=== PATIENT | female | born 1955 | race Asian ===

== ENCOUNTER 2016-11-07 19:34 | Emergency (ER) | payer OTHER ==
[2016-11-07 19:45] VITALS: TEMP 97.2; BMI 35.6
[2016-11-07] MEDS ORDERED: morphine CARPU-JECT 4 MG/1 ML DISP.SYRIN IVPUSH ONE ×2 (19:54→20:00)
[2016-11-07] MEDS ORDERED: morphine CARPU-JECT 4 MG/1 ML DISP.SYRIN ONE (19:56)
[2016-11-07 21:14] LABS: MCH 30.5 pg (25.7-33.7); MCHC 33.1 g/dl (32.0-36.0); MEAN CELL VOLUME 92.3 fl (80-96); MEAN PLT VOLUME 7.2 fl (7.5-11.1); PLATELET COUNT 187 K/MM3 (134-434); RDW 19.3 % (11.6-15.6); WHITE BLOOD COUNT 10.7 K/mm3 (4.0-10.0)
[2016-11-07 21:55] LABS: PLATELET ESTIMATE ADEQUATE (NORMAL)
[2016-11-07 22:20] LABS: ALBUMIN 2.7 g/dl (3.4-5.0); ANION GAP 7 (8-16); BILIRUBIN,TOTAL 0.5 mg/dL (0.2-1.0); CALCIUM 8.7 mg/dL (8.5-10.1); CO2 32 mmol/L (21-32); CREATININE 0.7 mg/dL (0.55-1.02); GLUCOSE,RANDOM 191 mg/dL (74-106); SGOT/AST 18 U/L (15-37); SGPT/ALT 32 U/L (12-78); TOT PROT 6.7 g/dl (6.4-8.2)
[2016-11-07 22:21] LABS: ALK PHOS 85 U/L (45-117)
[2016-11-07 22:48] LABS: URINE APPEARANCE SLCLOUDY; URINE BILIRUBIN NEGATIVE (NEGATIVE); URINE BLOOD 2+ (NEGATIVE); URINE COLOR LTYELLOW; URINE GLUCOSE (UA) NEGATIVE (NEGATIVE); URINE KETONE NEGATIVE (NEGATIVE); URINE NITRITE POSITIVE (NEGATIVE); URINE UROBILINOGEN NEGATIVE mg/dL (0.2-1.0)
[2016-11-07 22:58] LABS: URINE LEUK ESTERASE 3+ (NEGATIVE); URINE PROTEIN 1+ (NEGATIVE)
[2016-11-07 22:59] LABS: URINE RBC 9 /hpf (0-3); URINE WBC 93 /hpf (3-5)
[2016-11-07 23:00] LABS: URINE BACTERIA MANY /hpf (NONE SEEN)
[2016-11-07] MEDS ORDERED: CEFTRIAXONE 1 GM in DEXTROSE 5%-WATER - 50 ML IVPB ONE (23:13)
[2016-11-07] MEDS ORDERED: CEFTRIAXONE 50 ML ONE (23:22)
--- NOTE | 2016-11-08 00:23 | PDOC ---
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 On presentation the patient notes that the pain is severe and she is visibly uncomfortable. The son reports that the patient has never had urinary retention in the past. The patient denies chest pain, shortness of breath, headache and dizziness. Denies fever, chills, nausea, vomit, diarrhea and constipation. Denies dysuria, frequency, urgency and hematuria. Allergies: Aspirin, Ciprofloxacin Past surgical history: Colostomy bag, rectovaginal, bilateral nephro stenting Social history: No alcohol, tobacco or drug use reported <David Hutton - Last Filed: 11/08/16 00:24> <Patrick Cheng - Last Filed: 11/08/16 00:37> - General Chief Complaint: Pain, Acute Stated Complaint: PAIN Time Seen by Provider: 11/07/16 19:51 Past History <David Hutton - Last Filed: 11/08/16 00:24> - Past Medical History Anemia: Yes Cancer: Yes (vaginal 2014) Disorders: Yes (HEMATURIA,NEPHOSTOMY TUBES JACOBO.) HTN: Yes Thyroid Disease: No - Psycho/Social/Smoking Cessation Hx Anxiety: No Suicidal Ideation: No Smoking Status: No Smoking History: Never smoked Have you smoked in the past 12 months: No Number of Cigarettes Smoked Daily: 0 Information on smoking cessation initiated: No Hx Alcohol Use: No Drug/Substance Use Hx: No Substance Use Type: None Hx Substance Use Treatment: No <Patrick Cheng - Last Filed: 11/08/16 00:37> - Past Medical History Allergies/Adverse Reactions: Allergies Allergy/AdvReac Type Severity Reaction Status Date / Time aspirin Allergy Mild Rash Verified 11/07/16 19:48 ciprofloxacin Allergy Mild Rash Verified 11/07/16 19:48 Home Medications: Ambulatory Orders Metoprolol Succinate [Toprol XL -] 50 mg PO HS 02/08/12 Dexamethasone 4 mg PO DAILY 11/07/16 FENTANYL 12mcg PATCH [DURAGESIC 12mcg PATCH -] 1 patch TD PRN PRN 11/07/16 Glipizide 5 mg PO HS 11/07/16 Hydromorphone [Dilaudid -] 2 mg PO Q4H 11/07/16 Sulfamethoxazole/Trimethoprim [Bactrim Ds -] 1 tab PO BID #20 tablet 11/08/16 Review of Systems - Review of Systems Able to Perform ROS?: Yes Comments:: 11/08/16 00:24 CONSTITUTIONAL: No fever, no chills, no fatigue EYES: No visual changes ENT: No ear pain, no sore throat CARDIOVASCULAR: No chest pain, no palpitations RESPIRATORY: No cough, no SOB GI: (+) Diffuse abdominal pain. No nausea, no vomiting, no constipation, no diarrhea GENITOURINARY: (+) Urinary retention. No dysuria, no frequency, no hematuria MUSKULOSKELETAL: No backpain, no joint pain, no myalgias SKIN: No rash NEURO: No headache <David Hutton - Last Filed: 11/08/16 00:24> *Physical Exam - Vital Signs Last Vital Signs Temp Pulse Resp BP Pulse Ox 97.2 F L 99 H 16 147/104 99 11/07/16 19:42 11/07/16 19:42 11/07/16 19:42 11/07/16 19:42 11/07/16 21:00 <David Hutton - Last Filed: 11/08/16 00:24> - Vital Signs Last Vital Signs Temp Pulse Resp BP Pulse Ox 97.2 F L 99 H 16 147/104 99 11/07/16 19:42 11/07/16 19:42 11/07/16 19:42 11/07/16 19:42 11/07/16 21:00 - Physical Exam Comments: 11/08/16 00:29 Patient was seen and evaluated by me immediately upon arrival. This physical exam is being recorded prior to discharge. EXAMINATION CONSTITUTIONAL: On initial evaluation, patient is awake and alert, obese, writhing in pain; HEAD: Normocephalic; atraumatic EYES: PERRL; EOM intact ENMT: External appears normal; normal oropharynx NECK: Supple; non-tender; no cervical lymphadenopathy CARD: Normal S1, S2; no murmurs, rubs, or gallops RESP: Normal chest excursion with respiration; breath sounds clear and equal bilaterally; no wheezes, rhonchi, or rales ABD: Soft, distended; + soft tissue mass is palpable below the umbilicus consistent with a distended urinary bladder; + infraumbilical tender to palpation; no palpable organomegaly, no palpable hernias EXT: Normal ROM in all four extremities; non-tender to palpation; distal pulses intact SKIN: Warm, dry, no rash NEURO: No focal neurological deficiencies. <Patrick Cheng - Last Filed: 11/08/16 00:37> ED Treatment Course - LABORATORY CBC & Chemistry Diagram: 11/07/16 Unknown 11/07/16 20:40 - ADDITIONAL ORDERS Additional order review: Laboratory Results 11/07/16 11/07/16 20:40 20:40 Sodium 137 Potassium 4.0 Chloride 98 Carbon Dioxide 32 Anion Gap 7 L BUN 11 Creatinine 0.7 D Creat Clearance w eGFR > 60 Random Glucose 191 H D Calcium 8.7 Total Bilirubin 0.5 D AST 18 D ALT 32 D Alkaline Phosphatase 85 D Total Protein 6.7 Albumin 2.7 L Urine Color Ltyellow Urine Appearance Slcloudy Urine pH 6.0 Urine Protein 1+ H Urine Glucose (UA) Negative Urine Ketones Negative Urine Blood 2+ H Urine Nitrite Positive Urine Bilirubin Negative Urine Urobilinogen Negative Ur Leukocyte Esterase 3+ H Urine RBC 9 Urine WBC 93 Urine Bacteria Many 11/07/16 Unknown RBC 4.13 MCV 92.3 MCHC 33.1 RDW 19.3 H D MPV 7.2 L Neutrophils % 84.0 H D Lymphocytes % 12.0 D Monocytes % 4.0 - Medications Given in the ED: ED Medications Discontinued Medications Generic Name Dose Route Start Last Admin Trade Name Freq PRN Reason Stop Dose Admin Ceftriaxone Sodium 1 gm/ 50 mls @ 100 mls/hr 11/07/16 23:13 11/07/16 23:18 Dextrose IVPB 11/07/16 23:42 100 mls/hr ONCE ONE Administration Morphine Sulfate 4 mg 11/07/16 19:54 11/07/16 19:57 Morphine Injection - IVPUSH 11/07/16 19:55 4 mg ONCE ONE Administration Morphine Sulfate 4 mg 11/07/16 20:00 11/07/16 21:13 Morphine Injection - IVPUSH 11/07/16 20:01 4 mg ONCE ONE Administration <David Hutton - Last Filed: 11/08/16 00:24> - LABORATORY CBC & Chemistry Diagram: 11/07/16 Unknown 11/07/16 20:40 - ADDITIONAL ORDERS Additional order review: Laboratory Results 11/07/16 11/07/16 20:40 20:40 Sodium 137 Potassium 4.0 Chloride 98 Carbon Dioxide 32 Anion Gap 7 L BUN 11 Creatinine 0.7 D Creat Clearance w eGFR > 60 Random Glucose 191 H D Calcium 8.7 Total Bilirubin 0.5 D AST 18 D ALT 32 D Alkaline Phosphatase 85 D Total Protein 6.7 Albumin 2.7 L Urine Color Ltyellow Urine Appearance Slcloudy Urine pH 6.0 Urine Protein 1+ H Urine Glucose (UA) Negative Urine Ketones Negative Urine Blood 2+ H Urine Nitrite Positive Urine Bilirubin Negative Urine Urobilinogen Negative Ur Leukocyte Esterase 3+ H Urine RBC 9 Urine WBC 93 Urine Bacteria Many 11/07/16 Unknown RBC 4.13 MCV 92.3 MCHC 33.1 RDW 19.3 H D MPV 7.2 L Neutrophils % 84.0 H D Lymphocytes % 12.0 D Monocytes % 4.0 - RADIOLOGY Radiology Studies Ordered: Category Date Time Status ABDOMEN-KUB FLAT PLATE [RAD] Stat Radiology 11/07/16 20:14 Completed - Medications Given in the ED: ED Medications Discontinued Medications Generic Name Dose Route Start Last Admin Trade Name Gilq PRN Reason Stop Dose Admin Ceftriaxone Sodium 1 gm/ 50 mls @ 100 mls/hr 11/07/16 23:13 11/07/16 23:18 Dextrose IVPB 11/07/16 23:42 100 mls/hr ONCE ONE Administration Morphine Sulfate 4 mg 11/07/16 19:54 11/07/16 19:57 Morphine Injection - IVPUSH 11/07/16 19:55 4 mg ONCE ONE Administration Morphine Sulfate 4 mg 11/07/16 20:00 11/07/16 21:13 Morphine Injection - IVPUSH 11/07/16 20:01 4 mg ONCE ONE Administration <Patrick Cheng - Last Filed: 11/08/16 00:37> Medical Decision Making - Medical Decision Making 11/08/16 00:30 Patient is 61-year-old female with history of vaginal/cervical CVA who presented to the ER with symptoms of acute urinary retention. Devi catheter had been placed and approximately 900 mL of cloudy urine was obtained. Patient' s symptoms resolved immediately upon placement of Devi catheter. Soft tissue mass that was appreciated earlier was no longer palpable. CBC reveals no evidence of significant leukocytosis, predominance of neutrophils is noted. CMP reveals mild hyperglycemia. Urinalysis reveals pyuria which is nitrite positive. I suspect acute urinary retention related to acute UTI. Urine cultures been obtained. We'll administer a dose of ceftriaxone IV. Patient is able tolerate by mouth is safe for discharge with outpatient therapy with Bactrim with urology follow-up. <Patrick Cheng - Last Filed: 11/08/16 00:37> *DC/Admit/Observation/Transfer - Attestations Scribe Attestion: 11/08/16 00:24 Documentation prepared by David Hutton, acting as medical director occupational health for Patrick Cheng MD <David Hutton - Last Filed: 11/08/16 00:24> - Attestations Physician Attestion: 11/08/16 00:28 The documentation was prepared by the scribe under my direct supervision. I have reviewed the documentation which correctly represents the findings, medical decision-making and critical action taken by me. <Patrick Chneg - Last Filed: 11/08/16 00:37> Diagnosis at time of Disposition: Acute retention of urine Urinary tract infection Qualifiers: Urinary tract infection type: acute cystitis Hematuria presence: without hematuria Qualified Code(s): N30.00 - Acute cystitis without hematuria - Discharge Dispostion Disposition: HOME Condition at time of disposition: Stable - Referrals Referrals: Som Murphy MD [Primary Care Provider] - - Patient Instructions Printed Discharge Instructions: DI for Urinary Retention in Women, DI for Urinary Tract Infection (UTI)
[2016-11-08 00:40] VITALS: BP 100/50; PULSE 82
--- NOTE | 2016-11-10 14:22 | PDOC ---
Patient Follow-up (Call Back) - Post ED Follow - Up Condition at time of discharge: Stable Disposition at time of original discharge: HOME Reason for Call Back: Abnwl. Microbiology (Patient with positive urine culture, resistant to Bactrim which she was placed on changed to Macrobid called patient made aware she states she has no symptoms however we will change medication called into [facility].)
== END 2016-11-08 01:27 | disposition home or self-care (01) ==
LOC: JER 19:34
PROC: 3E03329 Introduction of Other Anti-infective into Peripheral Vein, Percutaneous Approach (ICD-10-PCS; principal; 2016-11-07)
PROC: 3E033NZ Introduction of Analgesics, Hypnotics, Sedatives into Peripheral Vein, Percutaneous Approach (ICD-10-PCS; 2016-11-07)
DX: N30.00 Acute cystitis without hematuria (principal); R33.9 Retention of urine, unspecified; Z85.41 Personal history of malignant neoplasm of cervix uteri; Z85.89 Personal history of malignant neoplasm of other organs and systems; I10 Essential (primary) hypertension
CPT/HCPCS: 36415; 74000-TC; 80053; 81003; 81015; 85025; 87086; 87186; 99283-25

== ENCOUNTER 2017-06-24 09:07 | Inpatient (IN) | payer OTHER ==
--- NOTE | 2017-06-24 10:46 | PDOC ---
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 Patient states her last chemo was in April, and patient has stopped treatment at the [facility] except for pain management. Patient complains of right upper quadrant pain and shortness of breath that is accompanied by a heavy feeling in her chest. She reports associated nausea, non-bloody vomiting, and non-bloody diarrhea. She also notes increased tiredness and dry mucous membranes. The patient denies headache and dizziness. The patient denies fever, chills, cough, and constipation. The patient denies dysuria, frequency, urgency and hematuria. Allergies: ciprofloxacin, aspirin Past Surgical History: rectovaginal, bilateral nephro stenting, colostomy bag Social History: No toxic habits reported PCP: Dr. Murphy <Porsha Gonsalez - Last Filed: 06/24/17 13:43> <Polly Cardenas - Last Filed: 06/24/17 14:15> - General Chief Complaint: Weakness Stated Complaint: SOB, WEAKNESS Time Seen by Provider: 06/24/17 10:40 Past History <Porsha Gonsalez - Last Filed: 06/24/17 13:43> - Past Medical History Anemia: Yes Cancer: Yes (vaginal 2014 with mets to lungs and liver) COPD: No Disorders: Yes (HEMATURIA,NEPHOSTOMY TUBES JACOBO.) HTN: Yes Thyroid Disease: No - Surgical History Abdominal Surgery: Yes (colostomy) - Suicide/Smoking/Psychosocial Hx Smoking Status: No Smoking History: Never smoked Have you smoked in the past 12 months: No Number of Cigarettes Smoked Daily: 0 Information on smoking cessation initiated: No Hx Alcohol Use: No Drug/Substance Use Hx: No Substance Use Type: None Hx Substance Use Treatment: No <Polly Cardenas - Last Filed: 06/24/17 14:15> - Past Medical History Allergies/Adverse Reactions: Allergies Allergy/AdvReac Type Severity Reaction Status Date / Time aspirin Allergy Mild Rash Verified 06/24/17 09:12 ciprofloxacin Allergy Mild Rash Verified 06/24/17 09:12 Home Medications: Ambulatory Orders Metoprolol Succinate [Toprol XL -] 50 mg PO HS 02/08/12 Dexamethasone 4 mg PO DAILY 11/07/16 FENTANYL 12mcg PATCH [DURAGESIC 12mcg PATCH -] 1 patch TD PRN PRN 11/07/16 Glipizide 5 mg PO HS 11/07/16 HYDROmorphone [Dilaudid -] 2 mg PO Q4H 11/07/16 Nitrofurantoin Monohyd/M-Cryst [Macrobid -] 100 mg PO BID #14 capsule 11/10/16 Review of Systems - Review of Systems Able to Perform ROS?: Yes Comments:: 06/24/17 11:49 GENERAL/CONSTITUTIONAL: No fever or chills. HEAD, EYES, EARS, NOSE AND THROAT: No change in vision. No ear pain or discharge. No sore throat. CARDIOVASCULAR: (+) Shortness of breath. No chest pain. RESPIRATORY: No cough, wheezing, or hemoptysis. GASTROINTESTINAL: (+ ) Abdominal pain, (+) nausea, (+) vomiting, (+) diarrhea. No constipation. GENITOURINARY: No dysuria, frequency, or change in urination. MUSCULOSKELETAL: No joint or muscle swelling or pain. No neck or back pain. SKIN: No rash NEUROLOGIC: No headache, vertigo, loss of consciousness, or change in strength/ sensation. ENDOCRINE: No increased thirst. No abnormal weight change. HEMATOLOGIC/LYMPHATIC: No anemia, easy bleeding, or history of blood clots. ALLERGIC/IMMUNOLOGIC: No hives or skin allergy. <Gonsalez,Porsha - Last Filed: 06/24/17 13:43> *Physical Exam - Vital Signs Last Vital Signs Temp Pulse Resp BP Pulse Ox 98.2 F 81 18 112/52 100 06/24/17 09:13 06/24/17 09:13 06/24/17 09:13 06/24/17 09:13 06/24/17 09:13 - Physical Exam Comments: 06/24/17 11:49 GENERAL: Awake, alert, and fully oriented, in no acute distress HEAD: No signs of trauma EYES: PERRLA, EOMI, sclera anicteric, conjunctiva clear ENT: Auricles normal inspection, hearing grossly normal, nares patent, oropharynx clear without exudates. (+) Dry mucosa NECK: Normal ROM, supple, no lymphadenopathy, JVD, or masses LUNGS: Breath sounds equal, clear to auscultation bilaterally. No wheezes, and no crackles HEART: Regular rate and rhythm, normal S1 and S2, no murmurs, rubs or gallops ABDOMEN: Soft, (+) RUQ and epigastric ttp, normoactive bowel sounds. No guarding, no rebound. No masses. (+) Colostomy bag at RLQ. EXTREMITIES: Normal range of motion, no edema. No clubbing or cyanosis. No cords, erythema, or tenderness NEUROLOGICAL: Cranial nerves II through XII grossly intact. SKIN: Warm, Dry, normal turgor, no rashes or lesions noted. BEDSIDE FAST EXAM: (+) Mass in liver, (+) B/L pleural effusion. No free fluid in the belly. <Porsha Gonsalez - Last Filed: 06/24/17 13:43> - Vital Signs Last Vital Signs Temp Pulse Resp BP Pulse Ox 98.2 F 81 18 112/52 100 06/24/17 09:13 06/24/17 09:13 06/24/17 09:13 06/24/17 09:13 06/24/17 09:13 <Polly Cardenas - Last Filed: 06/24/17 14:15> Heart Score/ECG Review - ECG Intrepretation Comment:: 06/24/17 14:14 sinus at 76, RBBB, t wave inversions inferior leads, u waves, abnl ekg <Polly Cardenas - Last Filed: 06/24/17 14:15> ED Treatment Course - LABORATORY CBC & Chemistry Diagram: 06/24/17 12:03 06/24/17 12:03 - Medications Given in the ED: ED Medications Discontinued Medications Generic Name Dose Route Start Last Admin Trade Name Freq PRN Reason Stop Dose Admin Morphine Sulfate 4 mg 06/24/17 10:48 06/24/17 11:33 Morphine Injection - IVPUSH 06/24/17 10:49 4 mg ONCE ONE Administration Ondansetron HCl 4 mg 06/24/17 10:48 06/24/17 11:33 Zofran Injection IVPUSH 06/24/17 10:49 4 mg ONCE ONE Administration Sodium Chloride 1,000 ml 06/24/17 10:47 06/24/17 11:33 Normal Saline - IV 06/24/17 10:48 1,000 ml ONCE ONE Administration Sodium Chloride 1,000 ml 06/24/17 10:48 06/24/17 11:33 Normal Saline - IV 06/24/17 10:49 1,000 ml ONCE ONE Administration <Porsha Gonsalez - Last Filed: 06/24/17 13:43> - LABORATORY CBC & Chemistry Diagram: 06/24/17 12:03 06/24/17 12:03 <Polly Cardenas - Last Filed: 06/24/17 14:15> Medical Decision Making - Medical Decision Making 06/24/17 13:27 a/p: 61yo female with hx of vaginal stage IV ca with mets to liver and lungs -has been treated at [facility] in [place] -has been on hospice - currently off hospic -cp and abd pain -n/v, decreased output from ostomy -pt appears dehydrated -will check labs, bedside ultrasound shows large R pleural effusion, small L -will obtain ct chest/abd/pelvis -morphine for pain control -will monitor and reassess 06/24/17 13:40 -hyponatremia -dehydration -pleural effusion -case discussed with PMD who accepts pt to service -requests consult to dr. parker and dr. khan for further eval ct pending <Polly Cardenas - Last Filed: 06/24/17 14:15> *DC/Admit/Observation/Transfer - Attestations Scribe Attestion: 06/24/17 11:49 Documentation prepared by Porsha Gonsalez, acting as vp medical for Polly Cardenas DO, MD/. <Porsha Gonsalez - Last Filed: 06/24/17 13:43> - Discharge Dispostion Admit: Yes - Attestations Physician Attestion: 06/24/17 13:43 I, Dr. Polly Cardenas DO, attest that this document has been prepared under my direction and personally reviewed by me in its entirety. I further attest, that it accurately reflects all work, treatment, procedures and medical decision -making performed by hi. <Polly Cardenas - Last Filed: 06/24/17 14:15> Diagnosis at time of Disposition: Pleural effusion, Vomiting, Hypokalemia, Pain - Discharge Dispostion Condition at time of disposition: Fair - Referrals Referrals: Som Murphy MD [Primary Care Provider] - - Patient Instructions - Post Discharge Activity
[2017-06-24] MEDS ORDERED: SODIUM CHLORIDE 0.9% 1000 ML INFUS.BAG IV ONE ×2 (10:47→10:48)
[2017-06-24] MEDS ORDERED: morphine CARPU-JECT 4 MG/1 ML DISP.SYRIN IVPUSH ONE ×2 (10:48→17:23)
[2017-06-24] MEDS ORDERED: FAMOTIDINE 20 MG/50 ML IVPB 20 MG/50 ML MG IVPB ONE ×2 (10:48→15:40)
[2017-06-24] MEDS ORDERED: ONDANSETRON 4 MG/2 ML VIAL IVPUSH ONE (10:48)
[2017-06-24] MEDS ORDERED: morphine SULFATE 4 MG/ML VIAL ONE ×2 (11:27→17:39)
[2017-06-24] MEDS ORDERED: ONDANSETRON 4 MG/2 ML VIAL ONE (11:27)
[2017-06-24 12:18] LABS: BASO % 0.4 % (0-2.0); EOS % 1.7 % (0-4.5); HEMATOCRIT 31.8 % (32.4-45.2); HEMOGLOBIN 10.4 GM/dL (10.7-15.3); LYMPH % 9.3 % (8-40); MCH 26.3 pg (25.7-33.7); MCHC 32.6 g/dl (32.0-36.0); MEAN CELL VOLUME 80.8 fl (80-96); MEAN PLT VOLUME 7.2 fl (7.5-11.1); MONO % 9.9 % (3.8-10.2); NEUT % 78.7 % (42.8-82.8); PLATELET COUNT 243 K/MM3 (134-434); RBC 3.94 M/mm3 (3.60-5.2); RDW 20.4 % (11.6-15.6); WHITE BLOOD COUNT 9.5 K/mm3 (4.0-10.0)
[2017-06-24 12:21] LABS: URINE APPEARANCE SLCLOUDY; URINE BILIRUBIN NEGATIVE (<2.0 mg/dL); URINE COLOR YELLOW; URINE GLUCOSE (UA) NEGATIVE (NEGATIVE); URINE KETONE NEGATIVE (NEGATIVE); URINE NITRITE NEGATIVE (NEGATIVE); URINE PROTEIN NEGATIVE (NEGATIVE); URINE UROBILINOGEN NEGATIVE mg/dL (0.2-1.0)
[2017-06-24 12:23] LABS: URINE LEUK ESTERASE 2+ (NEGATIVE)
[2017-06-24 12:32] LABS: INR 1.47 (0.82-1.09); PROTHROMBIN TIME (PATIENT) 16.6 SEC (9.98-11.88)
[2017-06-24 12:35] LABS: ACTIVATED PTT 36.1 SECONDS (26.9-34.4)
[2017-06-24 12:48] LABS: ALBUMIN 1.8 g/dl (3.4-5.0); ANION GAP 11 (8-16); BLOOD UREA NITROGEN 3 mg/dL (7-18); CALCIUM 8.3 mg/dL (8.5-10.1); CHLORIDE 100 mmol/L (98-107); CO2 28 mmol/L (21-32); CREATININE 0.5 mg/dL (0.55-1.02); GLUCOSE,RANDOM 105 mg/dL (74-106); LIPASE 51 U/L (73-393); MAGNESIUM 1.9 mg/dL (1.8-2.4); SGOT/AST 46 U/L (15-37); SGPT/ALT 17 U/L (12-78); SODIUM 139 mmol/L (136-145)
[2017-06-24 12:53] LABS: ALK PHOS 136 U/L (45-117); BILIRUBIN,TOTAL 0.8 mg/dL (0.2-1.0); TOT PROT 7.1 g/dl (6.4-8.2)
[2017-06-24 12:57] LABS: POTASSIUM 2.9 mmol/L (3.5-5.1)
[2017-06-24] MEDS ORDERED: POTASSIUM CHLORIDE TABS 20 MEQ TABLET.ER (FP) PO ONE ×2 (13:04→13:59)
[2017-06-24] MEDS ORDERED: KCL 10 MEQ IVPB 10 MEQ/100 ML INFUS.BAG IVPB SCH (13:15)
--- NOTE | 2017-06-24 14:36 | EKG ---
Test Reason : Blood Pressure : / mmHG Vent. Rate : 076 BPM Atrial Rate : 076 BPM P-R Int : 174 ms QRS Dur : 140 ms QT Int : 412 ms P-R-T Axes : 042 066 012 degrees QTc Int : 463 ms POOR DATA QUALITY IN CURRENT ECG PRECLUDES SERIAL COMPARISON NORMAL SINUS RHYTHM RIGHT BUNDLE BRANCH BLOCK T WAVE ABNORMALITY, CONSIDER INFERIOR ISCHEMIA ABNORMAL ECG WHEN COMPARED WITH ECG OF 09-SEP-2014 13:06, RIGHT BUNDLE BRANCH BLOCK IS NOW PRESENT Confirmed by LUIS ALBERTO HENRY MD ([id number]) on 06/24/2017 2:36:37 PM Referred By: Confirmed By:LUIS ALBERTO HENRY MD
[2017-06-24 16:01] LABS: EPI CELLS MODERATE /HPF (FEW); TRIPLE PHOSPHATE CRYSTAL MODERATE /hpf (NONE SEEN); URINE BACTERIA MODERATE /hpf (NONE SEEN)
[2017-06-24] MEDS: POTASSIUM CHLORIDE 10 MEQ in SODIUM CHLORIDE 100 ML IVPB SCH ×4 (18:29→22:26)
[2017-06-24] MEDS ORDERED: ZOLPIDEM TARTRATE 5 MG TABLET PO PRN (22:42)
[2017-06-24] MEDS: MONTELUKAST NA 10 MG TABLET PO SCH (23:10)
--- NOTE | 2017-06-24 23:47 | CONSULT ---
Consult - text type - Consultation Consultation Note: Patient seen and examined The patient is a 61-year-old female with a significant past medical history of stage IV ? vaginal cancer with metastases to the lungs and liver s/p chemotherapy and radiation, s/p rectovaginal, s/p bilateral nephro stenting, s/ p colostomy, diabetes, and HTN, who presents to the emergency department with abdominal pain, shortness of breath, and diffuse chest discomfort. Patient states her last chemo was in April, and patient has stopped treatment at the [facility] except for pain management. Patient complains of right upper quadrant pain and shortness of breath that is accompanied by a heavy feeling in her chest. She reports associated nausea, non-bloody vomiting, and non-bloody diarrhea. She also notes increased tiredness and dry mucous membranes. The patient denies headache and dizziness. The patient denies fever, chills, cough, and constipation. The patient denies dysuria, frequency, urgency and hematuria. Allergies: ciprofloxacin, aspirin Past Surgical History: rectovaginal, bilateral nephro stenting, colostomy bag - Past Medical History Anemia: Yes Cancer: Yes (vaginal 2014 with mets to lungs and liver) COPD: No Disorders: Yes (HEMATURIA,NEPHOSTOMY TUBES JACOBO.) HTN: Yes - Surgical History Abdominal Surgery: Yes (colostomy) - Suicide/Smoking/Psychosocial Hx Smoking History: Never smoked Allergies/Adverse Reactions: Allergies Allergy/AdvReac Type Severity Reaction Status Date / Time aspirin Allergy Mild Rash Verified 06/24/17 09:12 ciprofloxacin Allergy Mild Rash Verified 06/24/17 09:12 Home Medications: Ambulatory Orders Metoprolol Succinate [Toprol XL -] 50 mg PO HS 02/08/12 Dexamethasone 4 mg PO DAILY 11/07/16 FENTANYL 12mcg PATCH [DURAGESIC 12mcg PATCH -] 1 patch TD PRN PRN 11/07/16 Glipizide 5 mg PO HS 11/07/16 HYDROmorphone [Dilaudid -] 2 mg PO Q4H 11/07/16 Nitrofurantoin Monohyd/M-Cryst [Macrobid -] 100 mg PO BID #14 capsule 11/10/16 - Vital Signs Last Vital Signs Temp Pulse Resp BP Pulse Ox 98.2 F 81 18 112/52 100 06/24/17 09:13 06/24/17 09:13 06/24/17 09:13 06/24/17 09:13 06/24/17 09:13 GENERAL: Awake, alert, and fully oriented, in no acute distress HEAD: No signs of trauma LUNGS: Breath sounds equal, decreased at bases HEART: Regular rate and rhythm, normal S1 and S2, no murmurs, rubs or gallops ABDOMEN: Soft, (+) RUQ and epigastric ttp, normoactive bowel sounds. (+) Colostomy bag at RLQ. EXTREMITIES: Normal range of motion, no edema. No clubbing or cyanosis. No cords, erythema, or tenderness NEUROLOGICAL: Cranial nerves II through XII grossly intact. a/p 61yo female with hx of ? vaginal stage IV ca with mets to liver and lungs -has been treated at [facility] in [place] -has been on hospice -came off hospice -comes in with large pleural effusion/lung and liver mets for pain control--fentanyl 75mcg and morphine 4mg Q6h prn pulmonary consult--drainage of effusion discussed with daughter at bed side
[2017-06-25 01:23] VITALS: BMI 31.6
--- NOTE | 2017-06-25 02:37 | HP ---
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 Patient was getting the treatment from [facility] [place]. Her last chemotherapy was in April, and the patient decided to stop the treatment as per the worsening of the symptoms and no relief with the treatment. Patient was palliative in hospice, but decided to discontinue the hospice care. The patient was getting the pain management. Patient also complains of right upper quadrant pain, shortness of breath, and that gives her a heavy feeling in her chest. Denies any headache, dizziness. Denies fever, chills, cough, and constipation. No urinary symptoms. ALLERGIES: Patient is allergic to CIPRO and ASPIRIN. PAST MEDICAL HISTORY: As mentioned before. Hypertension; diabetes; vaginal cancer, stage IV, metastasis to the liver, lung, and bone; status post stent placement , status post colostomy. SURGICAL HISTORY: History of colostomy, nephrostomy stenting. SOCIAL HISTORY: Nonsmoker. No history of any drug administration. Patient lives with the family. PERSONAL HISTORY: Nothing significant. MEDICATION: Patient is on metoprolol succinate 250 mg daily, dexamethasone 4 mg daily, fentanyl patch 12 mcg patch, Duragesic patch 1 patch p.r.n., glipizide 5 mg p.o. nightly, Dilaudid tablet 2 mg p.o. q.4 hourly, nitrofurantoin (Macrobid) 100 mg p.o. b.i.d. REVIEW OF SYSTEMS: General and Constitutional: Patient feels tired and dehydrated. No fever. No chills. Head and Neck: No change in vision. No headache. No ear pain. Cardiovascular: Shortness of breath. No chest pain. Respiratory: No wheezing. No cough. Shortness of breath present. Gastrointestinal: Abdominal pain, nausea, vomiting, diarrhea. No constipation. Genitourinary: No urinary symptoms. Musculoskeletal: No joint pain. No swelling. Neurological: No headache. No vertigo. No loss of consciousness. No change in vision. No sensory or motor symptoms. Hematologic: No anemia. No easy bruising or bleeding. No history of blood clot. PHYSICAL EXAMINATION: Vital Signs: On examination of the patient in the emergency room, temperature 98.2, pulse rate 81, respirations 18, blood pressure 112/52, saturation 100%. General: Awake, alert, and fully oriented. No acute distress. Head and Neck: No signs of trauma. Pupils equally reactive to light and accommodation. Ears normal. Dehydration. Dry mucosa. Neck full range of movement. No JVD. Lungs: Clear to auscultation. Decreased breath sounds on the right side. No wheezing. No crackles. Heart: Regular rate and rhythm. Normal S1 and S2. Abdomen: Soft. Mild right upper quadrant and epigastric tenderness. Normal bowel sounds. No guarding. No rigidity. Colostomy bag in the right lower quadrant. Extremities: Normal range of motion. No edema. No clubbing or cyanosis. No erythema. Neurological: Cranial nerves II through XII grossly intact. Skin: Warm, dry. Dehydration present. EKG done, shows sinus rhythm, 76 per minute, right bundle branch block, T-wave inversion in inferior leads. LABORATORY DATA: CBC: WBC 9.5, hemoglobin 10.4, hematocrit 31.8, platelets 243. Sodium 139, potassium 2.9, chloride 100, bicarbonate 28, creatinine 0.5, BUN 3, glucose 105, lactic acid 1.1, calcium 8.3. AST 46, ALT 17, alkaline phosphatase 136. Creatinine kinase 37. Troponin negative. Lipase 51. Albumin 1.8. PT is 16.6, INR 1.47, PTT 36.1. Urine negative except leukocyte esterase 2+, bacteria moderate. Chest x-ray shows right pleural effusion with some bibasilar atelectasis or infiltrate. Right nodular density in the right upper lobe. Left lung is clear. There is a large heart. Bones and tissues are intact. CT of the abdomen and pelvis and chest done, shows no evidence of pulmonary embolism, large right pleural effusion with extensive atelectasis of the right middle lobe and lower lobe, multiple bilateral pulmonary masses consistent with metastatic disease, multiple hypodense liver lesions consistent with metastatic disease, large lesion occupies most of the right lobe, status post bilateral ureteral stent with mild residual hydronephrosis, status post left lower quadrant colostomy, status post hysterectomy with no additional evidence of metastatic disease in the pelvis. Patient was given morphine sulfate injection, Zofran injection, IV fluid, and potassium in the emergency room. A 61-year-old female with a history of vaginal cancer metastasis to the liver and lung status post chemotherapy and radiation at the [facility] [place], has been on hospice, currently not on hospice, admitted with chest pain and abdominal pain. So, patient admitted on the floor with abdominal pain, shortness of breath, tiredness, nausea, vomiting, diarrhea, right pleural effusion, hypokalemia. PLAN: IV fluid, potassium replacement, hematology consult, pulmonary consult, pain management. Will monitor the labs, resume the home medications. Patient is stable. CHANO HUTCHINS M.D. [id number]
[2017-06-25] MEDS: METOCLOPRAMIDE HCL 10 MG TABLET (FP) PO SCH ×3 (03:43→22:12)
[2017-06-25 07:18] LABS: BASO % 0.4 % (0-2.0); EOS % 2.7 % (0-4.5); HEMOGLOBIN 10.7 GM/dL (10.7-15.3); LYMPH % 12.9 % (8-40); MCH 26.5 pg (25.7-33.7); MCHC 32.6 g/dl (32.0-36.0); MEAN CELL VOLUME 81.4 fl (80-96); MEAN PLT VOLUME 7.4 fl (7.5-11.1); MONO % 12.5 % (3.8-10.2); NEUT % 71.5 % (42.8-82.8); PLATELET COUNT 243 K/MM3 (134-434); RBC 4.05 M/mm3 (3.60-5.2); RDW 20.2 % (11.6-15.6); WHITE BLOOD COUNT 8.3 K/mm3 (4.0-10.0)
[2017-06-25 07:51] LABS: ANION GAP 3 (8-16); BILIRUBIN,TOTAL 0.8 mg/dL (0.2-1.0); BLOOD UREA NITROGEN 3 mg/dL (7-18); CHLORIDE 101 mmol/L (98-107); CO2 34 mmol/L (21-32); CREATININE 0.5 mg/dL (0.55-1.02); GLUCOSE,RANDOM 101 mg/dL (74-106); POTASSIUM 3.8 mmol/L (3.5-5.1); SGOT/AST 44 U/L (15-37); SGPT/ALT 17 U/L (12-78); SODIUM 138 mmol/L (136-145)
[2017-06-25 07:52] LABS: ALK PHOS 138 U/L (45-117); TOT PROT 7.2 g/dl (6.4-8.2)
[2017-06-25] MEDS: ALBUTEROL SO4 0.083% IH SOL 2.5 MG/3 ML VIAL.NEB. NEB PRN (08:30)
--- NOTE | 2017-06-25 10:04 | PN ---
Progress Note, Physician Chief Complaint: Pt lying in bed,vitals stable sob present,pleural effusion present pul consult pending K corrected pt is on pain meds - Current Medication List Current Medications: Active Medications Albuterol Sulfate (Ventolin 0.083% Nebulizer Soln -) 1 amp NEB Q6H PRN PRN Reason: SHORT OF BREATH/WHEEZING Fentanyl (Duragesic 75mcg Patch -) 1 patch TD Q72H [facility] Metoclopramide HCl (Reglan -) 10 mg PO TID [facility] Last Admin: 06/25/17 03:43 Dose: 10 mg Metoprolol Succinate (Toprol Xl -) 50 mg PO HS [facility] Last Admin: 06/24/17 23:10 Dose: 50 mg Montelukast Sodium (Singulair -) 10 mg PO HS [facility] Last Admin: 06/24/17 23:10 Dose: 10 mg Morphine Sulfate (Morphine Sulfate) 4 mg IVPUSH Q6H PRN PRN Reason: PAIN LEVEL 6-10 Zolpidem Tartrate (Ambien -) 5 mg PO HS PRN PRN Reason: INSOMNIA Last Admin: 06/25/17 00:05 Dose: 5 mg - Objective Vital Signs: Vital Signs Temperature 98.4 F 06/25/17 08:17 Pulse Rate 83 06/25/17 08:17 Respiratory Rate 18 06/25/17 08:26 Blood Pressure 117/74 06/25/17 08:17 O2 Sat by Pulse Oximetry (%) 100 06/25/17 08:26 Constitutional: Yes: No Distress Eyes: Yes: WNL HENT: Yes: WNL Neck: Yes: WNL Cardiovascular: Yes: Regular Rate and Rhythm Respiratory: Yes: CTA Bilaterally, Diminished, On Nasal O2, SOB on Exertion, Other (breath sound diminished on rt lkung base) Gastrointestinal: Yes: Normal Bowel Sounds, Other (colostomy bag in place) Musculoskeletal: Yes: WNL Extremities: Yes: WNL Edema: No Peripheral Pulses WNL: Yes Neurological: Yes: WNL, Alert, Oriented ...Motor Strength: WNL Psychiatric: Yes: WNL, Alert Labs: CBC, BMP 06/25/17 06:57 06/25/17 06:57 INR, PTT INR 1.47 (0.82-1.09) H D 06/24/17 12:03 - ....Imaging Chest X-ray: Report Reviewed Cat Scan: Report Reviewed EKG: Report Reviewed Assessment/Plan SOB,pleural effusuion Stage 1v vaginal cancer with lung and hepatic METS HTN Dm PLAN Continue Pain meds Nutrition consult pending Pulmonary consult d/c telemetry
--- NOTE | 2017-06-25 11:38 | PN ---
Physical Exam: SERVICE: Heme/Onc SUBJECTIVE: Pt reported through son at bedside that she's still experiencing shortness of breath, pain in the R flank, and n/v but these symptoms have drastically improved since admission. No other acute event per her nurse. OBJECTIVE: Vital Signs Period Temp Pulse Resp BP Sys/Stanley Pulse Ox Last 24 Hr 97.8 F-99 F 83-87 18-18 110-124/64-84 100-100 GENERAL: AAO x 3, appears tired and sleepy, no in cardiopulmonary distress HEAD: AT, NC EYES: PERRLA, sclera anicteric, conjunctiva pale ENT: oropharynx clear without exudates, moist mucous membranes. NECK: No bruits or lymphedopathy LUNGS: CTAB HEART: RRR, S1, S2 without murmur, rub or gallop. ABDOMEN: Soft, RUQ tenderness, nondistended, normoactive bowel sounds, no guarding, no rebound, colostomy bag and vertical surgical scar. EXTREMITIES: no peripheral edema. CBCD WBC 8.3 K/mm3 (4.0-10.0) 06/25/17 06:57 RBC 4.05 M/mm3 (3.60-5.2) 06/25/17 06:57 Hgb 10.7 GM/dL (10.7-15.3) 06/25/17 06:57 Hct 33.0 % (32.4-45.2) 06/25/17 06:57 MCV 81.4 fl (80-96) 06/25/17 06:57 MCHC 32.6 g/dl (32.0-36.0) 06/25/17 06:57 RDW 20.2 % (11.6-15.6) H 06/25/17 06:57 Plt Count 243 K/MM3 (134-434) 06/25/17 06:57 MPV 7.4 fl (7.5-11.1) L 06/25/17 06:57 CMP Sodium 138 mmol/L (136-145) 06/25/17 06:57 Potassium 3.8 mmol/L (3.5-5.1) 06/25/17 06:57 Chloride 101 mmol/L (98-107) 06/25/17 06:57 Carbon Dioxide 34 mmol/L (21-32) H 06/25/17 06:57 Anion Gap 3 (8-16) L 06/25/17 06:57 BUN 3 mg/dL (7-18) L 06/25/17 06:57 Creatinine 0.5 mg/dL (0.55-1.02) L 06/25/17 06:57 Creat Clearance w eGFR > 60 (>60) 06/25/17 06:57 Calcium 9.0 mg/dL (8.5-10.1) 06/25/17 06:57 Total Bilirubin 0.8 mg/dL (0.2-1.0) 06/25/17 06:57 AST 44 U/L (15-37) H 06/25/17 06:57 ALT 17 U/L (12-78) 06/25/17 06:57 Alkaline Phosphatase 138 U/L (45-117) H 06/25/17 06:57 Total Protein 7.2 g/dl (6.4-8.2) 06/25/17 06:57 Albumin 2.0 g/dl (3.4-5.0) L 06/25/17 06:57 Active Medications Generic Name Dose Route Start Last Admin Trade Name Freq PRN Reason Stop Dose Admin Albuterol Sulfate 1 amp 06/24/17 22:43 Ventolin 0.083% Nebulizer Soln - NEB Q6H PRN SHORT OF BREATH/WHEEZING Amino Acids 30 ml 06/25/17 17:30 Prosource No Carb Liquid Pkt PO BID@0800,1730 [facility] Fentanyl 1 patch 06/27/17 10:00 Duragesic 75mcg Patch - TD Q72H [facility] Dextrose/Sodium Chloride 1,000 mls @ 75 mls/hr 06/25/17 10:15 D5-1/2ns - IV ASDIR [facility] Metoclopramide HCl 10 mg 06/25/17 03:45 06/25/17 03:43 Reglan - PO 10 mg TID OZZIE Administration Metoprolol Succinate 50 mg 06/24/17 22:45 06/24/17 23:10 Toprol Xl - PO 50 mg HS OZZIE Administration Montelukast Sodium 10 mg 06/24/17 22:45 06/24/17 23:10 Singulair - PO 10 mg HS OZZIE Administration Morphine Sulfate 4 mg 06/24/17 22:44 Morphine Sulfate IVPUSH Q6H PRN PAIN LEVEL 6-10 Zolpidem Tartrate 5 mg 06/24/17 22:42 06/25/17 00:05 Ambien - PO 5 mg HS PRN Administration INSOMNIA ASSESSMENT 61 yo F h/o stage IV vaginal cancer w/ mets to lungs and liver s/p chemo and RT admitted to the hospital for intractable abd pain and shortness of breath. PLAN Stage IV vaginal cancer w/ mets to liver and lungs: supportive care with symptom control, reglan for n/v and morphine, fentanyl patch for pain control. Jefferson Cassidy PGY2 [id number] Visit type - Emergency Visit Emergency Visit: No - New Patient This patient is new to me today: Yes Date on this admission: 06/25/17 - Critical Care Critical Care patient: No - Discharge Referral Referred to [facility] No
[2017-06-25] MEDS: DEXTROSE 5%-0.45% SALINE 1,000 ML IV SCH (12:07)
--- NOTE | 2017-06-25 13:35 | CON.PULM ---
Consult Consult Specialty:: PULM/CCM Referred by:: GARY Reason for Consultation:: SOB / CP - History of Present Illness Chief Complaint: SOB / RIGHT CP History of Present Illness: 61 F, stage IV vaginal cancer with known metastases to the lungs and liver ( since 2016) s/p chemotherapy and radiation, s/p bilateral renal stenting, s/p colostomy, diabetes, and HTN. Patient with known small amount of pleural effusion, but has never been tapped. Worsening right sided pleuritic type CP as well as flank pain that seems to radiate down to her groin. Reports chest heaviness, especially when she lays flat. No night sweats, fever, hemoptysis, etc. - History Source History Provided By: Patient, Family Member Limitations to Obtaining History: No Limitations - Past Medical History Cardio/Vascular: Yes: HTN - Alcohol/Substance Use Hx Alcohol Use: No - Smoking History Smoking history: Never smoked Have you smoked in the past 12 months: No Aproximately how many cigarettes per day: 0 - Social History Usual Living Arrangement: Other (With family) Home Medications - Allergies Allergies/Adverse Reactions: Allergies Allergy/AdvReac Type Severity Reaction Status Date / Time aspirin Allergy Mild Rash Verified 06/24/17 09:12 ciprofloxacin Allergy Mild Rash Verified 06/24/17 09:12 - Home Medications Home Medications: Ambulatory Orders Albuterol Sulfate 0.3 PRN 06/24/17 Ambien 5 mg PO HS 06/24/17 Fentanyl 75 mcg TD ASDIR 06/24/17 Glipizide 5 mg PO HS 06/24/17 Metoprolol Suazo/Hydrochlorothiaz 50 mg PO HS 06/24/17 Singulair 10 mg PO DAILY 06/24/17 Tramadol HCl 50 mg As directed PRN 06/24/17 Review of Systems - Review of Systems Constitutional: reports: Malaise, Weakness. denies: Chills, Fever, Night Sweats Eyes: reports: No Symptoms HENT: reports: No Symptoms Neck: reports: No Symptoms Cardiovascular: reports: Chest Pain, Shortness of Breath. denies: Edema, Palpitations Respiratory: reports: Cough, SOB, SOB on Exertion. denies: Hemoptysis, Snoring , Wheezing Gastrointestinal: reports: No Symptoms Genitourinary: reports: Flank Pain Breasts: reports: No Symptoms Reported Musculoskeletal: reports: Back Pain, Muscle Pain, Muscle Cramps Integumentary: reports: No Symptoms Neurological: reports: No Symptoms Endocrine: reports: No Symptoms Hematology/Lymphatic: reports: No Symptoms Psychiatric: reports: No Symptoms Physical Exam Vital Sings: Vital Signs Temperature 98.4 F 06/25/17 08:17 Pulse Rate 83 06/25/17 08:17 Respiratory Rate 18 06/25/17 08:26 Blood Pressure 117/74 06/25/17 08:17 O2 Sat by Pulse Oximetry (%) 100 06/25/17 08:26 Constitutional: Yes: No Distress Eyes: Yes: Conjunctiva Clear, EOM Intact HENT: Yes: Atraumatic, Normocephalic Neck: Yes: Supple, Trachea Midline Cardiovascular: Yes: Regular Rate and Rhythm Respiratory: Yes: Cough, Diminished, Dullness, On Nasal O2, Rhonchi, SOB. No: Accessory Muscle Use, Rales, Stridor, Wheezes ...Inspection: Yes: WNL ...Clubbing: No Gastrointestinal: Yes: Normal Bowel Sounds, Soft, Abdomen, Obese. No: Pulsatile Mass Renal/: Yes: WNL Musculoskeletal: Yes: Back Pain, Muscle Pain Extremities: Yes: WNL Edema: No Peripheral Pulses WNL: Yes Integumentary: Yes: WNL Neurological: Yes: Alert, Oriented ...Motor Strength: WNL Psychiatric: Yes: WNL, Alert, Oriented Labs: CBC, BMP 06/25/17 06:57 06/25/17 06:57 Imaging - Results Chest X-ray: Report Reviewed, Image Reviewed Cat Scan: Report Reviewed, Image Reviewed Problem List - Problems (1) Pain Code(s): R52 - PAIN, UNSPECIFIED (2) Pleural effusion Code(s): J90 - PLEURAL EFFUSION, NOT ELSEWHERE CLASSIFIED (3) Hypertension Code(s): I10 - ESSENTIAL (PRIMARY) HYPERTENSION (4) Obstructive uropathy Code(s): N13.9 - OBSTRUCTIVE AND REFLUX UROPATHY, UNSPECIFIED Assessment/Plan IR evaluation CTS evaluation Would monitor off ABX O2 as needed Pain control VTE prophylaxis Will follow Thank you. Dr Orona
--- NOTE | 2017-06-25 13:37 | PN ---
Progress Note (short form) - Note Progress Note: Seen and examined. Chart reviewed. continues to have difficulty breathing. O/E: General: Mild distress HEENT: NCAT Cor: rrr Lungs: Decreased breath sounds Abd: Obese LE: No edema Neuro: AAOX3 Last Vital Signs Temp Pulse Resp BP Pulse Ox 98.4 F 83 18 117/74 100 06/25/17 08:17 06/25/17 08:17 06/25/17 08:26 06/25/17 08:17 06/25/17 08:26 CBC, BMP 06/25/17 06:57 06/25/17 06:57 Current Medications Generic Name Dose Route Start Last Admin Trade Name Freq PRN Reason Stop Dose Admin Albuterol Sulfate 1 amp 06/24/17 22:43 06/25/17 08:30 Ventolin 0.083% Nebulizer Soln - NEB 1 amp Q6H PRN Administration SHORT OF BREATH/WHEEZING Amino Acids 30 ml 06/25/17 17:30 Prosource No Carb Liquid Pkt PO BID@0800,1730 [facility] Fentanyl 1 patch 06/27/17 10:00 Duragesic 75mcg Patch - TD Q72H [facility] Dextrose/Sodium Chloride 1,000 mls @ 75 mls/hr 06/25/17 10:15 06/25/17 12:07 D5-1/2ns - IV 75 mls/hr ASDIR OZZIE Administration Metoclopramide HCl 10 mg 06/25/17 03:45 06/25/17 03:43 Reglan - PO 10 mg TID OZZIE Administration Metoprolol Succinate 50 mg 06/24/17 22:45 06/24/17 23:10 Toprol Xl - PO 50 mg HS OZZIE Administration Montelukast Sodium 10 mg 06/24/17 22:45 06/24/17 23:10 Singulair - PO 10 mg HS [facility]IE Administration Morphine Sulfate 4 mg 06/24/17 22:44 Morphine Sulfate IVPUSH Q6H PRN PAIN LEVEL 6-10 Zolpidem Tartrate 5 mg 06/24/17 22:42 06/25/17 00:05 Ambien - PO 5 mg HS PRN Administration INSOMNIA 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 Pulm c/s appreciated Supportive care Pain control
[2017-06-25] MEDS ORDERED: FAMOTIDINE IV 20 MG/12 ML VIAL IVPB ONE (15:23)
[2017-06-25] MEDS: AMINO ACIDS/PROTEIN HYDROLYS 30 ML LIQUID.PKT PO SCH (16:42)
[2017-06-25] MEDS ORDERED: FAMOTIDINE 20 MG/50 ML IVPB 20 MG/50 ML MG IVPB ONE (16:45)
[2017-06-25] MEDS ORDERED: PORTA CATH FLUSH 10 ML IVPUSH PRN (18:10)
[2017-06-25] MEDS: MONTELUKAST NA 10 MG TABLET PO SCH (22:12)
[2017-06-26] MEDS: morphine SULFATE 4 MG/ML VIAL IVPUSH PRN (00:13)
[2017-06-26] MEDS: METOCLOPRAMIDE HCL 10 MG TABLET (FP) PO SCH ×3 (06:23→21:30)
[2017-06-26 06:56] LABS: BASO % 0.2 % (0-2.0); EOS % 2.6 % (0-4.5); HEMATOCRIT 33.4 % (32.4-45.2); HEMOGLOBIN 10.8 GM/dL (10.7-15.3); LYMPH % 11.9 % (8-40); MCH 26.5 pg (25.7-33.7); MCHC 32.4 g/dl (32.0-36.0); MEAN CELL VOLUME 81.8 fl (80-96); MEAN PLT VOLUME 7.3 fl (7.5-11.1); MONO % 10.3 % (3.8-10.2); PLATELET COUNT 246 K/MM3 (134-434); RBC 4.08 M/mm3 (3.60-5.2); RDW 20.5 % (11.6-15.6); WHITE BLOOD COUNT 7.6 K/mm3 (4.0-10.0)
[2017-06-26 07:26] LABS: ALBUMIN 1.9 g/dl (3.4-5.0); ANION GAP 5 (8-16); BLOOD UREA NITROGEN 4 mg/dL (7-18); CALCIUM 8.9 mg/dL (8.5-10.1); CHLORIDE 99 mmol/L (98-107); CO2 33 mmol/L (21-32); GLUCOSE,RANDOM 106 mg/dL (74-106); POTASSIUM 3.3 mmol/L (3.5-5.1); SODIUM 137 mmol/L (136-145)
[2017-06-26 07:30] LABS: ALK PHOS 147 U/L (45-117); BILIRUBIN,TOTAL 0.6 mg/dL (0.2-1.0); CREATININE 0.5 mg/dL (0.55-1.02); SGOT/AST 51 U/L (15-37); SGPT/ALT 14 U/L (12-78); TOT PROT 7.6 g/dl (6.4-8.2)
[2017-06-26] MEDS: AMINO ACIDS/PROTEIN HYDROLYS 30 ML LIQUID.PKT PO SCH ×2 (08:07→16:53)
[2017-06-26] MEDS: ALBUTEROL SO4 0.083% IH SOL 2.5 MG/3 ML VIAL.NEB. NEB PRN (09:05)
--- NOTE | 2017-06-26 10:05 | PN ---
Progress Note, Physician Chief Complaint: Pt lying in bed,vitals stable sob present,pleural effusion present K suppliment Pul note appreciated For drainage of pleural effusion - Current Medication List Current Medications: Active Medications Albuterol Sulfate (Ventolin 0.083% Nebulizer Soln -) 1 amp NEB Q6H PRN PRN Reason: SHORT OF BREATH/WHEEZING Last Admin: 06/26/17 09:05 Dose: 1 amp Amino Acids (Prosource No Carb Liquid Pkt) 30 ml PO BID@0800,1730 [facility] Last Admin: 06/26/17 08:07 Dose: 30 ml Fentanyl (Duragesic 75mcg Patch -) 1 patch TD Q72H [facility] IV Flush (Santo-Cath Flush) 10 ml IVPUSH PRN PRN PRN Reason: WOUND CARE Dextrose/Sodium Chloride (D5-1/2ns -) 1,000 mls @ 75 mls/hr IV ASDIR [facility] Last Admin: 06/25/17 12:07 Dose: 75 mls/hr Metoclopramide HCl (Reglan -) 10 mg PO TID [facility] Last Admin: 06/26/17 06:23 Dose: 10 mg Metoprolol Succinate (Toprol Xl -) 50 mg PO HS [facility] Last Admin: 06/25/17 22:12 Dose: 50 mg Montelukast Sodium (Singulair -) 10 mg PO HS [facility] Last Admin: 06/25/17 22:12 Dose: 10 mg Morphine Sulfate (Morphine Sulfate) 4 mg IVPUSH Q6H PRN PRN Reason: PAIN LEVEL 6-10 Last Admin: 06/26/17 00:13 Dose: 4 mg Potassium Chloride (K-Dur -) 40 meq PO ONCE ONE Stop: 06/26/17 10:01 Zolpidem Tartrate (Ambien -) 5 mg PO HS PRN PRN Reason: INSOMNIA Last Admin: 06/25/17 00:05 Dose: 5 mg - Objective Vital Signs: Vital Signs Temperature 98.5 F 06/26/17 07:52 Pulse Rate 70 06/26/17 07:52 Respiratory Rate 20 06/26/17 07:55 Blood Pressure 114/59 06/26/17 07:52 O2 Sat by Pulse Oximetry (%) 98 06/26/17 07:55 Constitutional: Yes: No Distress Eyes: Yes: Conjunctiva Clear HENT: Yes: Atraumatic Neck: Yes: Supple, Rigid Cardiovascular: Yes: Regular Rate and Rhythm Respiratory: Yes: Regular, Diminished, Other (breath sounds lung base) Gastrointestinal: Yes: Normal Bowel Sounds, Soft Musculoskeletal: Yes: WNL Edema: No Peripheral Pulses WNL: Yes Neurological: Yes: WNL, Alert ...Motor Strength: WNL Psychiatric: Yes: WNL, Alert Labs: CBC, BMP 06/26/17 06:40 06/26/17 06:40 INR, PTT INR 1.47 (0.82-1.09) H D 06/24/17 12:03 Assessment/Plan SOB,pleural effusuion,abdominal pain Stage 1v vaginal cancer with lung and hepatic METS HTN Dm PLAN Continue Pain meds Nutrition consult Pulmonary f/u K suppliment For Drainage of pleural fluid By IR
[2017-06-26] MEDS ORDERED: POTASSIUM CHLORIDE TABS 20 MEQ TABLET.ER (FP) PO ONE (10:45)
--- NOTE | 2017-06-26 16:50 | PN ---
Progress Note, Physician History of Present Illness: PULMONARY ALERT,S/P PLEUR-X INSERTION,C/O R SIDED CP - Current Medication List Current Medications: Active Medications Albuterol Sulfate (Ventolin 0.083% Nebulizer Soln -) 1 amp NEB Q6H PRN PRN Reason: SHORT OF BREATH/WHEEZING Last Admin: 06/26/17 09:05 Dose: 1 amp Amino Acids (Prosource No Carb Liquid Pkt) 30 ml PO BID@0800,1730 [facility] Last Admin: 06/26/17 08:07 Dose: 30 ml Fentanyl (Duragesic 75mcg Patch -) 1 patch TD Q72H [facility] IV Flush (Santo-Cath Flush) 10 ml IVPUSH PRN PRN PRN Reason: WOUND CARE Dextrose/Sodium Chloride (D5-1/2ns -) 1,000 mls @ 75 mls/hr IV ASDIR [facility] Last Admin: 06/25/17 12:07 Dose: 75 mls/hr Ketorolac Tromethamine (Toradol Injection -) 30 mg IVPUSH Q6H PRN PRN Reason: PAIN 6-10 Stop: 07/01/17 16:30 Metoclopramide HCl (Reglan -) 10 mg PO TID [facility] Last Admin: 06/26/17 06:23 Dose: 10 mg Metoprolol Succinate (Toprol Xl -) 50 mg PO HS [facility] Last Admin: 06/25/17 22:12 Dose: 50 mg Montelukast Sodium (Singulair -) 10 mg PO HS [facility] Last Admin: 06/25/17 22:12 Dose: 10 mg Morphine Sulfate (Morphine Sulfate) 4 mg IVPUSH Q6H PRN PRN Reason: PAIN LEVEL 6-10 Last Admin: 06/26/17 00:13 Dose: 4 mg Zolpidem Tartrate (Ambien -) 5 mg PO HS PRN PRN Reason: INSOMNIA Last Admin: 06/25/17 00:05 Dose: 5 mg - Objective Vital Signs: Vital Signs Temperature 98.5 F 06/26/17 07:52 Pulse Rate 70 06/26/17 07:52 Respiratory Rate 20 06/26/17 07:55 Blood Pressure 114/59 06/26/17 07:52 O2 Sat by Pulse Oximetry (%) 98 06/26/17 07:55 Constitutional: Yes: Well Nourished, Mild Distress (SECONDARY TO PAIN) Eyes: Yes: WNL HENT: Yes: WNL Neck: Yes: WNL Cardiovascular: Yes: Regular Rate and Rhythm, S1, S2 Respiratory: Yes: Diminished Gastrointestinal: Yes: Normal Bowel Sounds, Soft Extremities: Yes: WNL Edema: No Labs: CBC, BMP 06/26/17 06:40 06/26/17 06:40 INR, PTT INR 1.47 (0.82-1.09) H D 06/24/17 12:03 Problem List - Problems (1) Metastatic adenocarcinoma Code(s): C79.9 - SECONDARY MALIGNANT NEOPLASM OF UNSPECIFIED SITE (2) Lung metastases Code(s): C78.00 - SECONDARY MALIGNANT NEOPLASM OF UNSPECIFIED LUNG Assessment/Plan Problem List - Problems (1) Pain Code(s): R52 - PAIN, UNSPECIFIED (2) Pleural effusion Code(s): J90 - PLEURAL EFFUSION, NOT ELSEWHERE CLASSIFIED (3) Hypertension Code(s): I10 - ESSENTIAL (PRIMARY) HYPERTENSION (4) Obstructive uropathy Code(s): N13.9 - OBSTRUCTIVE AND REFLUX UROPATHY, UNSPECIFIED Assessment/Plan Would monitor off ABX O2 as needed Pain control VTE prophylaxis DR GODDARD
[2017-06-26] MEDS: DEXTROSE 5%-0.45% SALINE 1,000 ML IV SCH (16:51)
[2017-06-26] MEDS: KETOROLAC TROMETHAMINE 30 MG/1 ML VIAL IVPUSH PRN ×2 (16:53→23:16)
[2017-06-26] MEDS ORDERED: FENTANYL PATCH WASTE TD PRN (17:46)
[2017-06-26] MEDS: fentaNYL 75mcg/hr PATCH.TD72 TD SCH (18:51)
[2017-06-26] MEDS: MONTELUKAST NA 10 MG TABLET PO SCH (21:30)
[2017-06-27] MEDS: DEXTROSE 5%-0.45% SALINE 1,000 ML IV SCH (06:11)
[2017-06-27] MEDS: KETOROLAC TROMETHAMINE 30 MG/1 ML VIAL IVPUSH PRN ×2 (06:14→14:29)
[2017-06-27] MEDS: METOCLOPRAMIDE HCL 10 MG TABLET (FP) PO SCH ×4 (06:23→22:03)
[2017-06-27 07:20] LABS: BASO % 0.6 % (0-2.0); EOS % 3.7 % (0-4.5); HEMATOCRIT 31.7 % (32.4-45.2); HEMOGLOBIN 10.4 GM/dL (10.7-15.3); LYMPH % 10.5 % (8-40); MCH 26.8 pg (25.7-33.7); MCHC 32.7 g/dl (32.0-36.0); MEAN PLT VOLUME 7.5 fl (7.5-11.1); MONO % 11.2 % (3.8-10.2); PLATELET COUNT 246 K/MM3 (134-434); RBC 3.86 M/mm3 (3.60-5.2); RDW 20.3 % (11.6-15.6); WHITE BLOOD COUNT 8.1 K/mm3 (4.0-10.0)
[2017-06-27 07:45] LABS: ALBUMIN 1.9 g/dl (3.4-5.0); ALK PHOS 143 U/L (45-117); ANION GAP 7 (8-16); BILIRUBIN,TOTAL 0.7 mg/dL (0.2-1.0); BLOOD UREA NITROGEN 8 mg/dL (7-18); CALCIUM 8.9 mg/dL (8.5-10.1); CHLORIDE 101 mmol/L (98-107); CO2 32 mmol/L (21-32); CREATININE 0.6 mg/dL (0.55-1.02); GLUCOSE,RANDOM 143 mg/dL (74-106); POTASSIUM 3.3 mmol/L (3.5-5.1); SGOT/AST 52 U/L (15-37); SGPT/ALT 16 U/L (12-78); SODIUM 140 mmol/L (136-145); TOT PROT 7.5 g/dl (6.4-8.2)
[2017-06-27] MEDS: AMINO ACIDS/PROTEIN HYDROLYS 30 ML LIQUID.PKT PO SCH ×2 (08:14→18:36)
--- NOTE | 2017-06-27 09:52 | PN ---
Progress Note, Physician Chief Complaint: Pt lying in bed,vitals stable S/p pleural catheter placement Chest xray shows pleural catheter in place,no pneumothorax K suppliment Pul note appreciated For drainage of pleural effusion - Current Medication List Current Medications: Active Medications Albuterol Sulfate (Ventolin 0.083% Nebulizer Soln -) 1 amp NEB Q6H PRN PRN Reason: SHORT OF BREATH/WHEEZING Last Admin: 06/26/17 09:05 Dose: 1 amp Amino Acids (Prosource No Carb Liquid Pkt) 30 ml PO BID@0800,1730 [facility] Last Admin: 06/27/17 08:14 Dose: 30 ml Fentanyl (Duragesic 75mcg Patch -) 1 patch TD Q48H [facility] Last Admin: 06/26/17 18:51 Dose: 1 patch IV Flush (Asnto-Cath Flush) 10 ml IVPUSH PRN PRN PRN Reason: WOUND CARE Dextrose/Sodium Chloride (D5-1/2ns -) 1,000 mls @ 75 mls/hr IV ASDIR [facility] Last Admin: 06/27/17 06:11 Dose: 75 mls/hr Ketorolac Tromethamine (Toradol Injection -) 30 mg IVPUSH Q6H PRN PRN Reason: PAIN 6-10 Stop: 07/01/17 16:30 Last Admin: 06/27/17 06:14 Dose: 30 mg Metoclopramide HCl (Reglan -) 10 mg PO TID [facility] Last Admin: 06/27/17 06:23 Dose: Not Given Metoprolol Succinate (Toprol Xl -) 50 mg PO [facility] Last Admin: 06/26/17 21:54 Dose: 50 mg Miscellaneous (Duragesic Patch Waste) 1 each TD PRN PRN PRN Reason: WASTE Last Admin: 06/26/17 18:53 Dose: 1 each Montelukast Sodium (Singulair -) 10 mg PO [facility] Last Admin: 06/26/17 21:30 Dose: 10 mg Morphine Sulfate (Morphine Sulfate) 4 mg IVPUSH Q6H PRN PRN Reason: PAIN LEVEL 6-10 Last Admin: 06/26/17 00:13 Dose: 4 mg Potassium Chloride (K-Dur -) 40 meq PO ONCE ONE Stop: 06/27/17 09:48 Zolpidem Tartrate (Ambien -) 5 mg PO HS PRN PRN Reason: INSOMNIA Last Admin: 06/25/17 00:05 Dose: 5 mg - Objective Vital Signs: Vital Signs Temperature 97.7 F 06/27/17 06:37 Pulse Rate 80 06/27/17 06:37 Respiratory Rate 19 06/27/17 06:37 Blood Pressure 130/100 06/27/17 06:37 O2 Sat by Pulse Oximetry (%) 98 06/26/17 22:00 Constitutional: Yes: No Distress Eyes: Yes: Conjunctiva Clear HENT: Yes: Atraumatic, Normocephalic Neck: Yes: Supple Cardiovascular: Yes: Regular Rate and Rhythm Respiratory: Yes: Regular, Diminished (breath sounds at rt lung base), On Nasal O2 Gastrointestinal: Yes: Normal Bowel Sounds, Soft Musculoskeletal: Yes: WNL Edema: No Peripheral Pulses WNL: Yes Neurological: Yes: WNL, Alert ...Motor Strength: WNL Psychiatric: Yes: WNL, Alert Labs: CBC, BMP 06/27/17 06:30 06/27/17 06:30 INR, PTT INR 1.47 (0.82-1.09) H D 06/24/17 12:03 - ....Imaging Chest X-ray: Report Reviewed Assessment/Plan SOB,pleural effusuion,abdominal pain S/p pleural catheter placement 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
[2017-06-27] MEDS ORDERED: fentaNYL 75mcg/hr PATCH.TD72 TD SCH (10:00)
[2017-06-27] MEDS ORDERED: POTASSIUM CHLORIDE TABS 20 MEQ TABLET.ER (FP) PO ONE (10:00)
--- NOTE | 2017-06-27 12:13 | PN ---
Progress Note (short form) - Note Progress Note: Significant pain during thoracetesis yesterday. Reported 500cc of bloody drainage obtained. Reports breathing feels OK today. Constitutional: Yes: No Distress Eyes: Yes: Conjunctiva Clear, EOM Intact HENT: Yes: Atraumatic, Normocephalic Neck: Yes: Supple, Trachea Midline Cardiovascular: Yes: Regular Rate and Rhythm Respiratory: Yes: Cough, Diminished, Dullness, On Nasal O2, Rhonchi, SOB. No: Accessory Muscle Use, Rales, Stridor, Wheezes ...Inspection: Yes: WNL ...Clubbing: No Gastrointestinal: Yes: Normal Bowel Sounds, Soft, Abdomen, Obese. No: Pulsatile Mass Renal/: Yes: WNL Musculoskeletal: Yes: Back Pain, Muscle Pain Extremities: Yes: WNL Edema: No Peripheral Pulses WNL: Yes Integumentary: Yes: WNL Neurological: Yes: Alert, Oriented ...Motor Strength: WNL Psychiatric: Yes: WNL, Alert, Oriented Labs: Laboratory Results - last 24 hr 06/27/17 06/27/17 06:30 06:30 WBC 8.1 RBC 3.86 Hgb 10.4 L Hct 31.7 L MCV 82.0 MCH 26.8 MCHC 32.7 RDW 20.3 H Plt Count 246 MPV 7.5 Neutrophils % 74.0 Lymphocytes % 10.5 Monocytes % 11.2 H Eosinophils % 3.7 Basophils % 0.6 Sodium 140 Potassium 3.3 L Chloride 101 Carbon Dioxide 32 Anion Gap 7 L BUN 8 Creatinine 0.6 Creat Clearance w eGFR > 60 Random Glucose 143 H Calcium 8.9 Total Bilirubin 0.7 AST 52 H ALT 16 Alkaline Phosphatase 143 H Total Protein 7.5 Albumin 1.9 L Problem List - Problems (1) Pain Code(s): R52 - PAIN, UNSPECIFIED (2) Pleural effusion Code(s): J90 - PLEURAL EFFUSION, NOT ELSEWHERE CLASSIFIED (3) Hypertension Code(s): I10 - ESSENTIAL (PRIMARY) HYPERTENSION (4) Obstructive uropathy Code(s): N13.9 - OBSTRUCTIVE AND REFLUX UROPATHY, UNSPECIFIED Assessment/Plan For possible repeat thoracentesis tomorrow Monitor off ABX O2 as needed Pain control VTE prophylaxis Should pre-medicate tomorrow before repeat thoracentesis Dr Yeyo Problem List - Problems (1) Pain Code(s): R52 - PAIN, UNSPECIFIED (2) Pleural effusion Code(s): J90 - PLEURAL EFFUSION, NOT ELSEWHERE CLASSIFIED (3) Hypertension Code(s): I10 - ESSENTIAL (PRIMARY) HYPERTENSION (4) Obstructive uropathy Code(s): N13.9 - OBSTRUCTIVE AND REFLUX UROPATHY, UNSPECIFIED
[2017-06-27] MEDS ORDERED: PT OWN MED DRAWER 7, Y5N ONE (21:36)
[2017-06-27] MEDS: MONTELUKAST NA 10 MG TABLET PO SCH (21:48)
[2017-06-27] MEDS: BACITRACIN 15 GM TUBE TOPICAL OINTMENT TP SCH (21:49)
[2017-06-27] MEDS: morphine SULFATE 4 MG/ML VIAL IVPUSH PRN ×2 (21:50→23:15)
[2017-06-28] MEDS: KETOROLAC TROMETHAMINE 30 MG/1 ML VIAL IVPUSH PRN ×3 (00:14→22:23)
[2017-06-28] MEDS: METOCLOPRAMIDE HCL 10 MG TABLET (FP) PO SCH ×3 (05:58→22:20)
[2017-06-28] MEDS: DEXTROSE 5%-0.45% SALINE 1,000 ML IV SCH ×3 (06:28→22:45)
[2017-06-28] MEDS: AMINO ACIDS/PROTEIN HYDROLYS 30 ML LIQUID.PKT PO SCH ×2 (07:54→17:12)
[2017-06-28 08:23] LABS: BASO % 0.5 % (0-2.0); HEMATOCRIT 34.6 % (32.4-45.2); LYMPH % 12.1 % (8-40); MCH 26.3 pg (25.7-33.7); MCHC 31.8 g/dl (32.0-36.0); MEAN CELL VOLUME 82.9 fl (80-96); MEAN PLT VOLUME 7.6 fl (7.5-11.1); MONO % 10.1 % (3.8-10.2); NEUT % 73.3 % (42.8-82.8); PLATELET COUNT 281 K/MM3 (134-434); RBC 4.18 M/mm3 (3.60-5.2); RDW 20.4 % (11.6-15.6); WHITE BLOOD COUNT 7.9 K/mm3 (4.0-10.0)
[2017-06-28 08:26] LABS: ANION GAP 4 (8-16); BLOOD UREA NITROGEN 7 mg/dL (7-18); CALCIUM 9.2 mg/dL (8.5-10.1); CHLORIDE 101 mmol/L (98-107); CO2 33 mmol/L (21-32); CREATININE 0.5 mg/dL (0.55-1.02); GLUCOSE,RANDOM 122 mg/dL (74-106); POTASSIUM 3.8 mmol/L (3.5-5.1); SGOT/AST 54 U/L (15-37); SGPT/ALT 17 U/L (12-78); SODIUM 138 mmol/L (136-145)
[2017-06-28 08:28] LABS: ALK PHOS 158 U/L (45-117); BILIRUBIN,TOTAL 0.6 mg/dL (0.2-1.0); TOT PROT 7.8 g/dl (6.4-8.2)
[2017-06-28] MEDS: BACITRACIN 15 GM TUBE TOPICAL OINTMENT TP SCH ×2 (09:26→22:22)
[2017-06-28] MEDS: SENNOSIDES 8.6MG TABLET (FP) PO SCH (09:26)
--- NOTE | 2017-06-28 10:09 | PN ---
Progress Note, Physician Chief Complaint: Pt lying in bed,vitals stable sob improved,possible thoracocentesis today Pul note appreciated - Current Medication List Current Medications: Active Medications Albuterol Sulfate (Ventolin 0.083% Nebulizer Soln -) 1 amp NEB Q6H PRN PRN Reason: SHORT OF BREATH/WHEEZING Last Admin: 06/26/17 09:05 Dose: 1 amp Amino Acids (Prosource No Carb Liquid Pkt) 30 ml PO BID@0800,1730 [facility] Last Admin: 06/28/17 07:54 Dose: 30 ml Bacitracin (Bacitracin -) 1 applic TP BID [facility] Last Admin: 06/28/17 09:26 Dose: 1 applic Fentanyl (Duragesic 75mcg Patch -) 1 patch TD Q48H [facility] Last Admin: 06/26/17 18:51 Dose: 1 patch IV Flush (Santo-Cath Flush) 10 ml IVPUSH PRN PRN PRN Reason: WOUND CARE Dextrose/Sodium Chloride (D5-1/2ns -) 1,000 mls @ 75 mls/hr IV ASDIR [facility] Last Admin: 06/28/17 06:28 Dose: 75 mls/hr Ketorolac Tromethamine (Toradol Injection -) 30 mg IVPUSH Q6H PRN PRN Reason: PAIN 6-10 Stop: 07/01/17 16:30 Last Admin: 06/28/17 07:32 Dose: 30 mg Metoclopramide HCl (Reglan -) 10 mg PO TID [facility] Last Admin: 06/28/17 05:58 Dose: Not Given Metoprolol Succinate (Toprol Xl -) [address] [facility] Last Admin: 06/27/17 21:48 Dose: 50 mg Miscellaneous (Duragesic Patch Waste) 1 each TD PRN PRN PRN Reason: WASTE Last Admin: 06/26/17 18:53 Dose: 1 each Montelukast Sodium (Singulair -) [address] [facility] Last Admin: 06/27/17 21:48 Dose: 10 mg Senna (Senna -) 2 tab PO DAILY [facility] Last Admin: 06/28/17 09:26 Dose: Not Given - Objective Vital Signs: Vital Signs Temperature 98.2 F 06/28/17 08:00 Pulse Rate 93 H 06/28/17 08:00 Respiratory Rate 18 06/28/17 08:00 Blood Pressure 146/79 06/28/17 08:00 O2 Sat by Pulse Oximetry (%) 97 06/28/17 09:00 Constitutional: Yes: No Distress Eyes: Yes: Conjunctiva Clear HENT: Yes: Atraumatic, Normocephalic Neck: Yes: Supple, Trachea Midline Cardiovascular: Yes: Regular Rate and Rhythm Respiratory: Yes: Regular, Diminished (breath sounds rt lung base), On Nasal O2 Gastrointestinal: Yes: WNL, Normal Bowel Sounds Extremities: Yes: WNL Edema: No Peripheral Pulses WNL: Yes Wound/Incision: Yes: Dressing Dry and Intact Neurological: Yes: WNL, Alert ...Motor Strength: WNL Psychiatric: Yes: WNL, Alert, Oriented Labs: CBC, BMP 06/28/17 07:44 06/28/17 07:44 INR, PTT INR 1.47 (0.82-1.09) H D 06/24/17 12:03 Assessment/Plan SOB,pleural effusuion,abdominal pain 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
[2017-06-28] MEDS: fentaNYL 75mcg/hr PATCH.TD72 TD SCH (18:43)
[2017-06-28] MEDS: MONTELUKAST NA 10 MG TABLET PO SCH (22:21)
[2017-06-29] MEDS: METOCLOPRAMIDE HCL 10 MG TABLET (FP) PO SCH ×4 (00:05→21:59)
[2017-06-29 07:57] LABS: BASO % 0.6 % (0-2.0); EOS % 2.9 % (0-4.5); HEMATOCRIT 34.7 % (32.4-45.2); HEMOGLOBIN 11.2 GM/dL (10.7-15.3); LYMPH % 15.5 % (8-40); MCH 26.7 pg (25.7-33.7); MCHC 32.4 g/dl (32.0-36.0); MEAN CELL VOLUME 82.4 fl (80-96); MEAN PLT VOLUME 7.5 fl (7.5-11.1); MONO % 12.9 % (3.8-10.2); NEUT % 68.1 % (42.8-82.8); PLATELET COUNT 286 K/MM3 (134-434); RBC 4.21 M/mm3 (3.60-5.2); RDW 20.8 % (11.6-15.6); WHITE BLOOD COUNT 7.8 K/mm3 (4.0-10.0)
[2017-06-29 08:28] LABS: ALK PHOS 159 U/L (45-117); ANION GAP 4 (8-16); BILIRUBIN,TOTAL 0.7 mg/dL (0.2-1.0); BLOOD UREA NITROGEN 6 mg/dL (7-18); CALCIUM 9.1 mg/dL (8.5-10.1); CHLORIDE 100 mmol/L (98-107); CO2 33 mmol/L (21-32); CREATININE 0.5 mg/dL (0.55-1.02); GLUCOSE,RANDOM 116 mg/dL (74-106); POTASSIUM 3.4 mmol/L (3.5-5.1); SGOT/AST 63 U/L (15-37); SGPT/ALT 19 U/L (12-78); SODIUM 137 mmol/L (136-145); TOT PROT 7.9 g/dl (6.4-8.2)
--- NOTE | 2017-06-29 09:12 | PN ---
Progress Note, Physician Chief Complaint: Pt lying in bed,vitals stable sob improved,ds/p thoracocentesis yesterday and drained 100 cc of fluid Pul note appreciated - Current Medication List Current Medications: Active Medications Albuterol Sulfate (Ventolin 0.083% Nebulizer Soln -) 1 amp NEB Q6H PRN PRN Reason: SHORT OF BREATH/WHEEZING Last Admin: 06/26/17 09:05 Dose: 1 amp Amino Acids (Prosource No Carb Liquid Pkt) 30 ml PO BID@0800,1730 [facility] Last Admin: 06/28/17 17:12 Dose: 30 ml Bacitracin (Bacitracin -) 1 applic TP BID [facility] Last Admin: 06/28/17 22:22 Dose: 1 applic Fentanyl (Duragesic 75mcg Patch -) 1 patch TD Q48H [facility] Last Admin: 06/28/17 18:43 Dose: 1 patch IV Flush (Santo-Cath Flush) 10 ml IVPUSH PRN PRN PRN Reason: WOUND CARE Dextrose/Sodium Chloride (D5-1/2ns -) 1,000 mls @ 75 mls/hr IV ASDIR [facility] Last Admin: 06/28/17 22:45 Dose: 75 mls/hr Ketorolac Tromethamine (Toradol Injection -) 30 mg IVPUSH Q6H PRN PRN Reason: PAIN 6-10 Stop: 07/01/17 16:30 Last Admin: 06/28/17 22:23 Dose: 30 mg Metoclopramide HCl (Reglan -) 10 mg PO TID [facility] Last Admin: 06/29/17 06:15 Dose: 10 mg Metoprolol Succinate (Toprol Xl -) 50 mg PO [facility] Last Admin: 06/28/17 22:21 Dose: 50 mg Miscellaneous (Duragesic Patch Waste) 1 each TD PRN PRN PRN Reason: WASTE Last Admin: 06/26/17 18:53 Dose: 1 each Montelukast Sodium (Singulair -) 10 mg PO [facility] Last Admin: 06/28/17 22:21 Dose: 10 mg Senna (Senna -) 2 tab PO DAILY [facility] Last Admin: 06/28/17 09:26 Dose: Not Given - Objective Vital Signs: Vital Signs Temperature 98.2 F 06/29/17 06:09 Pulse Rate 92 H 06/29/17 06:09 Respiratory Rate 20 06/29/17 06:09 Blood Pressure 109/80 06/29/17 06:09 O2 Sat by Pulse Oximetry (%) 98 06/28/17 22:00 Constitutional: Yes: No Distress Eyes: Yes: Conjunctiva Clear HENT: Yes: Atraumatic Neck: Yes: Supple, Trachea Midline Cardiovascular: Yes: Regular Rate and Rhythm Respiratory: Yes: Regular, CTA Bilaterally Gastrointestinal: Yes: Normal Bowel Sounds Musculoskeletal: Yes: WNL Extremities: Yes: WNL Edema: No Peripheral Pulses WNL: Yes Neurological: Yes: WNL, Alert ...Motor Strength: WNL Psychiatric: Yes: WNL Labs: CBC, BMP 06/29/17 07:28 06/29/17 07:28 INR, PTT INR 1.47 (0.82-1.09) H D 06/24/17 12:03 Assessment/Plan SOB,pleural effusuion,abdominal pain 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
[2017-06-29] MEDS: BACITRACIN 15 GM TUBE TOPICAL OINTMENT TP SCH ×2 (10:13→21:59)
[2017-06-29] MEDS: AMINO ACIDS/PROTEIN HYDROLYS 30 ML LIQUID.PKT PO SCH ×2 (10:13→17:26)
[2017-06-29] MEDS: SENNOSIDES 8.6MG TABLET (FP) PO SCH (10:14)
[2017-06-29] MEDS: DEXTROSE 5%-0.45% SALINE 1,000 ML IV SCH ×2 (11:49→13:00)
--- NOTE | 2017-06-29 12:45 | PN ---
Progress Note (short form) - Note Progress Note: PULMONARY Denies shortness of breath, mild chest pain. No discomfort at pleur-x site. Last Vital Signs Temp Pulse Resp BP Pulse Ox 98.2 F 92 H 20 109/80 98 06/29/17 06:09 06/29/17 06:09 06/29/17 06:09 06/29/17 06:09 06/28/17 22:00 Gen: NAD at rest Heart: RRR Lung: decreased breath sounds right base Abd: soft, nontender Ext: no edema CBC, BMP 06/29/17 07:28 06/29/17 07:28 Active Medications Albuterol Sulfate (Ventolin 0.083% Nebulizer Soln -) 1 amp NEB Q6H PRN PRN Reason: SHORT OF BREATH/WHEEZING Last Admin: 06/26/17 09:05 Dose: 1 amp Amino Acids (Prosource No Carb Liquid Pkt) 30 ml PO BID@0800,1730 [facility] Last Admin: 06/29/17 10:13 Dose: 30 ml Bacitracin (Bacitracin -) 1 applic TP BID [facility] Last Admin: 06/29/17 10:13 Dose: 1 applic Fentanyl (Duragesic 75mcg Patch -) 1 patch TD Q48H [facility] Last Admin: 06/28/17 18:43 Dose: 1 patch IV Flush (Santo-Cath Flush) 10 ml IVPUSH PRN PRN PRN Reason: WOUND CARE Dextrose/Sodium Chloride (D5-1/2ns -) 1,000 mls @ 75 mls/hr IV ASDIR [facility] Last Admin: 06/29/17 11:49 Dose: Not Given Ketorolac Tromethamine (Toradol Injection -) 30 mg IVPUSH Q6H PRN PRN Reason: PAIN 6-10 Stop: 07/01/17 16:30 Last Admin: 06/28/17 22:23 Dose: 30 mg Metoclopramide HCl (Reglan -) 10 mg PO TID [facility] Last Admin: 06/29/17 06:15 Dose: 10 mg Metoprolol Succinate (Toprol Xl -) 50 mg PO HS [facility] Last Admin: 06/28/17 22:21 Dose: 50 mg Miscellaneous (Duragesic Patch Waste) 1 each TD PRN PRN PRN Reason: WASTE Last Admin: 06/26/17 18:53 Dose: 1 each Montelukast Sodium (Singulair -) 10 mg PO HS [facility] Last Admin: 06/28/17 22:21 Dose: 10 mg Senna (Senna -) 2 tab PO DAILY [facility] Last Admin: 06/29/17 10:14 Dose: Not Given A/P Metastatic Vaginal Ca Lung Mets Pleural Effusion s/p pleur-x placement HTN - pain control - pleur-x drainage weekly - check ambulatory Spo2 on room air to assess for home O2
[2017-06-29] MEDS ORDERED: ONDANSETRON 4 MG/2 ML VIAL IVPUSH PRN (12:46)
--- NOTE | 2017-06-29 17:39 | CON.GI ---
Consult Consult Specialty:: GI Reason for Consultation:: vomiting dark material, ?GI bleeding - History of Present Illness History of Present Illness: Weekend coverage for Dr. Richter Chart reviewed. Events noted. A 61F with extensive metastatic to lungs and liver vaginal cancer who had an episode of coffee-ground emesis yesterday upon retiring to the floor after an aborted, due to chest pain, thoracentesis. This am she also had an episode of vomiting and nausea. She tolerated her diet well however. No changes in hemodynamics. No fever, chills, hematemesis, or hematochezia. She has soft, brown stool in ileostomy bag this morning. Her Hgb level has not changed down. BUN normal. Despite the underlying, advanced metastatic disease she appears quite comfortable this am. No pain, nausea, or vomiting. Ambulating with her son up and down the castillo. On Duragesic patch, stool softeners, antiemetic, NSAIDs, and PPI. Son, at bedside, provided some of the history - History Source History Provided By: Patient, Family Member, Medical Record - Past Medical History Cardio/Vascular: Yes: HTN - Alcohol/Substance Use Hx Alcohol Use: No - Smoking History Smoking history: Never smoked Have you smoked in the past 12 months: No Aproximately how many cigarettes per day: 0 - Social History Usual Living Arrangement: Other (With family) Home Medications - Allergies Allergies/Adverse Reactions: Allergies Allergy/AdvReac Type Severity Reaction Status Date / Time aspirin Allergy Mild Rash Verified 06/24/17 09:12 ciprofloxacin Allergy Mild Rash Verified 06/24/17 09:12 - Home Medications Home Medications: Ambulatory Orders Albuterol Sulfate 0.3 PRN 06/24/17 Ambien 5 mg PO HS 06/24/17 Fentanyl 75 mcg TD ASDIR 06/24/17 Glipizide 5 mg PO HS 06/24/17 Metoprolol Suazo/Hydrochlorothiaz 50 mg PO HS 06/24/17 Singulair 10 mg PO DAILY 06/24/17 Tramadol HCl 50 mg As directed PRN 06/24/17 Family Disease History - Family Disease History Family History: Unremarkable Review of Systems Findings/Remarks: as per HPI Physical Exam-GI Vital Signs: Vital Signs Temperature 98.3 F 06/29/17 08:00 Pulse Rate 113 H 06/29/17 15:05 Respiratory Rate 20 06/29/17 08:00 Blood Pressure 118/66 06/29/17 08:00 O2 Sat by Pulse Oximetry (%) 93 L 06/29/17 15:05 Constitutional: Yes: No Distress, Calm Eyes: Yes: Conjunctiva Clear HENT: Yes: Atraumatic Neck: Yes: Supple Respiratory: Yes: Regular Gastrointestinal Inspection: No: Ascites, Distention ...Auscultate: Yes: Normoactive Bowel Sounds ...Palpate: Yes: Soft. No: Firm/Rigid, Guarding, Tenderness, Tenderness, Epigastium, Tenderness, Rebound Edema: No Neurological: Yes: Alert, Oriented Labs: CBC, BMP 06/29/17 07:28 06/29/17 07:28 INR, PTT INR 1.47 (0.82-1.09) H D 06/24/17 12:03 CBCD WBC 7.8 K/mm3 (4.0-10.0) 06/29/17 07:28 RBC 4.21 M/mm3 (3.60-5.2) 06/29/17 07:28 Hgb 11.2 GM/dL (10.7-15.3) 06/29/17 07:28 Hct 34.7 % (32.4-45.2) 06/29/17 07:28 MCV 82.4 fl (80-96) 06/29/17 07:28 MCHC 32.4 g/dl (32.0-36.0) 06/29/17 07:28 RDW 20.8 % (11.6-15.6) H 06/29/17 07:28 Plt Count 286 K/MM3 (134-434) 06/29/17 07:28 MPV 7.5 fl (7.5-11.1) 06/29/17 07:28 CMP Sodium 137 mmol/L (136-145) 06/29/17 07:28 Potassium 3.4 mmol/L (3.5-5.1) L 06/29/17 07:28 Chloride 100 mmol/L (98-107) 06/29/17 07:28 Carbon Dioxide 33 mmol/L (21-32) H 06/29/17 07:28 Anion Gap 4 (8-16) L 06/29/17 07:28 BUN 6 mg/dL (7-18) L 06/29/17 07:28 Creatinine 0.5 mg/dL (0.55-1.02) L 06/29/17 07:28 Creat Clearance w eGFR > 60 (>60) 06/29/17 07:28 Calcium 9.1 mg/dL (8.5-10.1) 06/29/17 07:28 Total Bilirubin 0.7 mg/dL (0.2-1.0) 06/29/17 07:28 AST 63 U/L (15-37) H 06/29/17 07:28 ALT 19 U/L (12-78) 06/29/17 07:28 Alkaline Phosphatase 159 U/L (45-117) H 06/29/17 07:28 Total Protein 7.9 g/dl (6.4-8.2) 06/29/17 07:28 Albumin 2.0 g/dl (3.4-5.0) L 06/29/17 07:28 Imaging - Results Cat Scan: Report Reviewed (chest, abdomen, pelvis) Problem List - Problems (1) Metastatic adenocarcinoma Code(s): C79.9 - SECONDARY MALIGNANT NEOPLASM OF UNSPECIFIED SITE (2) Vomiting Code(s): R11.10 - VOMITING, UNSPECIFIED Assessment/Plan A 61F with terminal metastatic disease. Tolerating diet. Not in distress. Intermittent nausea and vomiting, without overt GI bleeding, or bowel obstruction, is likely due to the underlying malignancy. Agree with Zofran, Reglan, PPI, stool softeners and pain management. Conservative management from GI perspective for now. Will monitor. Discussed with the patient and her son. Weekend coverage for Dr. Richter.
[2017-06-29] MEDS: KETOROLAC TROMETHAMINE 30 MG/1 ML VIAL IVPUSH PRN (21:59)
[2017-06-29] MEDS: MONTELUKAST NA 10 MG TABLET PO SCH (21:59)
[2017-06-30] MEDS: METOCLOPRAMIDE HCL 10 MG TABLET (FP) PO SCH ×2 (05:54→13:32)
[2017-06-30] MEDS ORDERED: PANTOPRAZOLE SODIUM 40 MG VIAL IVPB SCH (10:00)
[2017-06-30] MEDS: AMINO ACIDS/PROTEIN HYDROLYS 30 ML LIQUID.PKT PO SCH (10:07)
[2017-06-30] MEDS: SENNOSIDES 8.6MG TABLET (FP) PO SCH (10:07)
[2017-06-30] MEDS: BACITRACIN 15 GM TUBE TOPICAL OINTMENT TP SCH (10:07)
[2017-06-30] MEDS: DEXTROSE 5%-0.45% SALINE 1,000 ML IV SCH (10:08)
[2017-06-30] MEDS: KETOROLAC TROMETHAMINE 30 MG/1 ML VIAL IVPUSH PRN (10:26)
--- NOTE | 2017-06-30 12:00 | PN ---
Progress Note, Physician Chief Complaint: Pt lying in bed,vitals stable Pt had one episode of coffe ground vomitus yesterday,no episodes after that GI cosult appreciated. pt is comfortable tolerating feeds 02 saturation 98% ,so not Qualified for home 02 D/c home on pain meds f/u with pain management - Current Medication List Current Medications: Active Medications Amino Acids (Prosource No Carb Liquid Pkt) 30 ml PO BID@0800,1730 [facility] Last Admin: 06/30/17 10:07 Dose: Not Given Bacitracin (Bacitracin -) 1 applic TP BID [facility] Last Admin: 06/30/17 10:07 Dose: 1 applic Fentanyl (Duragesic 75mcg Patch -) 1 patch TD Q48H [facility] Last Admin: 06/28/17 18:43 Dose: 1 patch IV Flush (Santo-Cath Flush) 10 ml IVPUSH PRN PRN PRN Reason: WOUND CARE Dextrose/Sodium Chloride (D5-1/2ns -) 1,000 mls @ 75 mls/hr IV ASDIR [facility] Last Admin: 06/30/17 10:08 Dose: Not Given Ketorolac Tromethamine (Toradol Injection -) 30 mg IVPUSH Q6H PRN PRN Reason: PAIN 6-10 Stop: 07/01/17 16:30 Last Admin: 06/30/17 10:26 Dose: 30 mg Metoclopramide HCl (Reglan -) 10 mg PO TID [facility] Last Admin: 06/30/17 05:54 Dose: 10 mg Metoprolol Succinate (Toprol Xl -) 50 mg PO [facility] Last Admin: 06/29/17 21:59 Dose: 50 mg Miscellaneous (Duragesic Patch Waste) 1 each TD PRN PRN PRN Reason: WASTE Last Admin: 06/26/17 18:53 Dose: 1 each Montelukast Sodium (Singulair -) 10 mg PO [facility] Last Admin: 06/29/17 21:59 Dose: 10 mg Ondansetron HCl (Zofran Injection) 4 mg IVPUSH Q6H PRN PRN Reason: NAUSEA AND/OR VOMITING Last Admin: 06/29/17 12:56 Dose: 4 mg Pantoprazole Sodium (Protonix Iv) 40 mg IVPB DAILY [facility] Last Admin: 06/30/17 10:07 Dose: 40 mg Senna (Senna -) 2 tab PO DAILY [facility] Last Admin: 06/30/17 10:07 Dose: Not Given - Objective Vital Signs: Vital Signs Temperature 97.8 F 06/30/17 05:52 Pulse Rate 77 06/30/17 05:52 Respiratory Rate 18 06/30/17 05:52 Blood Pressure 115/73 06/30/17 05:52 O2 Sat by Pulse Oximetry (%) 98 06/29/17 23:43 Constitutional: Yes: No Distress Eyes: Yes: Conjunctiva Clear HENT: Yes: Atraumatic Neck: Yes: Supple Cardiovascular: Yes: Regular Rate and Rhythm Respiratory: Yes: Regular, Diminished (breath sounds at rt lung base) Gastrointestinal: Yes: Normal Bowel Sounds, Soft Extremities: Yes: WNL Peripheral Pulses WNL: Yes Wound/Incision: Yes: Other (Pleural catheter site clean and dry) Neurological: Yes: Alert, Oriented ...Motor Strength: WNL Psychiatric: Yes: WNL, Alert Labs: CBC, BMP 06/29/17 07:28 06/29/17 07:28 INR, PTT INR 1.47 (0.82-1.09) H D 06/24/17 12:03 Assessment/Plan SOB,pleural effusuion s/p plueral catheter placement 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
--- NOTE | 2017-06-30 12:05 | PN ---
Progress Note (short form) - Note Progress Note: PULMONARY Ambulated with RT yesterday, SpO2 normal with exertion. Denies shortness of breath, mild chest pain. No discomfort at pleur-x site. Last Vital Signs Temp Pulse Resp BP Pulse Ox 97.8 F 77 18 115/73 98 06/30/17 05:52 06/30/17 05:52 06/30/17 05:52 06/30/17 05:52 06/29/17 23:43 Gen: NAD at rest Heart: RRR Lung: decreased breath sounds right base Abd: soft, nontender Ext: no edema CBC, BMP 06/29/17 07:28 06/29/17 07:28 Active Medications Amino Acids (Prosource No Carb Liquid Pkt) 30 ml PO BID@0800,1730 [facility] Last Admin: 06/30/17 10:07 Dose: Not Given Bacitracin (Bacitracin -) 1 applic TP BID [facility] Last Admin: 06/30/17 10:07 Dose: 1 applic Fentanyl (Duragesic 75mcg Patch -) 1 patch TD Q48H [facility] Last Admin: 06/28/17 18:43 Dose: 1 patch IV Flush (Santo-Cath Flush) 10 ml IVPUSH PRN PRN PRN Reason: WOUND CARE Dextrose/Sodium Chloride (D5-1/2ns -) 1,000 mls @ 75 mls/hr IV ASDIR [facility] Last Admin: 06/30/17 10:08 Dose: Not Given Ketorolac Tromethamine (Toradol Injection -) 30 mg IVPUSH Q6H PRN PRN Reason: PAIN 6-10 Stop: 07/01/17 16:30 Last Admin: 06/30/17 10:26 Dose: 30 mg Metoclopramide HCl (Reglan -) 10 mg PO TID [facility] Last Admin: 06/30/17 05:54 Dose: 10 mg Metoprolol Succinate (Toprol Xl -) 50 mg PO [facility] Last Admin: 06/29/17 21:59 Dose: 50 mg Miscellaneous (Duragesic Patch Waste) 1 each TD PRN PRN PRN Reason: WASTE Last Admin: 06/26/17 18:53 Dose: 1 each Montelukast Sodium (Singulair -) 10 mg PO [facility] Last Admin: 06/29/17 21:59 Dose: 10 mg Ondansetron HCl (Zofran Injection) 4 mg IVPUSH Q6H PRN PRN Reason: NAUSEA AND/OR VOMITING Last Admin: 06/29/17 12:56 Dose: 4 mg Pantoprazole Sodium (Protonix Iv) 40 mg IVPB DAILY [facility] Last Admin: 06/30/17 10:07 Dose: 40 mg Senna (Senna -) 2 tab PO DAILY [facility] Last Admin: 06/30/17 10:07 Dose: Not Given A/P Metastatic Vaginal Ca Lung Mets Pleural Effusion s/p pleur-x placement HTN - pain control - repeat CT chest as outpt - DVT prophylaxis
[2017-06-30] MEDS ORDERED: KCL 10 MEQ IVPB 10 MEQ/100 ML INFUS.BAG IVPB ONE (12:15)
[2017-06-30] MEDS ORDERED: POTASSIUM CHLORIDE 10 MEQ in SODIUM CHLORIDE 100 ML IVPB ONE (12:46)
[2017-06-30 13:09] VITALS: BP 118/74; PULSE 83; TEMP 98
--- NOTE | 2017-07-01 15:22 | PATH ---
Cytology Non-Gynecological Report Patient Name: VAZQUEZ WEAVER [facility]. Rec. #: [id number] /Age/Gender: 1955 (Age: 61) / F Account: [id number] Location: [address] [place] [address] Taken: 06/27/2017 Received: 06/28/2017 Reported: 07/01/2017 Physicians: Erick Ribera Specimen(s) Received PLEURAL FLUID Clinical History None given Final Diagnosis PLEURAL FLUID, THORACENTESIS: SATISFACTORY FOR EVALUATION RARE ATYPICAL CELLS PRESENT MESOTHELIAL CELLS, NEUTROPHILS AND LYMPHOCYTES PRESENT. Comment: Rare atypical cells of undetermined significance are identified. However, there are too few cells for further analysis. Recommend correlation with clinical findings and follow up as clinically indicated. Electronically Signed Jett Huston M.D. Gross Description Approximately 30 cc of bloody fluid received fixed in 50% alcohol. Two cytofunnels and one cellblock prepared.
--- NOTE | 2017-07-03 13:32 | DS ---
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 The patient was getting treatment from [email or web address] She got the last chemotherapy in April and stopped the treatment because of the worsening of symptoms and there was no improvement. Patient was on hospice but the hospice discontinued since 2 weeks. So, patient came to the ER for right upper quadrant pain and shortness of breath, mild nausea present, mild vomiting present. In the emergency room, vitals were stable. Patient was afebrile. At the time of admission, the labs were hemoglobin 10.4, hematocrit 31.8, white count 9.5, platelets 243. INR was 1.47, PT was 16.6, PTT was normal. hypokalemia. Potassium 2.9. Rest of the CMP was normal. AST 46, ALT 17, alkaline phosphatase 136, lipase 151. Urine shows WBC 10-20 and leukocyte esterase present. Lactic acid was 1.1. EKG showed normal sinus rhythm, right bundle branch block, 76 per minute, T-wave of %. Chest x-ray shows right pleural effusion with some basilar atelectasis or infiltrate and nodular density in the right upper lobe. Left lung is clear with enlarged heart. Bones and soft tissues are intact. CT of the abdomen and pelvis done in the ER with no evidence of PE, large right pleural effusion with extensive atelectasis of the right middle lobe and lower lobe, multiple bilateral pulmonary masses consistent with metastatic disease, multiple liver lesions consistent with metastatic disease, bilateral ureteral stents with mild residual hydronephrosis, status post left lower quadrant colostomy, hysterectomy with no additional evidence of metastatic disease in the pelvis. Patient was admitted on the floor with admitting diagnosis of shortness of breath and pleural effusion, metastatic vaginal cancer. Treated with pain medication and other conservative measures. Potassium replaced. Pleural effusion drainage done by the interventional radiologist through the . Initially, 500 mL of blood-stained fluid drained and patient observed. A second was done after 4 days and drained 100 mL of fluid. The patient was complaining of severe pain during the procedure so a second attempt aborted. The pain was controlled with the pain medications. Patient throughout the hospitalization afebrile and hemodynamically stable. Patient discharged home on home medications and pain medication. The pleural catheter site was sealed. Discharged home in stable condition. Recommended to come to the ER after 1 week for elective procedure of draining of the pleural fluid if there is any. Other additional measures educated. Recommend to see primary in 2 weeks. Erick [id number]
== END 2017-06-30 15:14 | disposition home or self-care (01) | DRG 181 ==
LOC: JER 09:07 → JERBED 13:43 → J4W 21:13 → J6S 06-26 10:25
PROVIDERS: ADMIT Family Medicine; ATTEND Family Medicine
PROC: 0JH63XZ Insertion of Tunneled Vascular Access Device into Chest Subcutaneous Tissue and Fascia, Percutaneous Approach (ICD-10-PCS; 2017-06-26)
PROC: 02HV33Z Insertion of Infusion Device into Superior Vena Cava, Percutaneous Approach (ICD-10-PCS; 2017-06-26)
PROC: B548ZZA Ultrasonography of Superior Vena Cava, Guidance (ICD-10-PCS; 2017-06-26)
PROC: 0W9930Z Drainage of Right Pleural Cavity with Drainage Device, Percutaneous Approach (ICD-10-PCS; principal; 2017-06-28)
DX: C78.00 Secondary malignant neoplasm of unspecified lung (principal); C78.7 Secondary malignant neoplasm of liver and intrahepatic bile duct; J90 Pleural effusion, not elsewhere classified; C52 Malignant neoplasm of vagina; I10 Essential (primary) hypertension; E11.9 Type 2 diabetes mellitus without complications; N13.9 Obstructive and reflux uropathy, unspecified; E87.6 Hypokalemia; E86.0 Dehydration
CPT/HCPCS: 32550; 32555; 36415; 71045-TC-FY; 71046-TC-FY; 71275-TC; 74177-TC; 76098-TC-FY; 76998-TC; 80053; 81003; 81015; 82550; 82962; 83036; 83605; 83690; 83735; 84484; 85025; 85610; 85730; 87070; 87075; 87102; 87116; 87205; 87206; 87210; 87899; 88108; 88305-TC; 93005; 93010; 94640; 94761; 99284-25; C1729; C1769; C1894; J7030

== ENCOUNTER → 2017-07-15 | Day surgery (SDC) | payer OTHER | END | disposition home or self-care (01) | LOC: JRADIR 11:04 | PROVIDERS: ATTEND Radiology Diagnostic Radiology | PROC: 0W9930Z Drainage of Right Pleural Cavity with Drainage Device, Percutaneous Approach (ICD-10-PCS; principal; 2017-07-15) | DX: J90 Pleural effusion, not elsewhere classified (principal); C34.90 Malignant neoplasm of unspecified part of unspecified bronchus or lung | CPT/HCPCS: 32554; 71250-TC ==

== ENCOUNTER → 2017-07-19 | Day surgery (SDC) | payer OTHER | END | disposition home or self-care (01) | LOC: JRADIR 10:30 | PROVIDERS: ATTEND Radiology Diagnostic Radiology | PROC: 0BPQ00Z Removal of Drainage Device from Pleura, Open Approach (ICD-10-PCS; principal; 2017-07-19) | DX: Z46.82 Encounter for fitting and adjustment of non-vascular catheter (principal); C34.90 Malignant neoplasm of unspecified part of unspecified bronchus or lung; J90 Pleural effusion, not elsewhere classified | CPT/HCPCS: 32552; 71046-TC-FY ==

== ENCOUNTER 2017-08-03 13:11 | Inpatient (IN) | payer OTHER ==
--- NOTE | 2017-08-03 13:39 | PDOC ---
Attending Attestation - HPI HPI: 08/03/17 14:49 The patient is a 61 year old female presenting with her daughter and son, with a significant past medical history of stage IV vaginal cancer with metastases to the lungs and liver s/p chemotherapy and radiation, s/p rectovaginal, s/p bilateral nephro stenting, s/p colostomy, diabetes, and HTN, who presents to the emergency department complaining of increased confusion, unsteady gait and persistent emesis for the past few days. The family notes that the patient has been having multiple episodes of emesis almost everytime she eats or drinks, roughly 60% of the time. They report that the patient has been taking Zofran with little to know relieve of her nausea. The family states that the patient was fine 3-4 days ago, which is when they started noticing the confusion and the current symptoms. The family notes that the patients appetite has been poor and she has been having more dry mouths than usual. The family denies fever, chills, diarrhea and constipation. Allergies: ciprofloxacin, aspirin Past Surgical History: rectovaginal, bilateral nephro stenting, colostomy bag Social History: No toxic habits reported PCP: Dr. Murphy Oncologist: Dr. Levy - Physicial Exam PE: 08/03/17 14:49 GENERAL: Awake, alert, and fully oriented, in no acute distress HEAD: No signs of trauma, normocephalic, atraumatic EYES: PERRLA, EOMI, sclera anicteric, conjunctiva clear ENT: Auricles normal inspection, hearing grossly normal, nares patent, oropharynx clear without exudates. Moist mucosa NECK: Normal ROM, supple, no lymphadenopathy, JVD, or masses LUNGS: No distress, speaks full sentences, clear to auscultation bilaterally HEART: Regular rate and rhythm, normal S1 and S2, no murmurs, rubs or gallops, peripheral pulses normal and equal bilaterally. ABDOMEN: (+) Colostomy bag in place, clean, dry and intact. Soft, nontender, normoactive bowel sounds. No guarding, no rebound. No masses EXTREMITIES : Normal inspection, Normal range of motion, no edema. No clubbing or cyanosis. NEUROLOGICAL: Cranial nerves II through XII grossly intact. Normal speech, no focal sensorimotor deficits SKIN: Warm, Dry, normal turgor, no rashes or lesions noted <Lombert,Idris Estela - Last Filed: 08/03/17 14:49> - Resident Resident Name: Nicho Patton - Medical Decision Making 08/04/17 09:47 Pt presents to the ED after brought in by her family for altered mental status. History of stage IV vaginal cancer. On exam, the patient is alert but confused. Labs show hypokalemia and evidence of UTi. Initial lactate 3, improved to 2.4 after hydration, so likely secondary to dehydration. Ct head shows no evidence of intracranial lesions. Will give antibiotics and admit to medicine for UTI with altered mental status. <Marti Hoover - Last Filed: 08/04/17 09:56>
[2017-08-03] MEDS ORDERED: SODIUM CHLORIDE 0.9% 1000 ML INFUS.BAG IV ONE (15:02)
[2017-08-03 15:13] LABS: BASO % 0.5 % (0-2.0); EOS % 0.6 % (0-4.5); HEMATOCRIT 32.9 % (32.4-45.2); HEMOGLOBIN 11.2 GM/dL (10.7-15.3); LYMPH % 10.1 % (8-40); MCH 28.2 pg (25.7-33.7); MEAN CELL VOLUME 83.1 fl (80-96); MEAN PLT VOLUME 7.6 fl (7.5-11.1); MONO % 12.2 % (3.8-10.2); NEUT % 76.6 % (42.8-82.8); PLATELET COUNT 177 K/MM3 (134-434); RBC 3.96 M/mm3 (3.60-5.2); RDW 20.1 % (11.6-15.6); WHITE BLOOD COUNT 8.5 K/mm3 (4.0-10.0)
[2017-08-03 15:28] LABS: URINE APPEARANCE CLEAR; URINE BILIRUBIN NEGATIVE (<2.0 mg/dL); URINE COLOR LTYELLOW; URINE GLUCOSE (UA) NEGATIVE (NEGATIVE); URINE KETONE NEGATIVE (NEGATIVE); URINE NITRITE NEGATIVE (NEGATIVE); URINE UROBILINOGEN NEGATIVE mg/dL (0.2-1.0)
[2017-08-03 15:34] LABS: URINE LEUK ESTERASE 2+ (NEGATIVE); URINE PROTEIN 1+ (NEGATIVE)
[2017-08-03 15:35] LABS: EPI CELLS RARE /HPF (FEW)
[2017-08-03 15:40] LABS: ALBUMIN 1.7 g/dl (3.4-5.0); ANION GAP 6 (8-16); BLOOD UREA NITROGEN 5 mg/dL (7-18); CALCIUM 11.2 mg/dL (8.5-10.1); CHLORIDE 98 mmol/L (98-107); CO2 33 mmol/L (21-32); CREATININE 0.7 mg/dL (0.55-1.02); GLUCOSE,RANDOM 107 mg/dL (74-106); SGOT/AST 64 U/L (15-37); SGPT/ALT 10 U/L (12-78); SODIUM 137 mmol/L (136-145)
[2017-08-03 15:43] LABS: ALK PHOS 152 U/L (45-117); BILIRUBIN,TOTAL 0.9 mg/dL (0.2-1.0)
[2017-08-03 15:45] LABS: POTASSIUM 2.8 mmol/L (3.5-5.1)
--- NOTE | 2017-08-03 15:52 | PDOC ---
History of Present Illness - General Chief Complaint: Altered Mental Status Stated Complaint: ALTERED MENTAL STATUS Time Seen by Provider: 08/03/17 13:38 - History of Present Illness Initial Comments: 08/03/17 16:57 61M w pmh of stage IV vaginal cancer with metastases to the lungs and liver s/p chemotherapy and radiation, s/p rectovaginal, s/p bilateral nephro stenting, s/ p colostomy, diabetes, and HTN, brought in by daughter increasingly altered mental status with visual hallucinations, unsteady gait and failure to thrive. Recurrent episodes of vomiting most of the time patient tries to eat. Poor appetite and dehydration. Past History - Past Medical History Allergies/Adverse Reactions: Allergies Allergy/AdvReac Type Severity Reaction Status Date / Time aspirin Allergy Mild Rash Verified 08/03/17 13:17 ciprofloxacin Allergy Mild Rash Verified 08/03/17 13:17 Home Medications: Ambulatory Orders Fentanyl 1 each TD Q48H 08/03/17 Glipizide 5 mg PO HS 08/03/17 Montelukast Sodium [Singulair] 10 mg PO DAILY 08/03/17 Ondansetron [Zofran -] 4 mg PO TID 08/03/17 Pantoprazole Sodium 40 mg PO DAILY 08/03/17 Tramadol HCl 50 mg PO Q6H 08/03/17 Anemia: Yes Cancer: Yes (vaginal 2014 with mets to lungs and liver) COPD: No Disorders: Yes (HEMATURIA,NEPHOSTOMY TUBES JACOBO.) HTN: Yes Thyroid Disease: No - Surgical History Abdominal Surgery: Yes (colostomy) - Suicide/Smoking/Psychosocial Hx Smoking Status: No Smoking History: Never smoked Have you smoked in the past 12 months: No Number of Cigarettes Smoked Daily: 0 Hx Alcohol Use: No Drug/Substance Use Hx: No Substance Use Type: None Hx Substance Use Treatment: No Review of Systems - Review of Systems Able to Perform ROS?: No (AMS) *Physical Exam - Vital Signs Last Vital Signs Temp Pulse Resp BP Pulse Ox 98.6 F 81 18 113/64 98 08/03/17 13:15 08/03/17 13:15 08/03/17 13:15 08/03/17 13:15 08/03/17 13:15 - Physical Exam General Appearance: Yes: Appropriately Dressed, Thin. No: Apparent Distress HEENT: positive: EOMI, MARITZA Respiratory/Chest: positive: Decreased Breath Sounds. negative: Chest Tender Cardiovascular: positive: Regular Rhythm, Regular Rate, S1, S2 Gastrointestinal/Abdominal: positive: Normal Bowel Sounds, Flat, Soft. negative : Tender Extremity: positive: Pedal Edema (bilaterally) Integumentary: positive: Dry Neurologic: positive: Other (visual hallucinations, altered) ED Treatment Course - LABORATORY CBC & Chemistry Diagram: 08/03/17 14:21 08/03/17 14:21 - ADDITIONAL ORDERS Additional order review: Laboratory Results 08/03/17 08/03/17 08/03/17 15:00 14:21 14:21 Sodium 137 Potassium 2.8 L* Chloride 98 Carbon Dioxide 33 H Anion Gap 6 L BUN 5 L Creatinine 0.7 Creat Clearance w eGFR > 60 Random Glucose 107 H Lactic Acid 3.0 H* Calcium 11.2 H Total Bilirubin 0.9 D AST 64 H ALT 10 L Alkaline Phosphatase 152 H Creatine Kinase 95 Troponin I < 0.02 Total Protein 9.0 H Albumin 1.7 L Urine Color Ltyellow Urine Appearance Clear Urine pH 8.0 Ur Specific [place] 1.003 Urine Protein 1+ H Urine Glucose (UA) Negative Urine Ketones Negative Urine Blood 2+ H Urine Nitrite Negative Urine Bilirubin Negative Urine Urobilinogen Negative Ur Leukocyte Esterase 2+ H Urine WBC (Auto) 14 Urine RBC (Auto) <1 Ur Epithelial Cells Rare 08/03/17 14:21 RBC 3.96 MCV 83.1 MCHC 34.0 RDW 20.1 H MPV 7.6 Neutrophils % 76.6 Lymphocytes % 10.1 D Monocytes % 12.2 H Eosinophils % 0.6 Basophils % 0.5 - Medications Given in the ED: ED Medications Discontinued Medications Generic Name Dose Route Start Last Admin Trade Name Freq PRN Reason Stop Dose Admin Sodium Chloride 1,452 ml 08/03/17 15:02 08/03/17 15:25 Normal Saline - 20 ml/kg (1452 ml) 08/03/17 15:03 1,452 ml IV Administration ONCE ONE Medical Decision Making - Medical Decision Making 08/03/17 18:03 Will draw basic labs, obtain CT head to r/o brain metastasis, UA and CXR to investigate source of infection UA has 2+ leukocyte esterase. Will start on IV Cefuroxime and admit to Dr. Murphy *DC/Admit/Observation/Transfer Diagnosis at time of Disposition: Altered mental status, Acute urinary retention - Discharge Dispostion Admit: Yes - Referrals Referrals: Som Murphy MD [Primary Care Provider] - - Patient Instructions - Post Discharge Activity
[2017-08-03] MEDS ORDERED: KCL 10 MEQ IVPB 20 MEQ/200 ML INFUS.BAG IVPB ONE (16:20)
[2017-08-03] MEDS: KCL 10 MEQ IVPB 10 MEQ/100 ML INFUS.BAG IVPB SCH ×2 (16:32→18:02)
[2017-08-03] MEDS ORDERED: cefTAZidime PENTAHYDRATE 1 GM/50ML PRE-DOCKED (RESTRICTED TO ID) IVPB ONE (17:19)
[2017-08-03] MEDS ORDERED: MAGNESIUM SULF 50% (8.12 MEQ/2 ML-1 GM VIAL) IVPB ONE (20:19)
[2017-08-03] MEDS ORDERED: FENTANYL PATCH WASTE TD PRN (22:22)
[2017-08-03] MEDS: traMADol HCL 50 MG TABLET PO PRN (22:45)
[2017-08-03] MEDS: MONTELUKAST NA 10 MG TABLET PO SCH (22:46)
[2017-08-03] MEDS: DEXTROSE 5%-0.45% SALINE 1,000 ML IV SCH (22:48)
[2017-08-03] MEDS: fentaNYL 100mcg/hr PATCH.TD72 TD SCH (22:50)
[2017-08-03] MEDS: MAGNESIUM 1GM/D5W 100ML - 100 ML IVPB IVPB SCH (23:28)
[2017-08-04] MEDS: MAGNESIUM 1GM/D5W 100ML - 100 ML IVPB IVPB SCH (00:31)
[2017-08-04 03:18] VITALS: BMI 28.9
[2017-08-04] MEDS: traMADol HCL 50 MG TABLET PO PRN (08:14)
--- NOTE | 2017-08-04 08:14 | PN ---
Progress Note, Physician Chief Complaint: Pt lying in bed,afebrile,mildly dehydrated sedated pt is on iv antibiotics no vomiting blood cul and urine cul pending - Current Medication List Current Medications: Active Medications Fentanyl (Duragesic 100mcg Patch -) 1 patch TD Q48H [facility] Last Admin: 08/03/17 22:50 Dose: 1 patch Dextrose/Sodium Chloride (D5-1/2ns -) 1,000 mls @ 75 mls/hr IV ASDIR [facility] Last Admin: 08/03/17 22:48 Dose: 75 mls/hr Miscellaneous (Duragesic Patch Waste) 1 each TD PRN PRN PRN Reason: PATCH REMOVAL Montelukast Sodium (Singulair -) 10 mg PO HS [facility] Last Admin: 08/03/17 22:46 Dose: 10 mg Ondansetron HCl (Zofran -) 4 mg PO Q8H PRN PRN Reason: NAUSEA Pantoprazole Sodium (Protonix -) 40 mg PO DAILY [facility] Tramadol HCl (Ultram -) 50 mg PO Q6H PRN PRN Reason: PAIN 6-10 Last Admin: 08/03/17 22:45 Dose: 50 mg - Objective Vital Signs: Vital Signs Temperature 98 F 08/04/17 07:45 Pulse Rate 84 08/04/17 07:45 Respiratory Rate 16 08/04/17 07:45 Blood Pressure 130/70 08/04/17 07:45 O2 Sat by Pulse Oximetry (%) 97 08/04/17 02:58 Constitutional: Yes: No Distress Eyes: Yes: WNL HENT: Yes: WNL Neck: Yes: WNL Cardiovascular: Yes: WNL Respiratory: Yes: Regular Gastrointestinal: Yes: Normal Bowel Sounds, Soft Musculoskeletal: Yes: WNL Extremities: Yes: WNL Edema: Yes Edema: LLE: Trace, RLE: Trace Peripheral Pulses WNL: Yes Neurological: Yes: WNL, Alert, Cran Nerves II-XII Intact Psychiatric: Yes: WNL, Alert Labs: CBC, BMP 08/03/17 14:21 08/03/17 14:21 - ....Imaging Chest X-ray: Report Reviewed Assessment/Plan AMS Vomiting Hypokalemia UTI Stage 1v metastatic vaginal cancer PLAN f/u blood and urine cul continue pain management Monitor K and other labs oncology,ID,neurology and pain management consult
[2017-08-04] MEDS: PANTOPRAZOLE 40 MG TABLET (FP) PO SCH (09:40)
--- NOTE | 2017-08-04 13:32 | HP ---
DATE OF ADMISSION: DATE OF DICTATION: 08/04/2017 The patient is a 61-year-old female with a past medical history of stage IV vaginal cancer with metastasis to the lung and liver status post chemotherapy, radiation , status post rectovaginal fistula and status post bilateral stenting of the ureter, status post colostomy, diabetes, hypertension; came to the emergency room with complaints of increased confusion, unsteady gait, and persistent vomiting for the past few days. The family states that the patient is having multiple episodes of emesis, almost every time when she eats or drinks and as per the family, the patient was taking Zofran with partial relief of symptoms of nausea and vomiting and also, the patient has been noticing confusion for the last 3 days, so patient brought to the emergency room for further evaluation. Denies any fever, urinary symptoms, or chills. PAST MEDICAL HISTORY: As mentioned before. Patient also had history of pleural effusion and chest tube placement and the chest tube was removed, history of anemia, vaginal cancer stage IV, metastasis to the lung and liver, hypertension, rectovaginal fistula, and stenting of the nephrostomy tubes bilateral. SURGICAL HISTORY: History of colostomy and bilateral nephrostomy stenting. Patient is allergic to ASPIRIN and CIPRO. Lives with family. PERSONAL HISTORY: Nothing significant. MEDICATIONS: Patient is on fentanyl patch 1 patch every 48 hours, glipizide 5 mg p.o. daily, Singulair 10 mg daily, Zofran 4 mg p.o. t.i.d., pantoprazole 40 mg daily, and tramadol 50 mg p.o. q.6 hourly. REVIEW OF SYSTEMS: As mentioned before. General: Patient had symptoms of altered mental status. Respiratory: Nothing significant. History of pleural effusion. Cardiovascular: History of hypertension. Gastrointestinal: History of nausea and vomiting. Genitourinary: History of rectovaginal fistula and nephrostomy tube placement. PHYSICAL EXAMINATION: Vital Signs: In the emergency room, temperature 98.6, pulse 81, respirations 18 , blood pressure 113/64, pulse oximetry 98. General: Patient is appropriately dressed, thin, no apparent distress. HEENT: Pupils equally reactive to light and accommodation. Respiratory: Decreased breath sounds. No rhonchi, no crepitations. Cardiovascular: First and 2nd sounds normal. Gastrointestinal: Abdomen soft, nontender, normal bowel sounds. No mass appreciated. Extremities: Pedal edema bilaterally. Neurological: Altered mental status on and off. No apparent motor or sensory deficits. Cranial nerves II through XII normal. LABORATORIES: CBC with WBC 8.5, hemoglobin 11.2, hematocrit 32.9, platelets 177. CMP shows sodium 137, potassium 2.8, chloride 98, bicarbonate 33, BUN 5, creatinine 0.7, blood sugar 107. Lactic acid ___3__. Alkaline phosphatase 152. Calcium 11.2. AST 64, ALT 10. Troponin less than 2. Blood culture pending. Urine culture pending. Urine shows protein 1+, blood 2+, leukocyte esterase 2+, WBC 14, RBC less than 1. Head CT done is negative. Chest x-ray: No significant findings Patient was given normal saline in the ER and 1 dose of IV cefuroxime in the emergency room. Patient admitted to the floor with admitting diagnoses of altered mental status, hypokalemia, acute urinary infection, stage IV metastatic vaginal cancer, vomiting. r/o sepsis Patient admitted to the floor with the plan to continue IV fluid.contnue antibiotics Blood culture and urine culture will follow. Continue pain management. Oncology, Neurology, ID consult and Pain Management consult called. Will monitor potassium. Patient stable on the floor. CHANO HUTCHINS M.D. /[id number] MTDD
[2017-08-04] MEDS: DEXTROSE 5%-0.45% SALINE 1,000 ML IV SCH (13:45)
[2017-08-04 14:02] LABS: HEMATOCRIT 32.1 % (32.4-45.2); HEMOGLOBIN 10.6 GM/dL (10.7-15.3); MCH 27.8 pg (25.7-33.7); MCHC 33.1 g/dl (32.0-36.0); MEAN CELL VOLUME 83.8 fl (80-96); MEAN PLT VOLUME 7.5 fl (7.5-11.1); PLATELET COUNT 172 K/MM3 (134-434); RBC 3.83 M/mm3 (3.60-5.2); RDW 20.4 % (11.6-15.6); WHITE BLOOD COUNT 7.9 K/mm3 (4.0-10.0)
--- NOTE | 2017-08-04 14:03 | CONSULT ---
Consult - text type - Consultation Consultation Note: NEUROLOGY CONSULTATION is greatly appreciated. Events reviewed. Patient examined with her son at the bedside who aids with the history. Seen in coverage of Dr. Ross. 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 S/P RT and Chemo. S/P colostomy and rectovaginal fistula repair. S/P B/L ureteral stents. Known lung and liver mets. On Singulair, protonix, tramadol and Fentanyl (100 ug q 72 hrs). Her son relates 1 month of confusion at night. Now admitted after 5 days of daytime confusion at home, associated with nausea, vomiting and inability to keep down food or water. CT of brain (reviewed): Normal Urine WBC=14. Given Ceftazidime x 1 dose. Ca++=11.2; albumin= 1.7 mg%; and total protein= 9.0 mg% SUNNI: No bruits. No head trauma. Pt denies pain. In NAD NEURO: Confused. [facility] "across the street from [facility]." July 2003. Recalls [facility] @ 3 mins Sparse fluent speech. - frontal release. CN II-XII: normal Motor: No drift. Occ. Myoclonic jerks. Normal strength. Normal reflexes except AJ's. Toes downgoing. Coord: No FTN dystaxia Sensory: Normal. Romberg- Gait: Sl shuffle. IMP: Non-focal neurological exam. Mild B/L cerebral dysfunction (OMS) with features of Toxic-Metabolic encephalopathy (TME). Probably multifactorial with contribution from Hypercalcemia, Narcotics, infection. SUGGEST: Check serum-free calcium, B12, B1, TSH, T4, ammonia levels. Decrease Fentanyl to 75 ug q 72 hrs. Continue hydration. ID consult. Parenteral thiamine (200 mg IVPB TID x 3 days). Thank you very much, Kamron Garibay MD
[2017-08-04] MEDS ORDERED: FENTANYL PATCH WASTE MC PRN (14:20)
[2017-08-04 14:29] LABS: ALBUMIN 1.5 g/dl (3.4-5.0); ANION GAP 8 (8-16); BILIRUBIN,TOTAL 0.6 mg/dL (0.2-1.0); BLOOD UREA NITROGEN 4 mg/dL (7-18); CALCIUM 10.8 mg/dL (8.5-10.1); CHLORIDE 99 mmol/L (98-107); CO2 32 mmol/L (21-32); CREATININE 0.7 mg/dL (0.55-1.02); GLUCOSE,RANDOM 108 mg/dL (74-106); SGOT/AST 60 U/L (15-37); SGPT/ALT 10 U/L (12-78); SODIUM 139 mmol/L (136-145); TOT PROT 8.3 g/dl (6.4-8.2)
[2017-08-04 14:30] LABS: ALK PHOS 138 U/L (45-117)
--- NOTE | 2017-08-04 14:32 | EKG ---
Test Reason : Blood Pressure : / mmHG Vent. Rate : 087 BPM Atrial Rate : 087 BPM P-R Int : 168 ms QRS Dur : 142 ms QT Int : 394 ms P-R-T Axes : 030 032 -21 degrees QTc Int : 474 ms NORMAL SINUS RHYTHM RIGHT BUNDLE BRANCH BLOCK CANNOT RULE OUT INFERIOR INFARCT , AGE UNDETERMINED ABNORMAL ECG WHEN COMPARED WITH ECG OF 24-JUN-2017 11:56, MINIMAL CRITERIA FOR INFERIOR INFARCT ARE NOW PRESENT Confirmed by MD Olvin, Tanner ([id number]) on 08/04/2017 2:31:43 PM Referred By: Confirmed By:Tanner Bah MD
[2017-08-04 14:39] LABS: POTASSIUM 2.7 mmol/L (3.5-5.1)
[2017-08-04] MEDS ORDERED: POTASSIUM CHLORIDE 10 MEQ in SODIUM CHLORIDE 100 ML IVPB SCH (15:00)
[2017-08-04] MEDS: fentaNYL 75mcg/hr PATCH.TD72 TD SCH (15:00)
--- NOTE | 2017-08-04 15:12 | PN ---
Progress Note (short form) - Note Progress Note: ID Consult dictated UTI Possible sepsis secondary to UTI Toxic metabolic encephalopathy Metastatic ca Pending c/s empiric cefepime
--- NOTE | 2017-08-04 15:35 | CONS ---
INFECTIOUS DISEASE CONSULTATION DATE OF CONSULTATION: DATE OF DICTATION: 08/04/2017 HISTORY OF PRESENT ILLNESS: A 61-year-old female with a history of stage IV vaginal CA with metastases to the liver and lung evaluated for urinary tract infection and altered mental status. The patient is cared for at home. According to family members, over the past several days she has had worsening confusion as well as nausea, vomiting, and anorexia. She was unable to keep down any food at home. She was evaluated in the emergency room where urinalysis showed pyuria. She was empirically treated with ceftazidime. She is awake but confused. She complains of suprapubic discomfort, denies dysuria or hematuria. No reports of high-grade fever, shaking chills, labored breathing, cough, sputum production, or diarrhea. No reports of infected decubitus ulcers. PAST MEDICAL HISTORY: Positive for stage IV vaginal cancer with lung and liver metastases, status post chemotherapy and radiation therapy, diabetes mellitus, hypertension, chronic pleural effusion status post chest tube, rectovaginal fistula, bilateral ureteral stents and colostomy. ALLERGIES: ASPIRIN and CIPRO, nature of the CIPRO allergy rash. MEDICATIONS: Include fentanyl, Protonix, tramadol. Home medications include glipizide, fentanyl, Protonix, tramadol. SOCIAL HISTORY: Was residing at home with family members. Nonsmoker, nondrinker. SYSTEMS REVIEW:Neurologic: As per HPI. Cardiac: Negative chest pain or palpitations. Respiratory: Negative cough or sputum production.Gastrointestinal: As per HPI. Genitourinary: As per HPI. LABORATORY DATA: White count 7.9, hematocrit 32.1, platelet count 172. BUN 41, creatinine 0.7. CAT scan of the head negative. Chest x-ray negative. Urinalysis 14 white cells. PHYSICAL EXAMINATION:General: She is awake but confused.Vital Signs: Temperature 98, blood pressure 130/70, pulse 84, regular, respirations 16 per minute. HEENT: Sclerae are anicteric. Heart Sounds: S1, S2. Lungs: Clear bilaterally.Abdomen: Soft. There is suprapubic tenderness to palpation. Extremities: A 1+ edema. IMPRESSION: 1. Urinary tract infection. 2. Possible sepsis secondary to urinary tract infection. 3. Toxic metabolic encephalopathy. 4. Metastatic carcinoma. PLAN: Pending cultures, empiric antibiotic coverage with cefepime 1 g IV piggyback every 8 hours, IV fluid hydration. Will follow. Thank you for the kind referral. GENE SANDOVAL M.D. HANG/[id number]
[2017-08-04] MEDS ORDERED: POTASSIUM CHLORIDE 20 MEQ in SODIUM CHLORIDE 250 ML IVPB SCH (16:00)
[2017-08-04] MEDS: CEFEPIME HCL/D5W 1 GM/50 ML BAG IVPB SCH ×2 (16:05→17:16)
[2017-08-04] MEDS: THIAMINE HCL 200 MG/2 ML VIAL IVPB SCH ×2 (17:04→22:10)
[2017-08-04] MEDS ORDERED: PT OWN MED DRAWER 7, Y5N ONE (17:07)
--- NOTE | 2017-08-04 17:18 | PN ---
Progress Note (short form) - Note Progress Note: Patient with metastatic vaginal cancer, known from admission approximately 2 months ago, when she presented with pleural effusion, as below, with oncology assessment as below: "61yo female with hx of ? vaginal stage IV ca with mets to liver and lungs -has been treated at [facility] in [place] -has been on hospice -came off hospice -comes in with large pleural effusion/lung and liver mets for pain control--fentanyl 75mcg and morphine 4mg Q6h prn pulmonary consult--drainage of effusion" Returns now brought by family with several days of waxing and waning confusion, otherwise no new complaints. Recent increase in Fentanyl patch dose, but son states that symptoms began prior to changed dose. PMH/PSH - as above.Vaginal cancer with metastases to the lungs and liver s/p chemotherapy and radiation, s/p rectovaginal, s/p bilateral nephro stenting, s/ p colostomy, diabetes, and HTN, Review of symptoms non-contributory other than mental status change as above. Patient with functional status ECOG 3 - no acute changes. Pain generally controlled. Inpatient Meds reviewed. Current Medications Generic Name Dose Route Start Last Admin Trade Name Freq PRN Reason Stop Dose Admin Fentanyl 1 patch 08/03/17 22:30 08/03/17 22:50 Duragesic 100mcg Patch - TD 1 patch Q48H OZZIE Administration Fentanyl 1 patch 08/04/17 14:30 08/04/17 15:00 Duragesic 75mcg Patch - TD 1 patch Q72H OZZIE Administration Dextrose/Sodium Chloride 1,000 mls @ 75 mls/hr 08/03/17 22:30 08/04/17 13:45 D5-1/2ns - IV 75 mls/hr ASDIR OZZIE Administration Cefepime HCl 1 gm in 50 mls @ 100 mls/hr 08/04/17 15:15 08/04/17 17:16 Maxipime 1 Gm Premix Ivpb IVPB Not Given Q8H-IV OZZIE Protocol Potassium Chloride 20 meq/ 260 mls @ 130 mls/hr 08/04/17 16:00 Sodium Chloride IVPB 08/04/17 19:59 Q2H OZZIE Miscellaneous 1 each 08/04/17 14:20 Duragesic Patch Waste MC PRN PRN PAIN Montelukast Sodium 10 mg 08/03/17 22:30 08/03/17 22:46 Singulair - PO 10 mg HS OZZIE Administration Ondansetron HCl 4 mg 08/03/17 22:21 Zofran - PO Q8H PRN NAUSEA Pantoprazole Sodium 40 mg 08/04/17 10:00 08/04/17 09:40 Protonix - PO 40 mg DAILY OZZIE Administration Thiamine HCl 200 mg 08/04/17 14:30 08/04/17 17:04 Vitamin B1 Injection - IVPB 08/07/17 06:01 200 mg TID OZZIE Administration Tramadol HCl 50 mg 08/03/17 22:24 08/04/17 08:14 Ultram - PO 50 mg Q6H PRN Administration PAIN 6-10 On exam: Last Vital Signs Temp Pulse Resp BP Pulse Ox 97.9 F 87 18 99/60 96 08/04/17 14:57 08/04/17 14:57 08/04/17 14:57 08/04/17 14:57 08/04/17 08:17 General: In no acute distress. Extremities: No pallor or icterus, no pedal edema. Chest:breathing comfortably, clear, ICD CVS: S1, S2, no gallop or murmur. Abdomen: Non-distended, no masses or organomegaly. Colostomy Neuro: Alert, poorly oriented, non-focal. Labs CBC, BMP 08/04/17 13:45 08/04/17 13:45 Assessment. 61yo female with hx of metastatic vaginal ca with mets to liver and lungs Prior treatment at [facility] in [place] - now palliative care only. Now with recent change in mental status. Non-contrast CT brain read as normal. Metabolically unremarkable other than hypercalcemia. No overt signs of sepsis. Mixed metabolic acidosis and alkalosis. Saline diuresis. Consider bisphosphonate if calcium remains elevated. Replete potassium. Would screen for brain mets with MRI. Large protein gap noted. Check immunoglobulins and SPEP. Continue palliative measures. Will follow.
[2017-08-04] MEDS: POTASSIUM CHLORIDE 20 MEQ in SODIUM CHLORIDE 250 ML IVPB SCH ×2 (17:50→22:10)
[2017-08-04] MEDS: MONTELUKAST NA 10 MG TABLET PO SCH (22:10)
[2017-08-05] MEDS: CEFEPIME HCL/D5W 1 GM/50 ML BAG IVPB SCH ×3 (02:16→20:41)
[2017-08-05] MEDS: THIAMINE HCL 200 MG/2 ML VIAL IVPB SCH ×3 (06:17→21:35)
[2017-08-05] MEDS: DEXTROSE 5%-0.45% SALINE 1,000 ML IV SCH (06:17)
[2017-08-05] MEDS: traMADol HCL 50 MG TABLET PO PRN ×3 (06:37→21:35)
[2017-08-05] MEDS ORDERED: PT OWN MED DRAWER 7, Y5N ONE ×3 (06:57→21:29)
--- NOTE | 2017-08-05 09:21 | PN ---
Progress Note, Physician History of Present Illness: Awake, mildly confused C/O lower abdominal pain No c/o dysuria No fever/ chills Son at bedside. Reports mental status improved. Now able to take po - Current Medication List Current Medications: Active Medications Fentanyl (Duragesic 100mcg Patch -) 1 patch TD Q48H [facility] Last Admin: 08/03/17 22:50 Dose: 1 patch Fentanyl (Duragesic 75mcg Patch -) 1 patch TD Q72H [facility] Last Admin: 08/04/17 15:00 Dose: 1 patch Dextrose/Sodium Chloride (D5-1/2ns -) 1,000 mls @ 75 mls/hr IV ASDIR [facility] Last Admin: 08/05/17 06:17 Dose: 75 mls/hr Cefepime HCl (Maxipime 1 Gm Premix Ivpb) 1 gm in 50 mls @ 100 mls/hr IVPB Q8H- IV OZZIE PRN Reason: Protocol Last Admin: 08/05/17 02:16 Dose: 100 mls/hr Miscellaneous (Duragesic Patch Waste) 1 each MC PRN PRN PRN Reason: PAIN Montelukast Sodium (Singulair -) 10 mg PO HS [facility] Last Admin: 08/04/17 22:10 Dose: 10 mg Ondansetron HCl (Zofran -) 4 mg PO Q8H PRN PRN Reason: NAUSEA Pantoprazole Sodium (Protonix -) 40 mg PO DAILY [facility] Last Admin: 08/04/17 09:40 Dose: 40 mg Thiamine HCl (Vitamin B1 Injection -) 200 mg IVPB TID [facility] Stop: 08/07/17 06:01 Last Admin: 08/05/17 06:17 Dose: 200 mg Tramadol HCl (Ultram -) 50 mg PO Q6H PRN PRN Reason: PAIN 6-10 Last Admin: 08/05/17 06:37 Dose: 50 mg - Objective Vital Signs: Vital Signs Temperature 98.2 F 08/05/17 07:11 Pulse Rate 98 H 08/05/17 07:11 Respiratory Rate 18 08/05/17 07:11 Blood Pressure 144/80 08/05/17 07:11 O2 Sat by Pulse Oximetry (%) 96 08/04/17 21:00 Constitutional: Yes: No Distress Cardiovascular: Yes: Regular Rate and Rhythm, S1, S2 Respiratory: Yes: CTA Bilaterally Gastrointestinal: Yes: Normal Bowel Sounds, Soft, Tenderness, Other (+ lower abdominal tenderness) Edema: Yes Edema: LLE: 1+, RLE: 1+ Labs: CBC, BMP 08/04/17 13:45 08/04/17 13:45 Assessment/Plan UTI/ possible sepsis secondary to UTI Toxic metabolic encephalopathy - improved Metastatic ca Await culture results Continue empiric cefepime
--- NOTE | 2017-08-05 09:26 | PN ---
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 S/P RT and Chemo. Patient seen and examined with her son at the bedside who aided with the history. Appreciate Dr. Garibay consult and coverage over the weekend. S/P colostomy and rectovaginal fistula repair. S/P B/ L ureteral stents. Known lung and liver mets. Consulted for altered mental status in the context of toxic metabolic enceph, multifactorial, with underlying infection, narcotics and hyperCa. This AM, patient more awake and interactive with son, per him. She is able to tell me she's in the hospital and month, but did not know the year (which reportedly she does not know at home). She is getting Cefepime at bedside and likely improvement from this. Active Medications Fentanyl (Duragesic 100mcg Patch -) 1 patch TD Q48H REPLACED BY [facility] Last Admin: 08/03/17 22:50 Dose: 1 patch Fentanyl (Duragesic 75mcg Patch -) 1 patch TD Q72H [facility]PLAC[facility] BY [facility] Last Admin: 08/04/17 15:00 Dose: 1 patch Dextrose/Sodium Chloride (D5-1/2ns -) 1,000 mls @ 75 mls/hr IV ASDIR REPLACED BY [facility] Last Admin: 08/05/17 06:17 Dose: 75 mls/hr Cefepime HCl (Maxipime 1 Gm Premix Ivpb) 1 gm in 50 mls @ 100 mls/hr IVPB Q8H- IV OZZIE PRN Reason: Protocol Last Admin: 08/05/17 02:16 Dose: 100 mls/hr Miscellaneous (Duragesic Patch Waste) 1 each MC PRN PRN PRN Reason: PAIN Montelukast Sodium (Singulair -) 10 mg PO HS [facility]PL[facility] Last Admin: 08/04/17 22:10 Dose: 10 mg Ondansetron HCl (Zofran -) 4 mg PO Q8H PRN PRN Reason: NAUSEA Pantoprazole Sodium (Protonix -) 40 mg PO DAILY [facility] Last Admin: 08/04/17 09:40 Dose: 40 mg Thiamine HCl (Vitamin B1 Injection -) 200 mg IVPB TID REPLACED BY [facility] Stop: 08/07/17 06:01 Last Admin: 08/05/17 06:17 Dose: 200 mg Tramadol HCl (Ultram -) 50 mg PO Q6H PRN PRN Reason: PAIN 6-10 Last Admin: 08/05/17 06:37 Dose: 50 mg Vital Signs Temperature 98.2 F 08/05/17 07:11 Pulse Rate 98 H 08/05/17 07:11 Respiratory Rate 18 08/05/17 07:11 Blood Pressure 144/80 08/05/17 07:11 O2 Sat by Pulse Oximetry (%) 96 08/04/17 21:00 SUNNI: No bruits. No head trauma. Pt denies pain. In NAD Card: Normal S1,S2 Lungs: Clear, no wheezing Abd: Soft, not tender NEURO: Knows person, place, month but not the year (baseline for her CN II-XII: normal, no facial droop, no aphasia or dysarthria Motor: Strength intact Reflexes: 2+ Coord: No FTN dystaxia Sensory: Normal Gait: Deferred CBCD WBC 7.9 K/mm3 (4.0-10.0) 08/04/17 13:45 RBC 3.83 M/mm3 (3.60-5.2) 08/04/17 13:45 Hgb 10.6 GM/dL (10.7-15.3) L 08/04/17 13:45 Hct 32.1 % (32.4-45.2) L 08/04/17 13:45 MCV 83.8 fl (80-96) 08/04/17 13:45 MCHC 33.1 g/dl (32.0-36.0) 08/04/17 13:45 RDW 20.4 % (11.6-15.6) H 08/04/17 13:45 Plt Count 172 K/MM3 (134-434) 08/04/17 13:45 MPV 7.5 fl (7.5-11.1) 08/04/17 13:45 CMP Sodium 139 mmol/L (136-145) 08/04/17 13:45 Potassium 2.7 mmol/L (3.5-5.1) L* 08/04/17 13:45 Chloride 99 mmol/L (98-107) 08/04/17 13:45 Carbon Dioxide 32 mmol/L (21-32) 08/04/17 13:45 Anion Gap 8 (8-16) 08/04/17 13:45 BUN 4 mg/dL (7-18) L 08/04/17 13:45 Creatinine 0.7 mg/dL (0.55-1.02) 08/04/17 13:45 Creat Clearance w eGFR > 60 (>60) 08/04/17 13:45 Random Glucose 108 mg/dL (74-106) H 08/04/17 13:45 Calcium 10.8 mg/dL (8.5-10.1) H 08/04/17 13:45 Total Bilirubin 0.6 mg/dL (0.2-1.0) D 08/04/17 13:45 AST 60 U/L (15-37) H 08/04/17 13:45 ALT 10 U/L (12-78) L 08/04/17 13:45 Alkaline Phosphatase 138 U/L (45-117) H 08/04/17 13:45 Total Protein 8.3 g/dl (6.4-8.2) H 08/04/17 13:45 Albumin 1.5 g/dl (3.4-5.0) L 08/04/17 13:45 CARDIAC ENZYMES Creatine Kinase 95 IU/L (26-192) 08/03/17 14:21 Troponin I < 0.02 ng/ml (0.00-0.05) 08/03/17 14:21 A/P 61 yo female with h/o DM, HTN, GERD 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 S/P RT and Chemo. Patient seen and examined with her son at the bedside who aided with the history. Appreciate Dr. Garibay consult and coverage over the weekend. S/P colostomy and rectovaginal fistula repair. S/P B/ L ureteral stents. Known lung and liver mets. Consulted for altered mental status in the context of toxic metabolic enceph, multifactorial, with underlying infection, narcotics and hyperCa. This AM, patient more awake and interactive with son, per him. She is able to tell me she's in the hospital and month, but did not know the year (which reportedly she does not know at home). She is getting Cefepime at bedside and likely improvement from this. Would recommend reduction of narcotics. Continue hydration, ID following. Monitor labs , ammonia level normal. Gradual improvement occuring, discussed with son.
--- NOTE | 2017-08-05 10:24 | PN ---
Progress Note, Physician Chief Complaint: Pt lying in bed,alert,awake,vitals stable,afebrile Feels comfortable,no vomiting Oncology,neurology,Id consult appreciated [facility] MRI of brain hypokalemia blood cul negative - Current Medication List Current Medications: Active Medications Fentanyl (Duragesic 100mcg Patch -) 1 patch TD Q48H [facility] Last Admin: 08/03/17 22:50 Dose: 1 patch Fentanyl (Duragesic 75mcg Patch -) 1 patch TD Q72H [facility] Last Admin: 08/04/17 15:00 Dose: 1 patch Dextrose/Sodium Chloride (D5-1/2ns -) 1,000 mls @ 75 mls/hr IV ASDIR [facility] Last Admin: 08/05/17 06:17 Dose: 75 mls/hr Cefepime HCl (Maxipime 1 Gm Premix Ivpb) 1 gm in 50 mls @ 100 mls/hr IVPB Q8H- IV OZZIE PRN Reason: Protocol Last Admin: 08/05/17 02:16 Dose: 100 mls/hr Miscellaneous (Duragesic Patch Waste) 1 each MC PRN PRN PRN Reason: PAIN Montelukast Sodium (Singulair -) 10 mg PO HS [facility] Last Admin: 08/04/17 22:10 Dose: 10 mg Ondansetron HCl (Zofran -) 4 mg PO Q8H PRN PRN Reason: NAUSEA Pantoprazole Sodium (Protonix -) 40 mg PO DAILY [facility] Last Admin: 08/04/17 09:40 Dose: 40 mg Thiamine HCl (Vitamin B1 Injection -) 200 mg IVPB TID [facility] Stop: 08/07/17 06:01 Last Admin: 08/05/17 06:17 Dose: 200 mg Tramadol HCl (Ultram -) 50 mg PO Q6H PRN PRN Reason: PAIN 6-10 Last Admin: 08/05/17 06:37 Dose: 50 mg - Objective Vital Signs: Vital Signs Temperature 98.2 F 08/05/17 07:11 Pulse Rate 98 H 08/05/17 07:11 Respiratory Rate 18 08/05/17 07:11 Blood Pressure 144/80 08/05/17 07:11 O2 Sat by Pulse Oximetry (%) 96 08/04/17 21:00 Constitutional: Yes: No Distress Eyes: Yes: Conjunctiva Clear HENT: Yes: Atraumatic Neck: Yes: Supple Cardiovascular: Yes: Regular Rate and Rhythm Respiratory: Yes: Regular, CTA Bilaterally Gastrointestinal: Yes: Normal Bowel Sounds, Other (Colodtomy bag contains stool ) Musculoskeletal: Yes: WNL Extremities: Yes: WNL Peripheral Pulses WNL: Yes Neurological: Yes: WNL, Alert, Oriented Psychiatric: Yes: WNL, Alert Labs: CBC, BMP 08/04/17 13:45 08/04/17 13:45 - ....Imaging Chest X-ray: Report Reviewed Assessment/Plan AMS,r/o sepsis Vomiting Hypokalemia improved hypercalcemia UTI Stage 1v metastatic vaginal cancer PLAN F/u blood and urine cul continue pain management Monitor K and calcium oncology,ID,neurology f/u continue antibiotics k suupliment
[2017-08-05] MEDS: PANTOPRAZOLE 40 MG TABLET (FP) PO SCH (10:32)
[2017-08-05 11:21] LABS: ALBUMIN 1.4 g/dl (3.4-5.0); ALK PHOS 134 U/L (45-117); ANION GAP 5 (8-16); BILIRUBIN,TOTAL 0.7 mg/dL (0.2-1.0); BLOOD UREA NITROGEN 4 mg/dL (7-18); CHLORIDE 101 mmol/L (98-107); CO2 30 mmol/L (21-32); CREATININE 0.6 mg/dL (0.55-1.02); GLUCOSE,RANDOM 123 mg/dL (74-106); SGOT/AST 54 U/L (15-37); SGPT/ALT 10 U/L (12-78); SODIUM 136 mmol/L (136-145); TOT PROT 7.9 g/dl (6.4-8.2)
[2017-08-05 11:25] LABS: POTASSIUM 2.6 mmol/L (3.5-5.1)
[2017-08-05] MEDS: POTASSIUM CHLORIDE 10 MEQ in SODIUM CHLORIDE 100 ML IVPB SCH ×3 (14:02→19:32)
--- NOTE | 2017-08-05 18:26 | EKG ---
Test Reason : Blood Pressure : / mmHG Vent. Rate : 100 BPM Atrial Rate : 100 BPM P-R Int : 152 ms QRS Dur : 140 ms QT Int : 334 ms P-R-T Axes : 015 024 -19 degrees QTc Int : 430 ms NORMAL SINUS RHYTHM RIGHT BUNDLE BRANCH BLOCK CANNOT RULE OUT INFERIOR INFARCT (CITED ON OR BEFORE 03-AUG-2017) T WAVE ABNORMALITY, CONSIDER LATERAL ISCHEMIA ABNORMAL ECG WHEN COMPARED WITH ECG OF 03-AUG-2017 15:15, NO SIGNIFICANT CHANGE WAS FOUND Confirmed by OK SILVERMAN MD ([id number]) on 08/05/2017 6:25:43 PM Referred By: Confirmed By:OK SILVERMAN MD
[2017-08-05] MEDS: MONTELUKAST NA 10 MG TABLET PO SCH (21:37)
--- NOTE | 2017-08-05 23:10 | PN ---
Progress Note (short form) - Note Progress Note: Patient seen and examined Tired Vomited twice AFVSS Cor: RSR, No murmurs, No gallops Lungs: Clear to P&A Abd: Soft, Normal bowel sounds, No organomegaly Ext:No significant edema Abnormal Lab Results 08/04/17 08/05/17 13:45 10:45 Potassium 2.6 L* Anion Gap 5 L BUN 4 L Random Glucose 123 H AST 54 H ALT 10 L Alkaline Phosphatase 134 H Albumin 1.4 L Albumin (PEP) 1.8 L Globulin 6.1 H Albumin/Globulin Ratio 0.3 L Beta Globulins 1.5 H IgG 3654 H IgA 1089 H Meds reviewed A/P 61 y/o patient with widely metastatic vaginal cancer. Originally diagnosed in 2013, s/p cis/RT, complicated by rectovagina fistula, s/p surgical repair, Developed recurrence--s/p carbo/taxol , aslo s/p 2nd line alimta nd 3d line everolimus, now with progressive disease Ruling out brain mets failure to thrive poor performance status discussing goals of care
[2017-08-05] MEDS: fentaNYL 100mcg/hr PATCH.TD72 TD SCH (23:20)
[2017-08-06] MEDS: CEFEPIME HCL/D5W 1 GM/50 ML BAG IVPB SCH ×2 (03:05→09:58)
[2017-08-06] MEDS: DEXTROSE 5%-0.45% SALINE 1,000 ML IV SCH ×3 (05:27→23:18)
[2017-08-06] MEDS: ONDANSETRON 4 MG TABLET PO PRN (05:27)
[2017-08-06] MEDS: traMADol HCL 50 MG TABLET PO PRN ×3 (05:27→21:10)
[2017-08-06] MEDS: THIAMINE HCL 200 MG/2 ML VIAL IVPB SCH ×3 (05:48→21:10)
[2017-08-06 06:07] LABS: IGA IMMUNOGLOBULIN 1089 mg/dL (87-352); IGG IMMUNOGLOBULIN 3654 mg/dL (700-1600); IGM IMMUNOGLOBULIN 81 mg/dL (26-217)
[2017-08-06 07:55] LABS: BASO % 0.6 % (0-2.0); EOS % 3.2 % (0-4.5); HEMATOCRIT 30.9 % (32.4-45.2); HEMOGLOBIN 10.3 GM/dL (10.7-15.3); LYMPH % 10.8 % (8-40); MCH 28.1 pg (25.7-33.7); MCHC 33.3 g/dl (32.0-36.0); MEAN CELL VOLUME 84.6 fl (80-96); MEAN PLT VOLUME 7.9 fl (7.5-11.1); MONO % 11.1 % (3.8-10.2); NEUT % 74.3 % (42.8-82.8); PLATELET COUNT 159 K/MM3 (134-434); RBC 3.65 M/mm3 (3.60-5.2); RDW 19.8 % (11.6-15.6)
[2017-08-06 08:24] LABS: CHLORIDE 98 mmol/L (98-107); SODIUM 137 mmol/L (136-145)
[2017-08-06 08:43] LABS: ALBUMIN 1.5 g/dl (3.4-5.0); ALK PHOS 147 U/L (45-117); ANION GAP 7 (8-16); BILIRUBIN,TOTAL 1.1 mg/dL (0.2-1.0); BLOOD UREA NITROGEN 3 mg/dL (7-18); CALCIUM 10.3 mg/dL (8.5-10.1); CO2 32 mmol/L (21-32); CREATININE 0.6 mg/dL (0.55-1.02); GLUCOSE,RANDOM 95 mg/dL (74-106); SGOT/AST 55 U/L (15-37); SGPT/ALT 10 U/L (12-78); TOT PROT 8.4 g/dl (6.4-8.2)
[2017-08-06 08:46] LABS: POTASSIUM 2.8 mmol/L (3.5-5.1)
--- NOTE | 2017-08-06 09:02 | PN ---
Progress Note, Physician Chief Complaint: Pt lying in bed,afebrile,mildly dehydrated pt is on iv antibiotics no vomiting blood cul negative Mri of brain shows metastatic nodule in the RT parietal region - Current Medication List Current Medications: Active Medications Fentanyl (Duragesic 100mcg Patch -) 1 patch TD Q48H [facility] Last Admin: 08/05/17 23:20 Dose: Not Given Fentanyl (Duragesic 75mcg Patch -) 1 patch TD Q72H [facility] Last Admin: 08/04/17 15:00 Dose: 1 patch Dextrose/Sodium Chloride (D5-1/2ns -) 1,000 mls @ 75 mls/hr IV ASDIR [facility] Last Admin: 08/06/17 05:28 Dose: Not Given Cefepime HCl (Maxipime 1 Gm Premix Ivpb) 1 gm in 50 mls @ 100 mls/hr IVPB Q8H- IV OZZIE PRN Reason: Protocol Last Admin: 08/06/17 03:05 Dose: 100 mls/hr Miscellaneous (Duragesic Patch Waste) 1 each MC PRN PRN PRN Reason: PAIN Montelukast Sodium (Singulair -) 10 mg PO HS [facility] Last Admin: 08/05/17 21:37 Dose: 10 mg Ondansetron HCl (Zofran -) 4 mg PO Q8H PRN PRN Reason: NAUSEA Last Admin: 08/06/17 05:27 Dose: 4 mg Pantoprazole Sodium (Protonix -) 40 mg PO DAILY [facility] Last Admin: 08/05/17 10:32 Dose: 40 mg Thiamine HCl (Vitamin B1 Injection -) 200 mg IVPB TID [facility] Stop: 08/07/17 06:01 Last Admin: 08/06/17 05:48 Dose: 200 mg Tramadol HCl (Ultram -) 50 mg PO Q6H PRN PRN Reason: PAIN 6-10 Last Admin: 08/06/17 05:27 Dose: 50 mg - Objective Vital Signs: Vital Signs Temperature 98.3 F 08/06/17 06:00 Pulse Rate 96 H 08/06/17 06:00 Respiratory Rate 18 08/06/17 06:00 Blood Pressure 110/52 08/06/17 06:00 O2 Sat by Pulse Oximetry (%) 97 08/05/17 22:00 Constitutional: Yes: No Distress Eyes: Yes: Conjunctiva Clear HENT: Yes: Atraumatic Neck: Yes: Supple Cardiovascular: Yes: Regular Rate and Rhythm Respiratory: Yes: Regular Gastrointestinal: Yes: Normal Bowel Sounds, Other (colostomy working) Musculoskeletal: Yes: WNL Extremities: Yes: WNL Edema: No Peripheral Pulses WNL: Yes Neurological: Yes: WNL, Alert ...Motor Strength: WNL Psychiatric: Yes: WNL, Alert Labs: CBC, BMP 08/06/17 07:38 08/06/17 07:38 - ....Imaging MRI: Report Reviewed Assessment/Plan AMS Vomiting Hypokalemia UTI Stage 1v metastatic vaginal cancer with brain mets PLAN k suppliment continue pain management Monitor K and other labs oncology,ID,neurology and pain management f/u
[2017-08-06] MEDS ORDERED: PT OWN MED DRAWER 7, Y5N ONE ×2 (09:10→21:02)
--- NOTE | 2017-08-06 09:11 | PN ---
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 S/P RT and Chemo. Patient seen and examined with her son at the bedside who aided with the history. Appreciate Dr. Garibay consult and coverage over the weekend. S/P colostomy and rectovaginal fistula repair. S/P B/ L ureteral stents. Known lung and liver mets. Consulted for altered mental status in the context of toxic metabolic enceph, multifactorial, with underlying infection, narcotics and hyperCa. Met with son at bedside again, patient reamains awake and interactive with son. She is able to tell me she's in the hospital and month, but did not know the year (which reportedly she does not know at home). She is getting Cefepime at bedside and likely improvement from this. No new neurologic events overnight. Active Medications Fentanyl (Duragesic 100mcg Patch -) 1 patch TD Q48H [facility] Last Admin: 08/05/17 23:20 Dose: Not Given Fentanyl (Duragesic 75mcg Patch -) 1 patch TD Q72H [facility] Last Admin: 08/04/17 15:00 Dose: 1 patch Dextrose/Sodium Chloride (D5-1/2ns -) 1,000 mls @ 75 mls/hr IV ASDIR [facility] Last Admin: 08/06/17 05:28 Dose: Not Given Cefepime HCl (Maxipime 1 Gm Premix Ivpb) 1 gm in 50 mls @ 100 mls/hr IVPB Q8H- IV OZZIE PRN Reason: Protocol Last Admin: 08/06/17 03:05 Dose: 100 mls/hr Potassium Chloride (Potassium Chloride 10 Meq Premix Ivpb -) 10 meq in 100 mls @ 100 mls/hr IVPB Q60M [facility] Stop: 08/06/17 12:14 Miscellaneous (Duragesic Patch Waste) 1 each MC PRN PRN PRN Reason: PAIN Montelukast Sodium (Singulair -) 10 mg PO HS [facility] Last Admin: 08/05/17 21:37 Dose: 10 mg Ondansetron HCl (Zofran -) 4 mg PO Q8H PRN PRN Reason: NAUSEA Last Admin: 08/06/17 05:27 Dose: 4 mg Pantoprazole Sodium (Protonix -) 40 mg PO DAILY [facility] Last Admin: 08/05/17 10:32 Dose: 40 mg Thiamine HCl (Vitamin B1 Injection -) 200 mg IVPB TID O[facility]IE Stop: 08/07/17 06:01 Last Admin: 08/06/17 05:48 Dose: 200 mg Tramadol HCl (Ultram -) 50 mg PO Q6H PRN PRN Reason: PAIN 6-10 Last Admin: 08/06/17 05:27 Dose: 50 mg Vital Signs Temperature 98.3 F 08/06/17 06:00 Pulse Rate 96 H 08/06/17 06:00 Respiratory Rate 18 08/06/17 06:00 Blood Pressure 110/52 08/06/17 06:00 O2 Sat by Pulse Oximetry (%) 97 08/05/17 22:00 SUNNI: No bruits. No head trauma. Pt denies pain. In NAD Card: Normal S1,S2 Lungs: Clear, no wheezing Abd: Soft, not tender NEURO: Knows person, place, month but not the year (baseline for her CN II-XII: normal, no facial droop, no aphasia or dysarthria Motor: Strength intact Reflexes: 2+ Coord: No FTN dystaxia Sensory: Normal Gait: Deferred CBCD WBC 9.0 K/mm3 (4.0-10.0) 08/06/17 07:38 RBC 3.65 M/mm3 (3.60-5.2) 08/06/17 07:38 Hgb 10.3 GM/dL (10.7-15.3) L 08/06/17 07:38 Hct 30.9 % (32.4-45.2) L 08/06/17 07:38 MCV 84.6 fl (80-96) 08/06/17 07:38 MCHC 33.3 g/dl (32.0-36.0) 08/06/17 07:38 RDW 19.8 % (11.6-15.6) H 08/06/17 07:38 Plt Count 159 K/MM3 (134-434) 08/06/17 07:38 MPV 7.9 fl (7.5-11.1) 08/06/17 07:38 CMP Sodium 137 mmol/L (136-145) 05/08/18 07:38 Potassium 2.8 mmol/L (3.5-5.1) L* 08/06/17 07:38 Chloride 98 mmol/L (98-107) 08/06/17 07:38 Carbon Dioxide 32 mmol/L (21-32) 08/06/17 07:38 Anion Gap 7 (8-16) L 08/06/17 07:38 BUN 3 mg/dL (7-18) L 08/06/17 07:38 Creatinine 0.6 mg/dL (0.55-1.02) 08/06/17 07:38 Creat Clearance w eGFR > 60 (>60) 08/06/17 07:38 Calcium 10.3 mg/dL (8.5-10.1) H 08/06/17 07:38 Total Bilirubin 1.1 mg/dL (0.2-1.0) H D 08/06/17 07:38 AST 55 U/L (15-37) H 08/06/17 07:38 ALT 10 U/L (12-78) L 08/06/17 07:38 Alkaline Phosphatase 147 U/L (45-117) H 08/06/17 07:38 Total Protein 8.4 g/dl (6.4-8.2) H 08/06/17 07:38 Albumin 1.5 g/dl (3.4-5.0) L 08/06/17 07:38 A/P 61 yo female with h/o DM, HTN, GERD 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 S/P RT and Chemo. Patient seen and examined with her son at the bedside who aided with the history. Appreciate Dr. Garibay consult and coverage over the weekend. S/P colostomy and rectovaginal fistula repair. S/P B/ L ureteral stents. Known lung and liver mets. Consulted for altered mental status in the context of toxic metabolic enceph, multifactorial, with underlying infection, narcotics and hyperCa. This AM, patient more awake and interactive with son, per him. She is able to tell me she's in the hospital and month, but did not know the year (which reportedly she does not know at home). She is getting Cefepime at bedside and likely improvement from this. Would recommend reduction of narcotics. Continue hydration, ID following. Monitor labs , ammonia level normal. Gradual improvement occuring, discussed with son. Neurologically stable at this time.
[2017-08-06] MEDS ORDERED: KCL 10 MEQ IVPB 10 MEQ/100 ML INFUS.BAG IVPB SCH (09:15)
[2017-08-06] MEDS: PANTOPRAZOLE 40 MG TABLET (FP) PO SCH (09:58)
[2017-08-06] MEDS ORDERED: PORTA CATH FLUSH 10 ML IVPUSH ONE (10:18)
[2017-08-06] MEDS: POTASSIUM CHLORIDE 10 MEQ in SODIUM CHLORIDE 100 ML IVPB SCH ×3 (11:32→14:43)
--- NOTE | 2017-08-06 12:35 | PN ---
Progress Note (short form) - Note Progress Note: Patient seen and examined improving per son imaging reviewed AFVSS Cor: RSR, No murmurs, No gallops Lungs: Clear to P&A Abd: Soft, Normal bowel sounds, No organomegaly Ext:No significant edema Last Vital Signs Temp Pulse Resp BP Pulse Ox 98.1 F 105 H 18 89/44 97 08/06/17 09:00 08/06/17 09:00 08/06/17 09:00 08/06/17 09:00 08/06/17 09:00 Current Medications Generic Name Dose Route Start Last Admin Trade Name Freq PRN Reason Stop Dose Admin Fentanyl 1 patch 08/03/17 22:30 08/05/17 23:20 Duragesic 100mcg Patch - TD Not Given Q48H OZZIE Fentanyl 1 patch 08/04/17 14:30 08/04/17 15:00 Duragesic 75mcg Patch - TD 1 patch Q72H OZZIE Administration Dextrose/Sodium Chloride 1,000 mls @ 75 mls/hr 08/03/17 22:30 08/06/17 05:28 D5-1/2ns - IV Not Given ASDIR OZZIE Cefepime HCl 1 gm in 50 mls @ 100 mls/hr 08/04/17 15:15 08/06/17 09:58 Maxipime 1 Gm Premix Ivpb IVPB 100 mls/hr Q8H-IV OZZIE Administration Protocol Potassium Chloride 10 meq/ 105 mls @ 100 mls/hr 08/06/17 09:45 08/06/17 11:32 Sodium Chloride IVPB 08/06/17 12:44 100 mls/hr Q60M OZZIE Administration Miscellaneous 1 each 08/04/17 14:20 Duragesic Patch Waste MC PRN PRN PAIN Montelukast Sodium 10 mg 08/03/17 22:30 08/05/17 21:37 Singulair - PO 10 mg HS OZZIE Administration Ondansetron HCl 4 mg 08/03/17 22:21 08/06/17 05:27 Zofran - PO 4 mg Q8H PRN Administration NAUSEA Pantoprazole Sodium 40 mg 08/04/17 10:00 08/06/17 09:58 Protonix - PO 40 mg DAILY OZZIE Administration Thiamine HCl 200 mg 08/04/17 14:30 08/06/17 05:48 Vitamin B1 Injection - IVPB 08/07/17 06:01 200 mg TID OZZIE Administration Tramadol HCl 50 mg 08/03/17 22:24 08/06/17 05:27 Ultram - PO 50 mg Q6H PRN Administration PAIN 6-10 08/06/17 07:38 08/06/17 07:38 61 y/o patient with widely metastatic vaginal cancer. Originally diagnosed in 2013, s/p cis/RT, complicated by rectovagina fistula, s/p surgical repair, Developed recurrence--s/p carbo/taxol , aslo s/p 2nd line alimta nd 3d line everolimus, now with progressive disease detailed d/w son will ask for radonc eval. will d/w radonc replete kim pal care consulted , d/w pts son declining PS.
[2017-08-06] MEDS: SENNOSIDES 8.6MG TABLET (FP) PO SCH (14:43)
--- NOTE | 2017-08-06 16:38 | PN ---
Progress Note, Physician History of Present Illness: Awake, mildly confused C/O lower abdominal pain, anorexia No c/o dysuria No fever/ chills Poor oral intake - Current Medication List Current Medications: Active Medications Fentanyl (Duragesic 100mcg Patch -) 1 patch TD Q48H [facility] Last Admin: 08/05/17 23:20 Dose: Not Given Fentanyl (Duragesic 75mcg Patch -) 1 patch TD Q72H [facility] Last Admin: 08/04/17 15:00 Dose: 1 patch Dextrose/Sodium Chloride (D5-1/2ns -) 1,000 mls @ 75 mls/hr IV ASDIR [facility] Last Admin: 08/06/17 05:28 Dose: Not Given Miscellaneous (Duragesic Patch Waste) 1 each MC PRN PRN PRN Reason: PAIN Montelukast Sodium (Singulair -) 10 mg PO HS [facility] Last Admin: 08/05/17 21:37 Dose: 10 mg Ondansetron HCl (Zofran -) 4 mg PO Q8H PRN PRN Reason: NAUSEA Last Admin: 08/06/17 05:27 Dose: 4 mg Pantoprazole Sodium (Protonix -) 40 mg PO DAILY [facility] Last Admin: 08/06/17 09:58 Dose: 40 mg Senna (Senna -) 2 tab PO DAILY [facility] Last Admin: 08/06/17 14:43 Dose: 2 tab Thiamine HCl (Vitamin B1 Injection -) 200 mg IVPB TID [facility] Stop: 08/07/17 06:01 Last Admin: 08/06/17 14:14 Dose: 200 mg Tramadol HCl (Ultram -) 50 mg PO Q6H PRN PRN Reason: PAIN 6-10 Last Admin: 08/06/17 14:14 Dose: 50 mg - Objective Vital Signs: Vital Signs Temperature 98.0 F 08/06/17 14:00 Pulse Rate 99 H 08/06/17 14:00 Respiratory Rate 20 08/06/17 14:00 Blood Pressure 136/96 08/06/17 14:00 O2 Sat by Pulse Oximetry (%) 97 08/06/17 09:00 Constitutional: Yes: No Distress Cardiovascular: Yes: Regular Rate and Rhythm, S1, S2 Respiratory: Yes: Diminished Gastrointestinal: Yes: Normal Bowel Sounds, Soft. No: Tenderness Labs: CBC, BMP 08/06/17 07:38 08/06/17 07:38 Assessment/Plan UTI/ possible sepsis secondary to UTI Toxic metabolic encephalopathy Metastatic ca BC no growth Urine c/s contaminated Substitute ceftriaxone 1gm q24h
[2017-08-06] MEDS: MONTELUKAST NA 10 MG TABLET PO SCH (21:10)
[2017-08-07] MEDS ORDERED: PT OWN MED DRAWER 7, Y5N ONE (05:00)
[2017-08-07] MEDS: THIAMINE HCL 200 MG/2 ML VIAL IVPB SCH (05:11)
[2017-08-07] MEDS: traMADol HCL 50 MG TABLET PO PRN ×2 (05:14→14:54)
--- NOTE | 2017-08-07 09:10 | PN ---
Progress Note (short form) - Note Progress Note: Radiation Oncology (full consult dictated) 61 yo with stage IV vaginal cancer dx'd '14 s/p pelvic RT/brachy w chemo, complicated by rectovaginal fistula s/p colostomy with progressive liver and lung mets, recent episode of AMS and ataxia, now clinically improving on abx. Complains of intermittent RUQ pain from progressive liver mets s/p RT in Jan (probably Yttrium radioembolization, at [facility]). MRI brain shows a 7mm right parietal lesion without edema or mass effect, and a right suboccipital node/ mass. Neurologically intact on exam and close to baseline MS per son. Discussed with son possibility of incidental small brain met vs infection, it is unlikely to be the cause of her recent neurologic changes and would consider a repeat MRI in 3 months to follow up if she decides to pursue active therapy. They plan to further d/w med onc tx options (had been on home hospice).
--- NOTE | 2017-08-07 09:23 | PN ---
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 S/P RT and Chemo. Patient seen and examined with her son at the bedside who aided with the history. Appreciate Dr. Garibay consult and coverage over the weekend. S/P colostomy and rectovaginal fistula repair. S/P B/ L ureteral stents. Known lung and liver mets. Consulted for altered mental status in the context of toxic metabolic enceph, multifactorial, with underlying infection, narcotics and hyperCa. Met with son at bedside again, patient reamains awake and interactive with son. She is able to tell me she's in the hospital and month, ID note reviewed, Ceftriaxone now being given. No new neurologic events overnight. Son reports she is gradually improving. Active Medications Fentanyl (Duragesic 100mcg Patch -) 1 patch TD Q48H [facility] Last Admin: 08/05/17 23:20 Dose: Not Given Fentanyl (Duragesic 75mcg Patch -) 1 patch TD Q72H [facility] Last Admin: 08/04/17 15:00 Dose: 1 patch Dextrose/Sodium Chloride (D5-1/2ns -) 1,000 mls @ 75 mls/hr IV ASDIR [facility] Last Admin: 08/06/17 23:18 Dose: 75 mls/hr Ceftriaxone Sodium 1 gm/ (Dextrose) 50 mls @ 100 mls/hr IVPB DAILY OZZIE PRN Reason: Protocol Miscellaneous (Duragesic Patch Waste) 1 each MC PRN PRN PRN Reason: PAIN Montelukast Sodium (Singulair -) 10 mg PO HS [facility] Last Admin: 08/06/17 21:10 Dose: 10 mg Ondansetron HCl (Zofran -) 4 mg PO Q8H PRN PRN Reason: NAUSEA Last Admin: 08/06/17 05:27 Dose: 4 mg Pantoprazole Sodium (Protonix -) 40 mg PO DAILY [facility] Last Admin: 08/06/17 09:58 Dose: 40 mg Senna (Senna -) 2 tab PO DAILY [facility] Last Admin: 08/06/17 14:43 Dose: 2 tab Tramadol HCl (Ultram -) 50 mg PO Q6H PRN PRN Reason: PAIN 6-10 Last Admin: 08/07/17 05:14 Dose: 50 mg Vital Signs Period Temp Pulse Resp BP Sys/Stanley Pulse Ox Last 24 Hr 98.0 F-99 F 99-107 20-20 121-136/56-96 97 SUNNI: No bruits. No head trauma. Pt denies pain. In NAD Card: Normal S1,S2 Lungs: Clear, no wheezing Abd: Soft, not tender NEURO: Knows person, place, month but not the year (baseline for her CN II-XII: normal, no facial droop, no aphasia or dysarthria Motor: Strength intact Reflexes: 2+ Coord: No FTN dystaxia Sensory: Normal Gait: Deferred CBCD WBC 9.0 K/mm3 (4.0-10.0) 08/06/17 07:38 RBC 3.65 M/mm3 (3.60-5.2) 08/06/17 07:38 Hgb 10.3 GM/dL (10.7-15.3) L 08/06/17 07:38 Hct 30.9 % (32.4-45.2) L 08/06/17 07:38 MCV 84.6 fl (80-96) 08/06/17 07:38 MCHC 33.3 g/dl (32.0-36.0) 08/06/17 07:38 RDW 19.8 % (11.6-15.6) H 08/06/17 07:38 Plt Count 159 K/MM3 (134-434) 08/06/17 07:38 MPV 7.9 fl (7.5-11.1) 08/06/17 07:38 CMP Sodium 137 mmol/L (136-145) 08/06/17 07:38 Potassium 2.8 mmol/L (3.5-5.1) L* 08/06/17 07:38 Chloride 98 mmol/L (98-107) 08/06/17 07:38 Carbon Dioxide 32 mmol/L (21-32) 08/06/17 07:38 Anion Gap 7 (8-16) L 08/06/17 07:38 BUN 3 mg/dL (7-18) L 08/06/17 07:38 Creatinine 0.6 mg/dL (0.55-1.02) 08/06/17 07:38 Creat Clearance w eGFR > 60 (>60) 08/06/17 07:38 Calcium 10.3 mg/dL (8.5-10.1) H 08/06/17 07:38 Total Bilirubin 1.1 mg/dL (0.2-1.0) H D 08/06/17 07:38 AST 55 U/L (15-37) H 08/06/17 07:38 ALT 10 U/L (12-78) L 08/06/17 07:38 Alkaline Phosphatase 147 U/L (45-117) H 08/06/17 07:38 Total Protein 8.4 g/dl (6.4-8.2) H 08/06/17 07:38 Albumin 1.5 g/dl (3.4-5.0) L 08/06/17 07:38 A/P 61 yo female with h/o DM, HTN, GERD 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 S/P RT and Chemo. Patient seen and examined with her son at the bedside who aided with the history. Appreciate Dr. Garibay consult and coverage over the weekend. S/P colostomy and rectovaginal fistula repair. S/P B/ L ureteral stents. Known lung and liver mets. Consulted for altered mental status in the context of toxic metabolic enceph, multifactorial, with underlying infection, narcotics and hyperCa. This AM, patient more awake and interactive with son, per him. She is able to tell me she's in the hospital and month, but did not know the year (which reportedly she does not know at home). Would recommend minimization of narcotics. Continue hydration, ID following, on Ceftriazone now. Monitor labs, ammonia level normal. Gradual improvement occuring, discussed with son. Neurologically stable at this time.
[2017-08-07] MEDS ORDERED: cefTRIAXone SODIUM 1 GM VIAL ONE (09:28)
[2017-08-07] MEDS ORDERED: DEXTROSE 5%-WATER - 50 ML IVPB ONE (09:28)
[2017-08-07] MEDS: SENNOSIDES 8.6MG TABLET (FP) PO SCH (09:30)
[2017-08-07] MEDS: PANTOPRAZOLE 40 MG TABLET (FP) PO SCH (09:30)
[2017-08-07] MEDS: CEFTRIAXONE 1 GM in DEXTROSE 5%-WATER - 50 ML IVPB SCH (09:31)
--- NOTE | 2017-08-07 09:52 | PN ---
Progress Note, Physician Chief Complaint: Pt lying in bed,afebrile,mildly dehydrated c/o constipation Xray abdomen ordered pt is on iv antibiotics no vomiting blood cul negative Mri of brain shows metastatic nodule in the RT parietal region - Current Medication List Current Medications: Active Medications Fentanyl (Duragesic 100mcg Patch -) 1 patch TD Q48H [facility] Last Admin: 08/05/17 23:20 Dose: Not Given Fentanyl (Duragesic 75mcg Patch -) 1 patch TD Q72H [facility] Last Admin: 08/04/17 15:00 Dose: 1 patch Dextrose/Sodium Chloride (D5-1/2ns -) 1,000 mls @ 75 mls/hr IV ASDIR [facility] Last Admin: 08/06/17 23:18 Dose: 75 mls/hr Ceftriaxone Sodium 1 gm/ (Dextrose) 50 mls @ 100 mls/hr IVPB DAILY [facility] PRN Reason: Protocol Last Admin: 08/07/17 09:31 Dose: 100 mls/hr Miscellaneous (Duragesic Patch Waste) 1 each MC PRN PRN PRN Reason: PAIN Montelukast Sodium (Singulair -) 10 mg PO HS [facility] Last Admin: 08/06/17 21:10 Dose: 10 mg Ondansetron HCl (Zofran -) 4 mg PO Q8H PRN PRN Reason: NAUSEA Last Admin: 08/06/17 05:27 Dose: 4 mg Pantoprazole Sodium (Protonix -) 40 mg PO DAILY [facility] Last Admin: 08/07/17 09:30 Dose: 40 mg Polyethylene Glycol (Miralax (For Daily Use) -) 17 gm PO DAILY [facility] Senna (Senna -) 2 tab PO DAILY [facility] Last Admin: 08/07/17 09:30 Dose: 2 tab Tramadol HCl (Ultram -) 50 mg PO Q6H PRN PRN Reason: PAIN 6-10 Last Admin: 08/07/17 05:14 Dose: 50 mg - Objective Vital Signs: Vital Signs Temperature 98.7 F 08/07/17 09:24 Pulse Rate 102 H 08/07/17 09:24 Respiratory Rate 20 08/07/17 09:24 Blood Pressure 113/71 08/07/17 09:24 O2 Sat by Pulse Oximetry (%) 97 08/06/17 22:00 Constitutional: Yes: No Distress, Other (sedated) Eyes: Yes: Conjunctiva Clear HENT: Yes: Atraumatic Neck: Yes: Supple Cardiovascular: Yes: Regular Rate and Rhythm Respiratory: Yes: Regular, CTA Bilaterally Gastrointestinal: Yes: WNL Musculoskeletal: Yes: WNL Extremities: Yes: WNL Edema: No Peripheral Pulses WNL: Yes Neurological: Yes: Other (sedated) Labs: CBC, BMP 08/06/17 07:38 Assessment/Plan AMS constipation Vomiting UTI Stage 1v metastatic vaginal cancer with brain mets PLAN X ray abdomen Miralax powder daily continue pain management Monitor K and other labs oncology,ID,neurology and pain management f/u
[2017-08-07 09:58] LABS: CALCIUM 10.3 mg/dL (8.5-10.1); CHLORIDE 99 mmol/L (98-107); SODIUM 138 mmol/L (136-145)
[2017-08-07 10:04] LABS: ALBUMIN 1.4 g/dl (3.4-5.0); ALK PHOS 156 U/L (45-117); ANION GAP 6 (8-16); BILIRUBIN,TOTAL 0.8 mg/dL (0.2-1.0); CO2 33 mmol/L (21-32); CREATININE 0.5 mg/dL (0.55-1.02); GLUCOSE,RANDOM 88 mg/dL (74-106); SGOT/AST 54 U/L (15-37); SGPT/ALT 11 U/L (12-78)
[2017-08-07] MEDS: POLYETHYLENE GLYCOL 3350 119 GM BTL PO SCH (10:19)
[2017-08-07 10:48] LABS: BLOOD UREA NITROGEN 2 mg/dL (7-18); POTASSIUM 2.7 mmol/L (3.5-5.1)
[2017-08-07] MEDS ORDERED: POTASSIUM CHLORIDE 20 MEQ in SODIUM CHLORIDE 250 ML IVPB ONE (12:00)
[2017-08-07] MEDS ORDERED: POTASSIUM CHLORIDE 10 MEQ in SODIUM CHLORIDE 100 ML IVPB ONE (14:00)
[2017-08-07] MEDS: fentaNYL 75mcg/hr PATCH.TD72 TD SCH (14:41)
--- NOTE | 2017-08-07 15:51 | CONS ---
DATE OF CONSULTATION: 08/07/2017 REFERRING PHYSICIAN: Magdalene Mccarthy MD REASON FOR CONSULTATION: Altered mental status with brain lesion. HISTORY OF PRESENT ILLNESS: The patient is a 61-year-old woman with a history of stage III vaginal cancer diagnosed in 2013, treated with chemoradiation with pelvic external beam and brachytherapy. Unfortunately she had a rectovaginal fistula, requiring a colostomy. Her disease recurred in the bones, requiring a right hip surgery. She had progression in the liver and lung and received probable Yttrium radioembolization in January 2017 at [facility]. She has also received alimta and most recently evirolimus. She has been on home hospice. Per her son, she became confused about a month ago, associated with unsteady gait and intractable nausea vomiting in the days prior to admission. On admission, she was felt to have a urinary tract infection and has received empiric antibiotics. Her mental status has improved close to baseline per her son. She reports intermittent chronic right upper quadrant pain as well as right lower quadrant pain. She has not had a bowel movement in 3 days. Her son informs that they were told that the liver metastases are enlarging since her last radiation treatment. She uses fentanyl, tramadol, and Neurontin at home. On this admission, an MRI of the brain revealed a 7-mm enhancing nodule in the right parietal lobe without surrounding edema or associated mass effect. Additionally, there is a 1.1 right suboccipital lymph node. She reports no recent nausea, vomiting, headaches, dizziness, blurry vision. She has a fair appetite and is keeping her food down without dysphagia. She has no problems with the colostomy. We were asked for an opinion on the brain lesion. PAST MEDICAL HISTORY: Stage IV vaginal cancer, as mentioned. Prior radiotherapy, as mentioned. Prior chemotherapy, as mentioned. Rectovaginal fistula, status post colostomy. Bilateral ureteral stents, hysterectomy, hypertension, diabetes mellitus, right pleural effusion status post chest tube drainage in May. Right hip surgery. PAST SURGICAL HISTORY: As noted. ALLERGIES: ASPIRIN and CIPROFLOXACIN. CURRENT MEDICATIONS: Senokot, Singulair, fentanyl patch, tramadol p.r.n., Protonix, cefepime, ondansetron p.r.n. SOCIAL HISTORY: She lives with her family, and does not smoke or consume alcohol. She is retired. FAMILY HISTORY: Noncontributory. REVIEW OF SYSTEMS: As noted. PHYSICAL EXAMINATION: General: Chronically ill [place] female in no acute distress. Her son is at the bedside. Vital Signs: Temperature 98.5, blood pressure 134/78, pulse 107, respiratory rate 20, SaO2 97% room air. HEENT: Normocephalic and atraumatic. Moist mucous membranes. Anicteric sclerae. Clear oral cavity. Neck: Nontender right posterior triangle lymph node. No supraclavicular adenopathy. Chest: Clear bilaterally without wheezes, rales, or rhonchi. Cardiovascular: Regular. Abdomen: Left colostomy, mild right upper quadrant tenderness, mild right lower quadrant tenderness. No suprapubic tenderness or distention. Extremities: No peripheral edema. Musculoskeletal: No spine or CVA tenderness. Neurologic: Awake, alert, oriented her name, age, son's name, month, year, and city. Cranial nerves 2-12 are intact. No sensory level. Sensation to light touch intact. No pronator drift. 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 The remaining motor exam is nonfocal. Coordination is normal. Gait was not tested. LABORATORY DATA: Sodium 138, potassium 2.7, BUN 2, creatinine 0.5, calcium 10.3 , total bilirubin 0.8, AST 54, ALT 11, alkaline phosphatase 156, albumin 1.4, WBC 9, hemoglobin 10.3, platelets 159,000. RADIOLOGIC DATA: Brain MRI August 05, 2017: See HPI. IMPRESSION: A 61-year-old woman with stage IV vaginal cancer, status post pelvic and liver radiotherapy, prior chemotherapy, with recent episode of confusion and vomiting that has largely resolved on supportive care and antibiotics. Toxic metabolic encephalopathy is considered. I reviewed the MRI of the brain with her and her son. I do not believe that the small parietal lesion is responsible for her recent symptoms. It could be an early brain metastasis or infection. PLAN: Her son informed me that they are considering their options at this time including active treatment although she was on home hospice recently. They plan to further discuss. I recommend palliative care for her, and if active therapy is pursued, a repeat brain MRI in 3 months to follow the lesion. I appreciate the opportunity to participate in the care of this patient. GERARDO COVINGTON M.D. JAY/[id number] MTDD
[2017-08-07] MEDS: DEXTROSE 5%-0.45% SALINE 1,000 ML IV SCH (16:21)
[2017-08-07] MEDS ORDERED: BISACODYL 10 MG SUPP.RECT RC ONE (16:45)
[2017-08-07] MEDS: ONDANSETRON 4 MG TABLET PO PRN (17:20)
[2017-08-07] MEDS ORDERED: MAGNESIUM SULFATE IN WATER 2 GM/50 ML IVPB IVPB ONE (17:30)
[2017-08-07] MEDS ORDERED: ONDANSETRON 4 MG/2 ML VIAL IVPUSH ONE (19:30)
[2017-08-07] MEDS: MONTELUKAST NA 10 MG TABLET PO SCH (21:58)
[2017-08-07] MEDS: fentaNYL 100mcg/hr PATCH.TD72 TD SCH (22:14)
[2017-08-08] MEDS: DEXTROSE 5%-0.45% SALINE 1,000 ML IV SCH ×3 (06:19→22:45)
[2017-08-08 07:37] LABS: HEMATOCRIT 32.5 % (32.4-45.2); HEMOGLOBIN 10.8 GM/dL (10.7-15.3); MCH 28.3 pg (25.7-33.7); MCHC 33.3 g/dl (32.0-36.0); MEAN CELL VOLUME 84.8 fl (80-96); MEAN PLT VOLUME 7.9 fl (7.5-11.1); PLATELET COUNT 141 K/MM3 (134-434); RBC 3.83 M/mm3 (3.60-5.2); RDW 20.1 % (11.6-15.6)
[2017-08-08 08:29] LABS: ANION GAP 5 (8-16); CALCIUM 10.7 mg/dL (8.5-10.1); CHLORIDE 98 mmol/L (98-107); CO2 35 mmol/L (21-32); GLUCOSE,RANDOM 108 mg/dL (74-106); MAGNESIUM 1.6 mg/dL (1.8-2.4); SODIUM 138 mmol/L (136-145)
[2017-08-08 09:12] LABS: CREATININE 0.6 mg/dL (0.55-1.02)
[2017-08-08 09:25] LABS: BLOOD UREA NITROGEN 2 mg/dL (7-18); POTASSIUM 2.7 mmol/L (3.5-5.1)
--- NOTE | 2017-08-08 09:45 | PN ---
Progress Note, Physician Chief Complaint: Pt lying in bed,afebrile,mildly dehydrated c/o constipation Xray abdomen no evidence of obstuction pt is on iv antibiotics no vomiting blood cul negative Mri of brain shows metastatic nodule in the RT parietal region Hypokalemia and hypomagnesemia - Current Medication List Current Medications: Active Medications Fentanyl (Duragesic 100mcg Patch -) 1 patch TD Q48H [facility] Last Admin: 08/07/17 22:14 Dose: Not Given Fentanyl (Duragesic 75mcg Patch -) 1 patch TD Q72H [facility] Last Admin: 08/07/17 14:41 Dose: 1 patch Dextrose/Sodium Chloride (D5-1/2ns -) 1,000 mls @ 75 mls/hr IV ASDIR [facility] Last Admin: 08/08/17 06:19 Dose: 75 mls/hr Ceftriaxone Sodium 1 gm/ (Dextrose) 50 mls @ 100 mls/hr IVPB DAILY [facility] PRN Reason: Protocol Last Admin: 08/07/17 09:31 Dose: 100 mls/hr Miscellaneous (Duragesic Patch Waste) 1 each [facility] PRN PRN PRN Reason: PAIN Last Admin: 08/07/17 14:48 Dose: 1 each Montelukast Sodium (Singulair -) 10 mg PO HS [facility] Last Admin: 08/07/17 21:58 Dose: 10 mg Ondansetron HCl (Zofran -) 4 mg PO Q8H PRN PRN Reason: NAUSEA Last Admin: 08/07/17 17:20 Dose: 4 mg Pantoprazole Sodium (Protonix -) 40 mg PO DAILY [facility] Last Admin: 08/07/17 09:30 Dose: 40 mg Polyethylene Glycol (Miralax (For Daily Use) -) 17 gm PO DAILY [facility] Last Admin: 08/07/17 10:19 Dose: 17 gm Senna (Senna -) 2 tab PO DAILY [facility] Last Admin: 08/07/17 09:30 Dose: 2 tab Tramadol HCl (Ultram -) 50 mg PO Q6H PRN PRN Reason: PAIN 6-10 Last Admin: 08/07/17 14:54 Dose: 50 mg - Objective Vital Signs: Vital Signs Temperature 98.5 F 08/08/17 06:00 Pulse Rate 108 H 08/08/17 06:00 Respiratory Rate 20 08/08/17 06:00 Blood Pressure 156/82 05/10/18 06:00 O2 Sat by Pulse Oximetry (%) 95 08/07/17 17:52 Constitutional: Yes: No Distress Eyes: Yes: Conjunctiva Clear HENT: Yes: Atraumatic Neck: Yes: Supple Cardiovascular: Yes: Regular Rate and Rhythm Respiratory: Yes: Regular, CTA Bilaterally Gastrointestinal: Yes: Normal Bowel Sounds, Soft, Other (No stool in the colostomy bag) Musculoskeletal: Yes: WNL Edema: No Peripheral Pulses WNL: Yes Neurological: Yes: WNL, Alert, Oriented ...Motor Strength: WNL Psychiatric: Yes: WNL, Alert Labs: CBC, BMP 08/08/17 06:30 08/08/17 06:30 - ....Imaging X-ray: Report Reviewed Assessment/Plan AMS resolved constipation Vomiting UTI 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
--- NOTE | 2017-08-08 09:56 | PN ---
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 S/P RT and Chemo. Patient seen and examined with her son at the bedside who aided with the history. Appreciate Dr. Garibay consult and coverage over the weekend. S/P colostomy and rectovaginal fistula repair. S/P B/ L ureteral stents. Known lung and liver mets. Consulted for altered mental status in the context of toxic metabolic enceph, multifactorial, with underlying infection, narcotics and hyperCa. MRI brain completed and reviewed. Met nodule noted in high convexity. PCP aware, ongoing medical mgmt. Active Medications Fentanyl (Duragesic 100mcg Patch -) 1 patch TD Q48H [facility] Last Admin: 08/07/17 22:14 Dose: Not Given Fentanyl (Duragesic 75mcg Patch -) 1 patch TD Q72H [facility] Last Admin: 08/07/17 14:41 Dose: 1 patch Dextrose/Sodium Chloride (D5-1/2ns -) 1,000 mls @ 75 mls/hr IV ASDIR [facility] Last Admin: 08/08/17 06:19 Dose: 75 mls/hr Ceftriaxone Sodium 1 gm/ (Dextrose) 50 mls @ 100 mls/hr IVPB DAILY [facility] PRN Reason: Protocol Last Admin: 08/07/17 09:31 Dose: 100 mls/hr Potassium Chloride (Potassium Chloride 10 Meq Premix Ivpb -) 10 meq in 100 mls @ 100 mls/hr IVPB Q60M [facility] Stop: 08/08/17 12:44 Magnesium Sulfate (Magnesium Sulfate) 2 gm IVPB ONCE ONE Stop: 08/08/17 09:47 Miscellaneous (Duragesic Patch Waste) 1 each MC PRN PRN PRN Reason: PAIN Last Admin: 08/07/17 14:48 Dose: 1 each Montelukast Sodium (Singulair -) 10 mg PO HS [facility] Last Admin: 08/07/17 21:58 Dose: 10 mg Ondansetron HCl (Zofran Injection) 4 mg IVPUSH Q8H [facility] Pantoprazole Sodium (Protonix -) 40 mg PO DAILY [facility] Last Admin: 08/07/17 09:30 Dose: 40 mg Polyethylene Glycol (Miralax (For Daily Use) -) 17 gm PO DAILY [facility] Last Admin: 08/07/17 10:19 Dose: 17 gm Senna (Senna -) 2 tab PO DAILY [facility] Last Admin: 08/07/17 09:30 Dose: 2 tab Tramadol HCl (Ultram -) 50 mg PO Q6H PRN PRN Reason: PAIN 6-10 Last Admin: 08/07/17 14:54 Dose: 50 mg Vital Signs Temperature 98.5 F 08/08/17 06:00 Pulse Rate 108 H 08/08/17 06:00 Respiratory Rate 20 08/08/17 06:00 Blood Pressure 156/82 08/08/17 06:00 O2 Sat by Pulse Oximetry (%) 95 08/07/17 17:52 SUNNI: No bruits. No head trauma. Pt denies pain. In NAD Card: Normal S1,S2 Lungs: Clear, no wheezing Abd: Soft, not tender NEURO: Knows person, place, month but not the year (baseline for her CN II-XII: normal, no facial droop, no aphasia or dysarthria Motor: Strength intact Reflexes: 2+ Coord: No FTN dystaxia Sensory: Normal Gait: Deferred CBCD WBC 9.0 K/mm3 (4.0-10.0) 08/08/17 06:30 RBC 3.83 M/mm3 (3.60-5.2) 08/08/17 06:30 Hgb 10.8 GM/dL (10.7-15.3) 08/08/17 06:30 Hct 32.5 % (32.4-45.2) 08/08/17 06:30 MCV 84.8 fl (80-96) 08/08/17 06:30 MCHC 33.3 g/dl (32.0-36.0) 08/08/17 06:30 RDW 20.1 % (11.6-15.6) H 08/08/17 06:30 Plt Count 141 K/MM3 (134-434) 08/08/17 06:30 MPV 7.9 fl (7.5-11.1) 08/08/17 06:30 CMP Sodium 138 mmol/L (136-145) 08/08/17 06:30 Potassium 2.7 mmol/L (3.5-5.1) L* 08/08/17 06:30 Chloride 98 mmol/L (98-107) 08/08/17 06:30 Carbon Dioxide 35 mmol/L (21-32) H 08/08/17 06:30 Anion Gap 5 (8-16) L 08/08/17 06:30 BUN 2 mg/dL (7-18) L* 08/08/17 06:30 Creatinine 0.6 mg/dL (0.55-1.02) 08/08/17 06:30 Creat Clearance w eGFR > 60 (>60) 08/07/17 07:45 Calcium 10.7 mg/dL (8.5-10.1) H 08/08/17 06:30 Total Bilirubin 0.8 mg/dL (0.2-1.0) D 08/07/17 07:45 AST 54 U/L (15-37) H 08/07/17 07:45 ALT 11 U/L (12-78) L 08/07/17 07:45 Alkaline Phosphatase 156 U/L (45-117) H 08/07/17 07:45 Total Protein 8.0 g/dl (6.4-8.2) 08/07/17 07:45 Albumin 1.4 g/dl (3.4-5.0) L 08/07/17 07:45 MRI brain reviewed A/P 61 yo female with h/o DM, HTN, GERD 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 S/P RT and Chemo. Patient seen and examined with her son at the bedside who aided with the history. Appreciate Dr. Garibay consult and coverage over the weekend. S/P colostomy and rectovaginal fistula repair. S/P B/ L ureteral stents. Known lung and liver mets. Consulted for altered mental status in the context of toxic metabolic enceph, multifactorial, with underlying infection, narcotics and hyperCa. Continue hydration, ID following, on Ceftriazone now. MRI brain reviewed. Medical optimization and mgmt thus far.
[2017-08-08] MEDS ORDERED: cefTRIAXone SODIUM 1 GM VIAL ONE (10:42)
[2017-08-08] MEDS ORDERED: DEXTROSE 5%-WATER - 50 ML IVPB ONE (10:42)
[2017-08-08] MEDS: SENNOSIDES 8.6MG TABLET (FP) PO SCH (10:45)
[2017-08-08] MEDS ORDERED: MAGNESIUM 2GM/50ML STERILE WATER IVPB IVPB ONE (10:45)
[2017-08-08] MEDS: PANTOPRAZOLE 40 MG TABLET (FP) PO SCH (10:46)
[2017-08-08] MEDS: POLYETHYLENE GLYCOL 3350 119 GM BTL PO SCH (10:50)
[2017-08-08] MEDS: CEFTRIAXONE 1 GM in DEXTROSE 5%-WATER - 50 ML IVPB SCH (10:50)
[2017-08-08] MEDS: ONDANSETRON 4 MG/2 ML VIAL IVPUSH SCH ×4 (11:45→22:46)
[2017-08-08] MEDS: POTASSIUM CHLORIDE 10 MEQ in SODIUM CHLORIDE 100 ML IVPB SCH ×3 (12:32→16:38)
--- NOTE | 2017-08-08 16:42 | PN ---
Progress Note (short form) - Note Progress Note: Patient seen and examined +pain +constipation +fatigue AFVSS Cor: RSR, No murmurs, No gallops Lungs: Clear to P&A Abd: Soft, Normal bowel sounds, No organomegaly, colostomy: formed stool Ext:No significant edema 61 y/o patient with widely metastatic vaginal cancer. Originally diagnosed in 2013, s/p cis/RT, complicated by rectovagina fistula, s/p surgical repair, Developed recurrence--s/p carbo/taxol , aslo s/p 2nd line alimta nd 3d line everolimus, now with progressive disease appreciate 's consult pal care consult pending continued GOC discussion declining PS, confined mostly to bed, poor po intake, med-onc options limited. son not at bedside, will discuss supportive care per PMD
--- NOTE | 2017-08-08 20:11 | CON.GI ---
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 Her daughter who is a pharmacist served as the seismic prospecting observer. She reports that her mother had not had any colostomy difficulties until now. She had liquidy colostomy output daily with Colace. She had the colostomy created at [facility] when she developed a rectovaginal fistula following chemotherapy and RT for vaginal cancer diagnosed in 2013. She had bilateral nephrostomies as well until internal stents were placed. Her cancer has metastasized to the hip which required surgery and is now in the liver, lungs and possibly the brain. Her right subdiaphragmatic metastases are the source of her worst recent pain. She is on chronic narcotic analgesia and her diet has regressed to mainly liquidy foods. She eats no fiber. She has chronic gas pain preceding her cancer diagnosis but never had an EGD or a colonoscopy. She did have a previous hysterectomy. - History Source History Provided By: Family Member, Medical Record Limitations to Obtaining History: Language Barrier - Past Medical History ALTERNATIVE MEDICINE PRACTITIONER: Yes: Other (posssible brain metastsis) Cardio/Vascular: Yes: HTN Pulmonary: Yes: Asthma (daughter states this is related to chemorx), Other ( lung metastases) Gastrointestinal: Yes: Other (Colostomy for rectovaginal fistula) Hepatobiliary: Yes: Other (liver metastases) Heme/Onc: Yes: Cancer (advanced vaginal cancer despite several courses of chemotherapy and RT) - Past Surgical History Past Surgical History: Yes: Colostomy (Colostomy for rectovaginal fistula), Hysterectomy Additional Surgical History: Colostomy for rectovaginal fistula - Alcohol/Substance Use Hx Alcohol Use: No - Smoking History Smoking history: Never smoked Have you smoked in the past 12 months: No Aproximately how many cigarettes per day: 0 - Social History Usual Living Arrangement: With Spouse (With family) ADL: Family Assistance 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 (year): age 43 History of Recent Travel: No Home Medications - Allergies Allergies/Adverse Reactions: Allergies Allergy/AdvReac Type Severity Reaction Status Date / Time aspirin Allergy Mild Rash Verified 08/03/17 13:17 ciprofloxacin Allergy Mild Rash Verified 08/03/17 13:17 - Home Medications Home Medications: Ambulatory Orders Fentanyl 1 each TD Q48H 08/03/17 Glipizide 5 mg PO HS 08/03/17 Montelukast Sodium [Singulair] 10 mg PO DAILY 08/03/17 Ondansetron [Zofran -] 4 mg PO TID 08/03/17 Pantoprazole Sodium 40 mg PO DAILY 08/03/17 Tramadol HCl 50 mg PO Q6H 08/03/17 Family Disease History - Family Disease History Other Family History: NO cancers Review of Systems Unable to obtain ROS, reason: limited language barried - Review of Systems Constitutional: reports: Lethargy, Loss of Appetite, Malaise, Unintentional Wgt. Loss, Weakness Gastrointestinal: reports: Abdominal Pain, Bloating, Constipation Physical Exam-GI Vital Signs: Vital Signs Temperature 99.0 F 08/08/17 14:00 Pulse Rate 98 H 08/08/17 14:00 Respiratory Rate 20 08/08/17 14:00 Blood Pressure 120/67 08/08/17 14:00 O2 Sat by Pulse Oximetry (%) 95 08/08/17 09:00 CBC,CMP WBC 9.0 K/mm3 (4.0-10.0) 08/08/17 06:30 RBC 3.83 M/mm3 (3.60-5.2) 08/08/17 06:30 Hgb 10.8 GM/dL (10.7-15.3) 08/08/17 06:30 Hct 32.5 % (32.4-45.2) 08/08/17 06:30 MCV 84.8 fl (80-96) 08/08/17 06:30 MCH 28.3 pg (25.7-33.7) 08/08/17 06:30 MCHC 33.3 g/dl (32.0-36.0) 08/08/17 06:30 RDW 20.1 % (11.6-15.6) H 08/08/17 06:30 Plt Count 141 K/MM3 (134-434) 08/08/17 06:30 MPV 7.9 fl (7.5-11.1) 08/08/17 06:30 Neutrophils % 74.3 % (42.8-82.8) 08/06/17 07:38 Lymphocytes % 10.8 % (8-40) 08/06/17 07:38 Monocytes % 11.1 % (3.8-10.2) H 08/06/17 07:38 Eosinophils % 3.2 % (0-4.5) D 08/06/17 07:38 Basophils % 0.6 % (0-2.0) 08/06/17 07:38 Sodium 138 mmol/L (136-145) 08/08/17 06:30 Potassium 2.7 mmol/L (3.5-5.1) L* 08/08/17 06:30 Chloride 98 mmol/L (98-107) 08/08/17 06:30 Carbon Dioxide 35 mmol/L (21-32) H 08/08/17 06:30 Anion Gap 5 (8-16) L 08/08/17 06:30 BUN 2 mg/dL (7-18) L* 08/08/17 06:30 Creatinine 0.6 mg/dL (0.55-1.02) 08/08/17 06:30 Creat Clearance w eGFR > 60 (>60) 08/07/17 07:45 Random Glucose 108 mg/dL (74-106) H 08/08/17 06:30 Lactic Acid 2.4 mmol/L (0.0-2.0) H* 08/03/17 18:03 Calcium 10.7 mg/dL (8.5-10.1) H 08/08/17 06:30 Ionized Calcium 7.8 mg/dL (4.5-5.6) H 08/04/17 15:00 Magnesium 1.6 mg/dL (1.8-2.4) L 08/08/17 06:30 Total Bilirubin 0.8 mg/dL (0.2-1.0) D 08/07/17 07:45 AST 54 U/L (15-37) H 08/07/17 07:45 ALT 11 U/L (12-78) L 08/07/17 07:45 Alkaline Phosphatase 156 U/L (45-117) H 08/07/17 07:45 Ammonia 26.20 umol/L (11-32) 08/04/17 15:00 Creatine Kinase 95 IU/L (26-192) 08/03/17 14:21 Troponin I < 0.02 ng/ml (0.00-0.05) 08/03/17 14:21 Total Protein 8.0 g/dl (6.4-8.2) 08/07/17 07:45 Total Protein (PEP) 7.9 g/dL (6.0-8.5) 08/04/17 13:45 Albumin 1.4 g/dl (3.4-5.0) L 08/07/17 07:45 Albumin (PEP) 1.8 gm/dl (2.9-4.4) L 08/04/17 13:45 Globulin 6.1 g/dL (2.2-3.9) H 08/04/17 13:45 Albumin/Globulin Ratio 0.3 (0.7-1.7) L 08/04/17 13:45 Beta Globulins 1.5 gm/dL (0.7-1.3) H 08/04/17 13:45 Vitamin B12 5892 pg/ml (180-914) H 08/04/17 15:00 TSH 2.76 uIU/ml (0.358-3.74) 08/05/17 06:25 Current Medications Generic Name Dose Route Start Last Admin Trade Name Freq PRN Reason Stop Dose Admin Fentanyl 1 patch 08/03/17 22:30 08/07/17 22:14 Duragesic 100mcg Patch - TD Not Given Q48H [facility] Fentanyl 1 patch 08/04/17 14:30 08/07/17 14:41 Duragesic 75mcg Patch - TD 1 patch Q72H [facility] Administration Dextrose/Sodium Chloride 1,000 mls @ 75 mls/hr 08/03/17 22:30 08/08/17 11:37 D5-1/2ns - IV 75 mls/hr ASDIR [facility] Administration Ceftriaxone Sodium 1 gm/ 50 mls @ 100 mls/hr 08/07/17 10:00 08/08/17 10:50 Dextrose IVPB 100 mls/hr DAILY [facility] Administration Protocol Miscellaneous 1 each 08/04/17 14:20 08/07/17 14:48 Duragesic Patch Waste MC 1 each PRN PRN Administration PAIN Montelukast Sodium 10 mg 08/03/17 22:30 08/07/17 21:58 Singulair - PO 10 mg HS [facility] Administration Ondansetron HCl 4 mg 08/08/17 10:00 08/08/17 17:56 Zofran Injection IVPUSH Not Given Q8H [facility] Pantoprazole Sodium 40 mg 08/04/17 10:00 08/08/17 10:46 Protonix - PO 40 mg DAILY [facility] Administration Polyethylene Glycol 17 gm 08/07/17 10:00 08/08/17 10:50 Miralax (For Daily Use) - PO 17 gm DAILY [facility] Administration Senna 2 tab 08/06/17 14:30 08/08/17 10:45 Senna - PO 2 tab DAILY [facility] Administration Constitutional: Yes: Anxious, Mild Distress Eyes: Yes: Conjunctiva Clear HENT: Yes: Atraumatic Neck: Yes: Supple, Trachea Midline Cardiovascular: Yes: Regular Rate and Rhythm Respiratory: Yes: CTA Bilaterally Gastrointestinal Inspection: Yes: Distention, Scars (healed midline vertical and Pfannensteil incisions LLQ colostomy manually disempacted of hard fecal pellets and then with mineral oil enemas x 2) ...Auscultate: Yes: Hypoactive Bowel Sounds ...Palpate: Yes: Soft, Other (no focal tenderness) ...Rectal Exam: Yes: Guaiac Negative (brown hard stool from colostomy is guaiac negative) Labs: CBC, BMP 08/08/17 06:30 08/08/17 06:30 Imaging - Results X-ray: Image Reviewed (no obstruction) Problem List - Problems (1) Narcotic bowel syndrome Assessment/Plan: Fecal impaction due to constipating effects of narcotic analgesia. I have disempacted the colostomy and instilled mineral oil to melt more proximally located fecaliths. Will start Miralax to relieve more proximal impaction and relieve the component of abdominal pain due to colon distension and her vomiting. If this fails will consider course of Relistor. I discussed the long-term need for mineral oil with her daughter. Code(s): K63.89 - OTHER SPECIFIED DISEASES OF INTESTINE (2) Fecal impaction of colon Code(s): K56.41 - FECAL IMPACTION (3) Colostomy status Code(s): Z93.3 - COLOSTOMY STATUS (4) Primary vaginal malignancy Code(s): C52 - MALIGNANT NEOPLASM OF VAGINA
[2017-08-08] MEDS: traMADol HCL 50 MG TABLET PO PRN (21:34)
[2017-08-08] MEDS: MONTELUKAST NA 10 MG TABLET PO SCH (21:35)
[2017-08-09] MEDS: ONDANSETRON 4 MG/2 ML VIAL IVPUSH SCH ×3 (02:46→18:13)
[2017-08-09] MEDS: DEXTROSE 5%-0.45% SALINE 1,000 ML IV SCH (05:43)
[2017-08-09] MEDS: traMADol HCL 50 MG TABLET PO PRN ×2 (05:46→17:31)
[2017-08-09 07:40] LABS: BASO % 0.9 % (0-2.0); EOS % 1.9 % (0-4.5); HEMATOCRIT 29.2 % (32.4-45.2); HEMOGLOBIN 9.8 GM/dL (10.7-15.3); LYMPH % 11.9 % (8-40); MCH 28.6 pg (25.7-33.7); MCHC 33.5 g/dl (32.0-36.0); MEAN CELL VOLUME 85.3 fl (80-96); MEAN PLT VOLUME 7.6 fl (7.5-11.1); MONO % 13.5 % (3.8-10.2); NEUT % 71.8 % (42.8-82.8); PLATELET COUNT 123 K/MM3 (134-434); RBC 3.42 M/mm3 (3.60-5.2); RDW 20.1 % (11.6-15.6); WHITE BLOOD COUNT 7.8 K/mm3 (4.0-10.0)
[2017-08-09 08:02] LABS: CHLORIDE 100 mmol/L (98-107); SODIUM 139 mmol/L (136-145)
[2017-08-09 08:32] LABS: ALBUMIN 1.3 g/dl (3.4-5.0); ANION GAP 5 (8-16); BILIRUBIN,TOTAL 0.7 mg/dL (0.2-1.0); BLOOD UREA NITROGEN 3 mg/dL (7-18); CALCIUM 10.3 mg/dL (8.5-10.1); CO2 34 mmol/L (21-32); CREATININE 0.6 mg/dL (0.55-1.02); GLUCOSE,RANDOM 109 mg/dL (74-106); MAGNESIUM 1.7 mg/dL (1.8-2.4); SGOT/AST 50 U/L (15-37); SGPT/ALT 10 U/L (12-78); TOT PROT 7.6 g/dl (6.4-8.2)
[2017-08-09 08:33] LABS: ALK PHOS 159 U/L (45-117)
[2017-08-09 08:36] LABS: POTASSIUM 2.8 mmol/L (3.5-5.1)
--- NOTE | 2017-08-09 09:32 | PN ---
Progress Note, Physician Chief Complaint: Pt lying in bed,afebrile,mildly dehydrated Gi f/u appreciated,impression was narcotic bowel syndrome and disimpaction of stool through colostomy done,and mineral oil instilled through colostomy done Xray abdomen no evidence of obstuction pt is on iv antibiotics no vomiting blood cul negative Mri of brain shows metastatic nodule in the RT parietal region Hypokalemia and hypomagnesemia - Current Medication List Current Medications: Active Medications Fentanyl (Duragesic 100mcg Patch -) 1 patch TD Q48H [facility] Last Admin: 08/07/17 22:14 Dose: Not Given Fentanyl (Duragesic 75mcg Patch -) 1 patch TD Q72H [facility] Last Admin: 08/07/17 14:41 Dose: 1 patch Dextrose/Sodium Chloride (D5-1/2ns -) 1,000 mls @ 75 mls/hr IV ASDIR [facility] Last Admin: 08/09/17 05:43 Dose: 75 mls/hr Ceftriaxone Sodium 1 gm/ (Dextrose) 50 mls @ 100 mls/hr IVPB DAILY [facility] PRN Reason: Protocol Last Admin: 08/08/17 10:50 Dose: 100 mls/hr Miscellaneous (Duragesic Patch Waste) 1 each MC PRN PRN PRN Reason: PAIN Last Admin: 08/07/17 14:48 Dose: 1 each Montelukast Sodium (Singulair -) 10 mg PO HS [facility] Last Admin: 08/08/17 21:35 Dose: 10 mg Ondansetron HCl (Zofran Injection) 4 mg IVPUSH Q8H [facility] Last Admin: 08/09/17 02:46 Dose: Not Given Pantoprazole Sodium (Protonix -) 40 mg PO DAILY [facility] Last Admin: 08/08/17 10:46 Dose: 40 mg Polyethylene Glycol (Miralax (For Daily Use) -) 17 gm PO DAILY [facility] Last Admin: 08/08/17 10:50 Dose: 17 gm Senna (Senna -) 2 tab PO DAILY [facility] Last Admin: 08/08/17 10:45 Dose: 2 tab Tramadol HCl (Ultram -) 50 mg PO Q8H PRN PRN Reason: PAIN LEVEL 7 - 10 Last Admin: 08/09/17 05:46 Dose: 50 mg - Objective Vital Signs: Vital Signs Temperature 97.8 F 08/09/17 06:00 Pulse Rate 105 H 08/09/17 06:00 Respiratory Rate 20 08/09/17 06:00 Blood Pressure 133/80 08/09/17 06:00 O2 Sat by Pulse Oximetry (%) 96 08/08/17 20:44 Constitutional: Yes: No Distress Eyes: Yes: Conjunctiva Clear HENT: Yes: Atraumatic Neck: Yes: Supple Cardiovascular: Yes: Regular Rate and Rhythm Respiratory: Yes: Regular, CTA Bilaterally Gastrointestinal: Yes: Hypoactive Bowel Sounds, Other (colostomy bag in place) Edema: No Peripheral Pulses WNL: Yes Neurological: Yes: Alert Psychiatric: Yes: Alert Labs: CBC, BMP 08/09/17 06:30 08/09/17 06:30 Assessment/Plan AMS resolved constipation Vomiting UTI ,metabolic encephalopathy symptoms resolving 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
--- NOTE | 2017-08-09 09:46 | PN ---
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 S/P RT and Chemo. Patient seen and examined with her son at the bedside who aided with the history. Appreciate Dr. Garibay consult and coverage over the weekend. S/P colostomy and rectovaginal fistula repair. S/P B/ L ureteral stents. Known lung and liver mets. Consulted for altered mental status in the context of toxic metabolic enceph, multifactorial, with underlying infection, narcotics and hyperCa. MRI brain completed and reviewed. Met nodule noted in high convexity. PCP aware, ongoing medical mgmt. Discussed further with son. Rad Onc note dicussed and patient reports they'd want to repeat MRI in 3 mons. Agree that AMS more likely 2/2 to infection especially since she is improving with Abx. Active Medications Fentanyl (Duragesic 100mcg Patch -) 1 patch TD Q48H [facility] Last Admin: 08/07/17 22:14 Dose: Not Given Fentanyl (Duragesic 75mcg Patch -) 1 patch TD Q72H [facility] Last Admin: 08/07/17 14:41 Dose: 1 patch Dextrose/Sodium Chloride (D5-1/2ns -) 1,000 mls @ 75 mls/hr IV ASDIR [facility] Last Admin: 08/09/17 05:43 Dose: 75 mls/hr Ceftriaxone Sodium 1 gm/ (Dextrose) 50 mls @ 100 mls/hr IVPB DAILY [facility] PRN Reason: Protocol Last Admin: 08/08/17 10:50 Dose: 100 mls/hr Potassium Chloride (Potassium Chloride 10 Meq Premix Ivpb -) 10 meq in 100 mls @ 100 mls/hr IVPB Q60M [facility] Stop: 08/09/17 13:44 Magnesium Sulfate (Magnesium Sulfate) 2 gm IVPB ONCE ONE Stop: 08/09/17 09:33 Miscellaneous (Duragesic Patch Waste) 1 each MC PRN PRN PRN Reason: PAIN Last Admin: 08/07/17 14:48 Dose: 1 each Montelukast Sodium (Singulair -) 10 mg PO HS [facility] Last Admin: 08/08/17 21:35 Dose: 10 mg Ondansetron HCl (Zofran Injection) 4 mg IVPUSH Q8H [facility] Last Admin: 08/09/17 02:46 Dose: Not Given Pantoprazole Sodium (Protonix -) 40 mg PO DAILY [facility] Last Admin: 08/08/17 10:46 Dose: 40 mg Polyethylene Glycol (Miralax (For Daily Use) -) 17 gm PO DAILY [facility] Last Admin: 08/08/17 10:50 Dose: 17 gm Senna (Senna -) 2 tab PO DAILY [facility] Last Admin: 08/08/17 10:45 Dose: 2 tab Tramadol HCl (Ultram -) 50 mg PO Q8H PRN PRN Reason: PAIN LEVEL 7 - 10 Last Admin: 08/09/17 05:46 Dose: 50 mg Vital Signs Period Temp Pulse Resp BP Sys/Stanley Pulse Ox Last 24 Hr 97.8 F-99.0 F 98-105 20-20 120-138/67-80 96 SUNNI: No bruits. No head trauma. Pt denies pain. In NAD Card: Normal S1,S2 Lungs: Clear, no wheezing Abd: Soft, not tender NEURO: Knows person, place, month but not the year (baseline for her CN II-XII: normal, no facial droop, no aphasia or dysarthria Motor: Strength intact Reflexes: 2+ Coord: No FTN dystaxia Sensory: Normal Gait: Deferred CBCD WBC 7.8 K/mm3 (4.0-10.0) 08/09/17 06:30 RBC 3.42 M/mm3 (3.60-5.2) L 08/09/17 06:30 Hgb 9.8 GM/dL (10.7-15.3) L 08/09/17 06:30 Hct 29.2 % (32.4-45.2) L 08/09/17 06:30 MCV 85.3 fl (80-96) 08/09/17 06:30 MCHC 33.5 g/dl (32.0-36.0) 08/09/17 06:30 RDW 20.1 % (11.6-15.6) H 08/09/17 06:30 Plt Count 123 K/MM3 (134-434) L 08/09/17 06:30 MPV 7.6 fl (7.5-11.1) 08/09/17 06:30 CMP Sodium 139 mmol/L (136-145) 05/11/18 06:30 Potassium 2.8 mmol/L (3.5-5.1) L* 08/09/17 06:30 Chloride 100 mmol/L (98-107) 08/09/17 06:30 Carbon Dioxide 34 mmol/L (21-32) H 08/09/17 06:30 Anion Gap 5 (8-16) L 08/09/17 06:30 BUN 3 mg/dL (7-18) L 08/09/17 06:30 Creatinine 0.6 mg/dL (0.55-1.02) 08/09/17 06:30 Creat Clearance w eGFR > 60 (>60) 08/09/17 06:30 Calcium 10.3 mg/dL (8.5-10.1) H 08/09/17 06:30 Total Bilirubin 0.7 mg/dL (0.2-1.0) 08/09/17 06:30 AST 50 U/L (15-37) H 08/09/17 06:30 ALT 10 U/L (12-78) L 08/09/17 06:30 Alkaline Phosphatase 159 U/L (45-117) H 08/09/17 06:30 Total Protein 7.6 g/dl (6.4-8.2) 08/09/17 06:30 Albumin 1.3 g/dl (3.4-5.0) L 08/09/17 06:30 MRI brain reviewed A/P 61 yo female with h/o DM, HTN, 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 S/P RT and Chemo. Patient seen and examined with her son at the bedside who aided with the history. Appreciate Dr. Garibay consult and coverage over the weekend. S/P colostomy and rectovaginal fistula repair. S/P B/ L ureteral stents. Known lung and liver mets. Consulted for altered mental status in the context of toxic metabolic enceph, multifactorial, with underlying infection, narcotics and hyperCa. Continue hydration, ID following, on Ceftriaxone now. MRI brain reviewed. Rad onc note reviewed. Discussed plan with son. Medical optimization and mgmt thus far.
[2017-08-09] MEDS ORDERED: MAGNESIUM 2GM/50ML STERILE WATER IVPB IVPB ONE (10:30)
[2017-08-09] MEDS ORDERED: cefTRIAXone SODIUM 1 GM VIAL ONE (10:49)
[2017-08-09] MEDS ORDERED: PT OWN MED DRAWER 7, Y5N ONE (10:49)
[2017-08-09] MEDS ORDERED: DEXTROSE 5%-WATER - 50 ML IVPB ONE (10:49)
[2017-08-09] MEDS: PANTOPRAZOLE 40 MG TABLET (FP) PO SCH (10:57)
[2017-08-09] MEDS: SENNOSIDES 8.6MG TABLET (FP) PO SCH (10:57)
[2017-08-09] MEDS: CEFTRIAXONE 1 GM in DEXTROSE 5%-WATER - 50 ML IVPB SCH (10:58)
[2017-08-09] MEDS: POLYETHYLENE GLYCOL 3350 119 GM BTL PO SCH (10:58)
[2017-08-09] MEDS: POTASSIUM CHLORIDE 10 MEQ in SODIUM CHLORIDE 100 ML IVPB SCH ×4 (12:32→17:32)
--- NOTE | 2017-08-09 14:10 | PN ---
GI Progress Note Subjective: GI NOte: The vomiting has stopped since the disempaction but there is no colostomy output today. She has begun to eat again however. - Objective Vital Signs: Vital Signs Temperature 97.8 F 08/09/17 06:00 Pulse Rate 105 H 08/09/17 06:00 Respiratory Rate 20 08/09/17 06:00 Blood Pressure 133/80 08/09/17 06:00 O2 Sat by Pulse Oximetry (%) 96 08/08/17 20:44 Laboratory Tests 08/09/17 06:30 Potassium 2.8 L* BUN 3 L Creatinine 0.6 Albumin 1.3 L Constitutional: Anxious Gastrointestinal Inspection: Yes: Distention ...Auscultate: Yes: Hypoactive Bowel Sounds ...Palpate: Yes: Soft, Other (nontender) Labs: CBC, BMP 08/09/17 06:30 08/09/17 06:30 Problem List - Problems (1) Narcotic bowel syndrome Assessment/Plan: Fecal impaction due to constipating effects of narcotic analgesia. No output despite disempaction. Will start Relistor which blocks the narcotic effect on the bowel but not the CHIEF QUALITY OFFICER. Continue Miralax. Dr Kerr will be covering this weekend. Code(s): K63.89 - OTHER SPECIFIED DISEASES OF INTESTINE (2) Fecal impaction of colon Code(s): K56.41 - FECAL IMPACTION (3) Colostomy status Code(s): Z93.3 - COLOSTOMY STATUS (4) Primary vaginal malignancy Code(s): C52 - MALIGNANT NEOPLASM OF VAGINA
[2017-08-09] MEDS ORDERED: Methylnaltrexone Bromide 12 MG/0.6 ML KIT SQ SCH (14:30)
[2017-08-09 14:59] VITALS: BP 124/79; PULSE 103; TEMP 98.1
[2017-08-09] MEDS ORDERED: POLYETHYLENE GLYCOL 3350 119 GM BTL PO SCH (22:00)
--- NOTE | 2017-08-09 23:31 | PN ---
Progress Note (short form) - Note Progress Note: Patient seen and examined improved hydration AFVSS Cor: RSR, No murmurs, No gallops Lungs: Clear to P&A Abd: Soft, Normal bowel sounds, No organomegaly Ext:No significant edema Abnormal Lab Results 08/04/17 08/05/17 13:45 10:45 Potassium 2.6 L* Anion Gap 5 L BUN 4 L Random Glucose 123 H AST 54 H ALT 10 L Alkaline Phosphatase 134 H Albumin 1.4 L Albumin (PEP) 1.8 L Globulin 6.1 H Albumin/Globulin Ratio 0.3 L Beta Globulins 1.5 H IgG 3654 H IgA 1089 H Meds reviewed A/P 61 y/o patient with widely metastatic vaginal cancer. Originally diagnosed in 2013, s/p cis/RT, complicated by rectovagina fistula, s/p surgical repair, Developed recurrence--s/p carbo/taxol , aslo s/p 2nd line alimta nd 3d line everolimus, now with progressive disease <1cm brain mets (2) lesions failure to thrive poor performance status family understands poor prognosis Want to continue IV hydration and hence not going for fullhospice discussed raina/rajiv davis---they are not yet ready for it discussed with daughter in detail
--- NOTE | 2017-08-12 10:34 | DS ---
DATE OF ADMISSION: DATE OF DISCHARGE: Discharge summary DATE OF DICTATION: 08/09/2017 HISTORY OF PRESENT ILLNESS: The patient is a 61-year-old female with stage IV vaginal cancer with metastases to the lungs, liver, status post chemotherapy, radiation, status post rectal vaginal fistula, bilateral ureteric stent placement status post colostomy hypertension, admitted with complaints of altered mental status, failure to thrive, associated vomiting, unsteady gait. Patient was taking glipizide, Singulair, Zofran, pantoprazole, tramadol at home, and fentanyl patch. Patient is allergic to CIPROFLOXACIN and ASPIRIN. PHYSICAL EXAMINATION: VITAL SIGNS: In the emergency room, vitals: temperature 98.6, pulse 81 per minute, respirations 18, blood pressure 113/64, pulse oximetry 98%. General: On examination of the patient in the emergency room, on general examination patient is appropriately dressed, thin, mild dehydration present. Head/Neck: Normal. Respiratory System: Chest clear to auscultation. Cardiovascular: First and second sounds normal. Abdomen: Soft. No tenderness. No distention. Bowel sounds present. Extremity: Mild edema present. Colostomy bag present. Stoma healthy. Neurologic: Awake, alert. Slightly altered mental status. LABORATORY: Regarding the labs in the emergency room, hemoglobin 11.2, hematocrit 32.9, platelets 177. WBC 8.5. CMP: Sodium 137, potassium 2.8, BUN 5, creatinine 0.7, sugar 107, chloride 98, bicarbonate 33. Chest x-ray was done in the emergency room. There was no significant change. EKG done shows normal sinus rhythm, right bundle branch block. Cannot rule out inferior infarct when compared with ECG of June 24ureteric stent CAT scan of the head done. It shows no evidence of acute intracranial pathology. Patient was given IV fluid and IV antibiotics in the emergency room to cover the urosepsis. Urine shows in the emergency room, urine protein 1+, urine blood 2+, leukocyte esterase 2+, WBCs 14, RBCs 1. Urine culture shows contaminated urine. Blood culture was negative. Patient was seen by Neurology and impression was toxic metabolic encephalopathy and recommended to monitor the calcium, decrease the fentanyl patch dose, recommend to continue the hydration, and patient was also given parenteral thiamine for 3 days. ID consult was done. Recommended to continue cefepime IV 1 g daily and continue the hydration. So patient was treated with pain medicine, IV antibiotics, IV fluid, and potassium was low, so rate was monitored daily and supplemented with the potassium IV and magnesium was low, it was supplemented. Brain MRA done, it shows 7-mm right parietal metastatic nodule. Urology followed the patient. Oncology followed the patient, recommended to continue the comfort measures. Colostomy bag was empty. There was no stool, and patient was complaining of abdominal pain and distention, so abdominal x-ray done. No evidence of any intestinal obstruction. GI consult called. Disimpaction of stool through the stoma done, and the mineral oil applied to the colostomy stoma. Patient had bowel movement today. Patient was stable during the hospitalization, was afebrile. Patient discharged home on home medications, pain medicine, blood pressure medication. Discharged home in a stable condition. CHANO HUTCHINS M.D. [id number] MTDD
== END 2017-08-09 20:50 | disposition home or self-care (01) | DRG 689 ==
LOC: JER 13:11 → JERBED 17:36 → J6S 20:48
PROVIDERS: ADMIT Family Medicine; ATTEND Family Medicine
DX: N39.0 Urinary tract infection, site not specified (principal); G92 Toxic encephalopathy; C78.00 Secondary malignant neoplasm of unspecified lung; C78.7 Secondary malignant neoplasm of liver and intrahepatic bile duct; J90 Pleural effusion, not elsewhere classified; C79.31 Secondary malignant neoplasm of brain; E87.6 Hypokalemia; E86.0 Dehydration; Z85.89 Personal history of malignant neoplasm of other organs and systems; C52 Malignant neoplasm of vagina; E11.9 Type 2 diabetes mellitus without complications; I10 Essential (primary) hypertension; R62.7 Adult failure to thrive; D64.9 Anemia, unspecified; Z93.3 Colostomy status; R33.9 Retention of urine, unspecified; K21.9 Gastro-esophageal reflux disease without esophagitis; E83.52 Hypercalcemia; T40.605A Adverse effect of unspecified narcotics, initial encounter; R44.1 Visual hallucinations; R63.0 Anorexia; Z68.29 Body mass index [BMI] 29.0-29.9, adult; E83.42 Hypomagnesemia; K56.41 Fecal impaction
CPT/HCPCS: 36415; 70450-TC; 70553-TC; 71045-TC-FY; 74018-TC-FY; 80048; 80053; 81003; 81015; 82140; 82330; 82550; 82607; 82784; 83605; 83735; 83883; 84155; 84165; 84425; 84443; 84484; 85025; 85027; 87040; 87086; 93005; 93010; 99285-25; J7030

== ENCOUNTER 2017-08-13 12:24 | Inpatient (IN) | payer OTHER ==
[2017-08-13] MEDS ORDERED: SODIUM CHLORIDE 1,000 ML IV STA ×2 (12:59→17:13)
--- NOTE | 2017-08-13 13:49 | PDOC ---
History of Present Illness - General Chief Complaint: Weakness Stated Complaint: REVISIT/ ALTERED MENTAL STATUS Time Seen by Provider: 08/13/17 12:37 History Source: Other (son) Exam Limitations: No Limitations - History of Present Illness Initial Comments: 08/13/17 13:08 61-year-old female with history of vaginal cancer with metastases presents the ED for evaluation of increased lethargy, decreased appetite, generalized fatigue over the past week. As per son she was recently treated for urinary tract infection and believes she has urinary tract infection again due to home health aids complaint of dark concentrated odorous urine. As per home health aid patient has had no fever or diarrhea. Timing/Duration: getting worse Severity: moderate Associated Symptoms: reports: weakness Past History - Past Medical History Allergies/Adverse Reactions: Allergies Allergy/AdvReac Type Severity Reaction Status Date / Time aspirin Allergy Mild Rash Verified 08/13/17 12:31 ciprofloxacin Allergy Mild Rash Verified 08/13/17 12:31 Home Medications: Ambulatory Orders Fentanyl 1 each TD Q48H 08/03/17 Montelukast Sodium [Singulair] 10 mg PO DAILY 08/03/17 Ondansetron [Zofran -] 4 mg PO TID 08/03/17 Pantoprazole Sodium 40 mg PO DAILY 08/03/17 Tramadol HCl 50 mg PO Q6H 08/03/17 Polyethylene Glycol 3350 [Miralax 119 gm Btl -] 17 gm PO TID bottle 08/09/17 Sennosides [Senna -] 2 tab PO DAILY tablet 08/09/17 Cefuroxime Axetil [Ceftin -] 250 mg PO BID 7 Days #10 tablet 08/17/17 Anemia: Yes Cancer: Yes (vaginal 2014 with mets to lungs and liver) COPD: No Disorders: Yes (HEMATURIA,NEPHOSTOMY TUBES JACOBO.) HTN: Yes Thyroid Disease: No - Surgical History Abdominal Surgery: Yes (colostomy) - Suicide/Smoking/Psychosocial Hx Smoking Status: No Smoking History: Never smoked Have you smoked in the past 12 months: No Number of Cigarettes Smoked Daily: 0 Hx Alcohol Use: No Drug/Substance Use Hx: No Substance Use Type: None Hx Substance Use Treatment: No Patient Lives Alone: No Lives with/in: spouse/SO Review of Systems - Review of Systems Able to Perform ROS?: No Is the patient limited Hebrew proficient: No Constitutional: Yes: Loss of Appetite, Weakness HEENTM: No: Symptoms Reported Respiratory: No: Symptoms reported Cardiac (ROS): No: Symptoms Reported ABD/GI: Yes: Poor Appetite, Poor Fluid Intake : Yes: See HPI Musculoskeletal: Yes: Muscle Weakness Integumentary: No: Symptoms Reported Neurological: Yes: Symptoms reported, Weakness *Physical Exam - Vital Signs Last Vital Signs Temp Pulse Resp BP Pulse Ox 97.9 F 108 H 20 121/74 98 08/13/17 12:28 08/13/17 12:28 08/13/17 12:28 08/13/17 12:28 08/13/17 12:28 - Physical Exam General Appearance: Yes: Nourished, Appropriately Dressed. No: Apparent Distress HEENT: positive: EOMI, MARITZA, TMs Normal, Pharynx Normal (dry). negative: Pale Conjunctivae Neck: positive: Supple Respiratory/Chest: positive: Lungs Clear, Normal Breath Sounds. negative: Respiratory Distress, Accessory Muscle Use Cardiovascular: positive: Regular Rhythm, Tachycardia. negative: Murmur Gastrointestinal/Abdominal: positive: Soft. negative: Tenderness Extremity: positive: Normal Capillary Refill. negative: Pedal Edema Integumentary: positive: Normal Color, Dry, Warm Neurologic: positive: Motor Strength 5/5 (moves extremities on the stretcher) Heart Score/ECG Review - History History: Slightly suspicious - Electrocardiogram EKG: Normal - Age Age: >/= 65 - Risk Factors Based on the list above the patient has:: 1-2 risk factors - Troponin Troponin: </= normal limit - Score Heart Score - Total: 3 - ECG Intrepretation Rhythm: Regular Rhythm (rate 99. normal sinus rhythm. RBBB) ED Treatment Course - LABORATORY CBC & Chemistry Diagram: 08/17/17 08:00 08/17/17 08:00 - RADIOLOGY Radiology Studies Ordered: Category Date Time Status CHEST X-RAY PORTABLE* [RAD] Stat Radiology 08/13/17 12:59 Completed Medical Decision Making - Medical Decision Making 08/13/17 13:54 Patient here for evaluation of decreased appetite, increased lethargy and foul- smelling urine. Patient with recent UTI requiring her to be admitted. Patient on exam was not febrile but appears to be weak and dehydrated. Patient ordered for septic workup, IV fluids and will consult primary care physician for admission. 08/13/17 13:55 X-ray shows no significant change. 08/13/17 14:16 Laboratory Tests 08/13/17 08/13/17 08/13/17 13:45 13:50 13:50 WBC 11.1 H D Hgb 12.1 D Hct 37.9 D RDW 20.8 H Neutrophils % 78.1 Monocytes % 10.6 H VBG pH 7.47 H POC VBG pCO2 51.4 POC VBG pO2 41.5 Mixed VBG HCO3 36.8 H Urine Glucose (UA) Negative Urine Blood 3+ H Ur Leukocyte Esterase 3+ H Urine WBC (Auto) Pending Urine RBC (Auto) Pending 08/13/17 14:24 Ceftriaxone ordered. Case discussed with Dr. Murphy is requesting Dr. Hester infectious disease specialist and Dr. Levy the patient's oncologist for consultation. Hospice consultation was also placed under social work. Patient be admitted to [facility]. 08/13/17 17:15 Laboratory Tests 08/13/17 08/13/17 08/13/17 13:50 13:50 16:38 Potassium 2.8 L* Lactic Acid 3.8 H* 3.7 H* Patient ordered for second liter of fluid and was ordered for 3 runs of potassium 10 mEq *DC/Admit/Observation/Transfer Diagnosis at time of Disposition: Urinary tract infection, Weakness - Discharge Dispostion Disposition: DISCH TO [facility] Condition at time of disposition: Stable Decision to Admit order: Yes - Prescriptions - Referrals - Patient Instructions - Post Discharge Activity
[2017-08-13] MEDS ORDERED: ACETAMINOPHEN 1000 MG/100 ML VIAL (NON FORMULARY) IVPB ONE (13:56)
[2017-08-13 13:57] LABS: URINE APPEARANCE CLOUDY; URINE BILIRUBIN NEGATIVE (<2.0 mg/dL); URINE COLOR AMBER; URINE GLUCOSE (UA) NEGATIVE (NEGATIVE); URINE KETONE NEGATIVE (NEGATIVE); URINE NITRITE NEGATIVE (NEGATIVE); URINE UROBILINOGEN NEGATIVE mg/dL (0.2-1.0)
[2017-08-13 13:58] LABS: URINE LEUK ESTERASE 3+ (NEGATIVE); URINE PROTEIN 2+ (NEGATIVE)
[2017-08-13] MEDS ORDERED: ACETAMINOPHEN INJECTION 100 ML IVPB ONE (14:06)
[2017-08-13 14:12] LABS: BASO % 0.6 % (0-2.0); EOS % 0.1 % (0-4.5); HEMATOCRIT 37.9 % (32.4-45.2); HEMOGLOBIN 12.1 GM/dL (10.7-15.3); LYMPH % 10.6 % (8-40); MCH 27.4 pg (25.7-33.7); MEAN CELL VOLUME 85.7 fl (80-96); MEAN PLT VOLUME 7.9 fl (7.5-11.1); MONO % 10.6 % (3.8-10.2); NEUT % 78.1 % (42.8-82.8); PLATELET COUNT 161 K/MM3 (134-434); RBC 4.42 M/mm3 (3.60-5.2); RDW 20.8 % (11.6-15.6); WHITE BLOOD COUNT 11.1 K/mm3 (4.0-10.0)
[2017-08-13 14:15] LABS: VENOUS PC02 51.4 mmHg (38-52); VENOUS PH 7.47 (7.32-7.42); VENOUS PO2 41.5 mmHg (28-48)
[2017-08-13 14:15] LABS: URINE HYALINE CAST 7 /lpf; URINE MUCUS RARE
[2017-08-13] MEDS ORDERED: CEFTRIAXONE 1 GM in DEXTROSE 5%-WATER - 50 ML IVPB ONE (14:17)
[2017-08-13 14:58] LABS: INR 1.52 (0.82-1.09); PROTHROMBIN TIME (PATIENT) 17.2 SEC (9.7-13.0)
[2017-08-13 15:32] LABS: ALBUMIN 1.6 g/dl (3.4-5.0); ANION GAP 6 (8-16); CALCIUM 13.8 mg/dL (8.5-10.1); CHLORIDE 98 mmol/L (98-107); CO2 36 mmol/L (21-32); CREATININE 0.9 mg/dL (0.55-1.02); GLUCOSE,RANDOM 98 mg/dL (74-106); SGOT/AST 77 U/L (15-37); SGPT/ALT 11 U/L (12-78); SODIUM 140 mmol/L (136-145); TOT PROT 9.7 g/dl (6.4-8.2)
[2017-08-13 15:33] LABS: ALK PHOS 194 U/L (45-117); BLOOD UREA NITROGEN 9 mg/dL (7-18)
[2017-08-13 15:37] LABS: POTASSIUM 2.8 mmol/L (3.5-5.1)
[2017-08-13] MEDS ORDERED: KCL 10 MEQ IVPB 10 MEQ/100 ML INFUS.BAG IVPB SCH (15:45)
[2017-08-13] MEDS ORDERED: CEFTRIAXONE 1 GM/50 ML BAG ONE (16:03)
--- NOTE | 2017-08-13 17:07 | EKG ---
Test Reason : Blood Pressure : / mmHG Vent. Rate : 099 BPM Atrial Rate : 100 BPM P-R Int : 204 ms QRS Dur : 148 ms QT Int : 490 ms P-R-T Axes : 045 064 021 degrees QTc Int : 628 ms NORMAL SINUS RHYTHM RIGHT BUNDLE BRANCH BLOCK ABNORMAL ECG Confirmed by MD VENICE, SPENSER ([id number]) on 08/13/2017 5:07:22 PM Referred By: Confirmed By:SPENSER MILLARD MD
[2017-08-13] MEDS ORDERED: FENTANYL PATCH WASTE TD PRN (18:25)
[2017-08-13] MEDS ORDERED: ACETAMINOPHEN 325 MG TABLET (FP) PO PRN (18:25)
[2017-08-13] MEDS ORDERED: fentaNYL 75mcg/hr PATCH.TD72 TD SCH (18:30)
[2017-08-13] MEDS: D5-1/2NS+10 MEQ KCL - 10 MEQ/1,000 ML INFUS.BAG IV SCH (18:52)
[2017-08-13] MEDS: PANTOPRAZOLE SODIUM 40 MG VIAL IVPB SCH (18:52)
[2017-08-13] MEDS: POLYETHYLENE GLYCOL 3350 119 GM BTL PO SCH (18:52)
[2017-08-13] MEDS ORDERED: POTASSIUM CHLORIDE 30 MEQ in SODIUM CHLORIDE 300 ML IVPB ONE (19:00)
[2017-08-13] MEDS: ONDANSETRON 4 MG/2 ML VIAL IVPUSH PRN (20:44)
--- NOTE | 2017-08-13 21:59 | PN ---
Progress Note (short form) - Note Progress Note: ID Consult dictated UTI/ possible sepsis secondary to UTI Obstructive uropathy Dehydration Metastatic ca IVF hydration Pending c/s empiric ceftriaxone
[2017-08-13] MEDS: traMADol HCL 50 MG TABLET PO PRN (22:38)
[2017-08-14] MEDS: D5-1/2NS+10 MEQ KCL - 10 MEQ/1,000 ML INFUS.BAG IV SCH ×2 (06:41→23:06)
[2017-08-14 07:29] LABS: BASO % 0.4 % (0-2.0); EOS % 1.2 % (0-4.5); HEMATOCRIT 30.5 % (32.4-45.2); HEMOGLOBIN 10.1 GM/dL (10.7-15.3); LYMPH % 8.5 % (8-40); MCH 28.6 pg (25.7-33.7); MEAN CELL VOLUME 86.7 fl (80-96); MEAN PLT VOLUME 7.6 fl (7.5-11.1); NEUT % 79.9 % (42.8-82.8); PLATELET COUNT 111 K/MM3 (134-434); RBC 3.52 M/mm3 (3.60-5.2); WHITE BLOOD COUNT 10.5 K/mm3 (4.0-10.0)
[2017-08-14] MEDS: traMADol HCL 50 MG TABLET PO PRN ×3 (07:30→23:12)
[2017-08-14 07:49] LABS: CHLORIDE 103 mmol/L (98-107); SODIUM 142 mmol/L (136-145)
--- NOTE | 2017-08-14 07:59 | HP ---
DATE OF ADMISSION: DATE OF DICTATION: 08/13/2017 The patient is a 61-year-old female with history of metastatic vaginal cancer, diabetes, history of rectovaginal fistula status post colostomy, ureteric stent placement, came to the emergency room for evaluation of lethargy, decreased appetite, altered mental status, generalized fatigue over the past week. Patient was recently discharged from the hospital after treating for urinary infection and altered mental status. Patient has no fever, no diarrhea. As per the family, the condition is getting worse so brought for evaluation and treatment. ALLERGIES: ALLERGY, CIPROFLOXACIN. HOME MEDICATIONS: Patient is on fentanyl, Zofran, omeprazole, tramadol, and MiraLax. PAST MEDICAL HISTORY: History of anemia, metastatic vaginal cancer, hematuria, rectovaginal fistula, history of nephrostomy tubes bilaterally, hypertension. PAST SURGICAL HISTORY: Colostomy. PERSONAL HISTORY: Nothing significant. REVIEW OF SYSTEMS: General: Patient is confused. Loss of appetite, weakness. Head and Neck: No symptoms reported. Respiratory: History of shortness of breath, pleural effusion, and status post chest tube placement and removed. Abdomen: History of poor appetite, constipation, colostomy, poor fluid intake. Genitourinary: Patient recently treated for urinary infection. History of metastatic vaginal cancer. Neurologic: Altered mental status, weakness. Patient lives with the family. PHYSICAL EXAMINATION: Vital Signs: In the emergency room temperature 97.9, pulse 108, respirations 20, blood pressure 121/74, pulse oximetry 98%. General: Patient is cachectic, appropriately dressed, no apparent distress. Head and Neck: Neck supple. No JVD. Dry mucous membranes are seen bilateral conjunctiva. Respiratory: Lungs clear bilaterally, clear breath sounds. No accessory muscle use. Cardiovascular: Regular rhythm, tachycardia. No murmur. Gastrointestinal: Colostomy bag in place. Abdomen soft and no tenderness. Extremities: No pedal edema. Neurologic: Patient seems weak and tired so could not evaluate the sensory or motor system. DIAGNOSTIC DATA: EKG shows regular rhythm at a rate of 99, normal sinus rhythm, right bundle branch block. Chest x-ray: No significant changes. Regarding labs: CBC: WBC 11.1, hemoglobin 12.1, hematocrit 37.9, platelets are . PT 17.2, INR 1.52. Chemistry shows sodium 140, potassium 2.8, chloride 98, carbon dioxide of 36, BUN 9, creatinine 0.9, glucose 98, lactic acid 3.8. Calcium 13.8. AST 77, ALT 11, alkaline phosphatase 194. Troponin negative. Urine shows protein 2+, reds 3+, leukocyte esterase 3+, WBC 864, RBC 209. Venous blood gas shows pH 7.47, PCO2 of 51.4, PO2 of 41.5, bicarbonate 36.8. SUMMARY: A 61-year-old female with metastatic vaginal cancer brought to the emergency room for decreased appetite, increased lethargy, and foul-smelling urine, treated recently for urinary tract infection in the hospital and discharged home. Patient was given IV fluid. Blood culture, urine culture sent in the emergency room, and patient was given ceftriaxone, so patient is admitted to the floor with admitting diagnosis of urinary tract infection, altered mental status, weakness, poor p.o. intake, dehydration, metastatic vaginal cancer. PLAN: IV antibiotics, pain management, IV hydration. Oncology consulting, Infectious Disease consult. PROGNOSIS: Poor. CONDITION: Guarded. Patient is DNR. Hemodynamically stable at the time of admission on the floor. Erick [id number]
[2017-08-14 08:05] LABS: ALBUMIN 1.3 g/dl (3.4-5.0); ALK PHOS 156 U/L (45-117); ANION GAP 5 (8-16); BILIRUBIN,TOTAL 0.8 mg/dL (0.2-1.0); BLOOD UREA NITROGEN 7 mg/dL (7-18); CALCIUM 12.6 mg/dL (8.5-10.1); CO2 34 mmol/L (21-32); CREATININE 0.7 mg/dL (0.55-1.02); GLUCOSE,RANDOM 115 mg/dL (74-106); SGOT/AST 65 U/L (15-37); SGPT/ALT 9 U/L (12-78); TOT PROT 7.8 g/dl (6.4-8.2)
[2017-08-14 08:11] LABS: POTASSIUM 2.7 mmol/L (3.5-5.1)
--- NOTE | 2017-08-14 09:37 | PN ---
Progress Note (short form) - Note Progress Note: Known from prior admissions. Pt now re-admitted with lethargy, poor po intake. Seen and examined. detailed d/w son. d/w PMD AFVSS letahrgic dry mm Cor: RSR, No murmurs, No gallops Lungs: Clear to P&A Abd: Soft, Normal bowel sounds, No organomegaly, +ostomy Ext:No significant edema Last Vital Signs Temp Pulse Resp BP Pulse Ox 97.5 F L 89 20 135/81 99 08/14/17 09:31 08/14/17 09:31 08/14/17 09:31 08/14/17 09:31 08/13/17 20:56 CBC, BMP 08/14/17 06:00 08/14/17 06:00 Current Medications Generic Name Dose Route Start Last Admin Trade Name Freq PRN Reason Stop Dose Admin Acetaminophen 650 mg 08/13/17 18:25 Tylenol - PO Q6H PRN FEVER Fentanyl 1 patch 08/15/17 19:00 Duragesic 75mcg Patch - TD Q72H OZZIE Potassium Chloride/Dextrose/Sod Cl 10 meq in 1,000 mls @ 100 mls/hr 08/13/17 18:30 08/14/17 06:41 D5-1/2ns+10 Meq Kcl - IV 100 mls/hr ASDIR OZZIE Administration Ceftriaxone Sodium 2 gm/ 100 mls @ 200 mls/hr 08/14/17 10:00 Dextrose IVPB DAILY OZZIE Protocol Potassium Chloride 10 meq/ 105 mls @ 105 mls/hr 08/14/17 09:45 Sodium Chloride IVPB 08/14/17 13:44 Q1H OZZIE Zoledronic Acid 4 mg/ Sodium 105 mls @ 100 mls/hr 08/14/17 11:00 Chloride IVPB 08/14/17 12:02 ONCE ONE Miscellaneous 1 each 08/13/17 18:25 Duragesic Patch Waste TD PRN PRN MISC Ondansetron HCl 4 mg 08/13/17 18:22 08/13/17 20:44 Zofran Injection IVPUSH 4 mg Q8H PRN Administration NAUSEA AND/OR VOMITING Pantoprazole Sodium 40 mg 08/13/17 18:30 08/13/17 18:52 Protonix Iv IVPB 40 mg DAILY OZZIE Administration Polyethylene Glycol 17 gm 08/13/17 18:30 08/13/17 18:52 Miralax (For Daily Use) - PO Not Given DAILY OZZIE Tramadol HCl 50 mg 08/13/17 18:24 08/14/17 07:30 Ultram - PO 50 mg Q6H PRN Administration PAIN LEVEL 4 - 6 61 y/o patient with widely metastatic vaginal cancer now with progressive disease <1cm brain mets (2) lesions failure to thrive poor performance status UTI HypoK HyperCa Lyte correction zometa for HyperCa Abx as needed detailed d/w Kamron , son, he agreed for [place] now, but request we continue rest of the care requested renal c/s will see her today Emotional support offered.
--- NOTE | 2017-08-14 09:59 | PN ---
Progress Note, Physician Chief Complaint: Pt seen and examined Lethargic,confused Blood cul and urine cul pending HYpokalemia,hypercalcemia ID and Oncology consult appreciated - Current Medication List Current Medications: Active Medications Acetaminophen (Tylenol -) 650 mg PO Q6H PRN PRN Reason: FEVER Fentanyl (Duragesic 75mcg Patch -) [address] [facility] Potassium Chloride/Dextrose/Sod Cl (D5-1/2ns+10 Meq Kcl -) 10 meq in 1,000 mls @ 100 mls/hr IV ASDIR [facility] Last Admin: 08/14/17 06:41 Dose: 100 mls/hr Ceftriaxone Sodium 2 gm/ (Dextrose) 100 mls @ 200 mls/hr IVPB DAILY [facility] PRN Reason: Protocol Potassium Chloride 10 meq/ (Sodium Chloride) 105 mls @ 105 mls/hr IVPB Q1H [facility] Stop: 08/14/17 13:44 Zoledronic Acid 4 mg/ Sodium (Chloride) 105 mls @ 100 mls/hr IVPB ONCE ONE Stop: 08/14/17 12:02 Miscellaneous (Duragesic Patch Waste) 1 each TD PRN PRN PRN Reason: MISC Ondansetron HCl (Zofran Injection) 4 mg IVPUSH Q8H PRN PRN Reason: NAUSEA AND/OR VOMITING Last Admin: 08/13/17 20:44 Dose: 4 mg Pantoprazole Sodium (Protonix Iv) [address] [facility] Last Admin: 08/13/17 18:52 Dose: 40 mg Polyethylene Glycol (Miralax (For Daily Use) -) [address] [facility] Last Admin: 08/13/17 18:52 Dose: Not Given Tramadol HCl (Ultram -) 50 mg PO Q6H PRN PRN Reason: PAIN LEVEL 4 - 6 Last Admin: 08/14/17 07:30 Dose: 50 mg - Objective Vital Signs: Vital Signs Temperature 97.5 F L 08/14/17 09:31 Pulse Rate 89 08/14/17 09:31 Respiratory Rate 20 08/14/17 09:31 Blood Pressure 135/81 08/14/17 09:31 O2 Sat by Pulse Oximetry (%) 99 08/13/17 20:56 Constitutional: Yes: No Distress, Anxious Eyes: Yes: WNL HENT: Yes: WNL Neck: Yes: WNL Cardiovascular: Yes: WNL Respiratory: Yes: Regular Gastrointestinal: Yes: Normal Bowel Sounds, Other (colostomy in [place) Musculoskeletal: Yes: WNL Extremities: Yes: WNL Edema: No Peripheral Pulses WNL: Yes Neurological: Yes: Confusion, Lethargy, Weakness Labs: CBC, BMP 08/14/17 06:00 08/14/17 06:00 INR, PTT INR 1.52 (0.82-1.09) H 08/13/17 13:50 Assessment/Plan AMS UTI,R/O sepsis Dehydration Metastatic vaginal cancer Hypokalemia,hypercalcemia PLAN Continue antibiotics K suppliment Nephrology consult for electrolyte abnormality DNR Hospice evaluation Prognosis poor comfort care
[2017-08-14] MEDS ORDERED: DEXTROSE 5%-WATER 100 ML IVPB ONE (10:10)
[2017-08-14] MEDS: CEFTRIAXONE 2 GM in DEXTROSE 5%-WATER 100 ML IVPB SCH (10:13)
[2017-08-14] MEDS: POLYETHYLENE GLYCOL 3350 119 GM BTL PO SCH (10:13)
[2017-08-14] MEDS: PANTOPRAZOLE SODIUM 40 MG VIAL IVPB SCH (10:13)
[2017-08-14] MEDS ORDERED: ZOLEDRONIC ACID 4 MG in SODIUM CHLORIDE 100 ML IVPB ONE (11:00)
[2017-08-14] MEDS: POTASSIUM CHLORIDE 10 MEQ in SODIUM CHLORIDE 100 ML IVPB SCH ×4 (11:27→14:30)
[2017-08-14 14:11] LABS: MAGNESIUM 1.4 mg/dL (1.8-2.4)
--- NOTE | 2017-08-14 17:49 | PN ---
Progress Note (short form) - Note Progress Note: Renal Consult for Hypercalcemia and Hypokalemia This is a 61 year old woman with PMhx of Metastatic Vaginal Ca who presented with complaints of weakness, body pain and poor oral intake and found to have hypercalcemia and hypomagnesemia. Pt s/p recent admission for UTI/AMS. Son reports poor oral intake. Ca was elevated during last admission but much higher now. No Ca supplements. No flank pain. Denies any diarrhea, N/V. No SOB, chest pain, fever, chills. PMhx: as above Allergies: NKDA Family hx: NC Social Hx: No T/A/D ROS: as pre HPI Vital Signs Temperature 97.6 F 08/14/17 13:41 Pulse Rate 102 H 08/14/17 13:41 Respiratory Rate 20 08/14/17 13:41 Blood Pressure 153/95 08/14/17 13:41 O2 Sat by Pulse Oximetry (%) 99 08/14/17 09:00 Intake & Output 08/11/17 08/12/17 08/13/17 08/14/17 23:59 23:59 23:59 23:59 Intake Total 50 1100 Balance 50 1100 Weight 79.379 kg 73.936 kg NAD on NC O2 Awake and alert No JVD, neck supple RRR, No M/R CTA, soft NT/ND no LE edema CBC, BMP 08/14/17 06:00 08/14/17 06:00 Current Medications Acetaminophen (Tylenol -) 650 mg PO Q6H PRN PRN Reason: FEVER Fentanyl (Duragesic 75mcg Patch -) 1 patch TD Q72H OZZIE Potassium Chloride/Dextrose/Sod Cl (D5-1/2ns+10 Meq Kcl -) 10 meq in 1,000 mls @ 100 mls/hr IV ASDIR OZZIE Last Admin: 08/14/17 06:41 Dose: 100 mls/hr Ceftriaxone Sodium 2 gm/ (Dextrose) 100 mls @ 200 mls/hr IVPB DAILY OZZIE PRN Reason: Protocol Last Admin: 08/14/17 10:13 Dose: 200 mls/hr Magnesium Sulfate (Magnesium Sulf 2 G/50 Ml Bag) 2 gm IVPB Q1H OZZIE Stop: 08/14/17 19:01 Miscellaneous (Duragesic Patch Waste) 1 each TD PRN PRN PRN Reason: MISC Ondansetron HCl (Zofran Injection) 4 mg IVPUSH Q8H PRN PRN Reason: NAUSEA AND/OR VOMITING Last Admin: 08/13/17 20:44 Dose: 4 mg Pantoprazole Sodium (Protonix Iv) 40 mg IVPB DAILY OZZIE Last Admin: 08/14/17 10:13 Dose: 40 mg Polyethylene Glycol (Miralax (For Daily Use) -) 17 gm PO DAILY OZZIE Last Admin: 08/14/17 10:13 Dose: Not Given Tramadol HCl (Ultram -) 50 mg PO Q6H PRN PRN Reason: PAIN LEVEL 4 - 6 Last Admin: 08/14/17 13:45 Dose: 50 mg 61 year old woman with PMhx of Metastatic Vaginal Ca who presented with complaints of weakness, body pain and poor oral intake and found to have hypercalcemia and hypomagnesemia. #Hypercalcemia (Corrected Ca ~14) #Hypokalemia #Hypomagnesemia #Metstatic Squamous Vaginal Ca Agree with aggressive IVF with KCL Trend BMP, K, Mg Q12h will supplement Mg Sulfate 4g in total today s/p 40meq of IV KCL earlier today, will repeat BMP in evening and supplement as needed Oncology follow up Prognosis is poor Tommy James DO
[2017-08-14] MEDS: MAGNESIUM 2GM/50ML STERILE WATER IVPB IVPB SCH ×2 (18:42→20:50)
--- NOTE | 2017-08-14 21:21 | PN ---
Progress Note, Physician History of Present Illness: Son at bedside Somewhat more responsive. Able to eat a small amount Still very lethargic Afebrile - Current Medication List Current Medications: Active Medications Acetaminophen (Tylenol -) 650 mg PO Q6H PRN PRN Reason: FEVER Fentanyl (Duragesic 75mcg Patch -) 1 patch TD Q72H [facility] Potassium Chloride/Dextrose/Sod Cl (D5-1/2ns+10 Meq Kcl -) 10 meq in 1,000 mls @ 100 mls/hr IV ASDIR [facility] Last Admin: 08/14/17 06:41 Dose: 100 mls/hr Ceftriaxone Sodium 2 gm/ (Dextrose) 100 mls @ 200 mls/hr IVPB DAILY OZZIE PRN Reason: Protocol Last Admin: 08/14/17 10:13 Dose: 200 mls/hr Miscellaneous (Duragesic Patch Waste) 1 each TD PRN PRN PRN Reason: MISC Ondansetron HCl (Zofran Injection) 4 mg IVPUSH Q8H PRN PRN Reason: NAUSEA AND/OR VOMITING Last Admin: 08/13/17 20:44 Dose: 4 mg Pantoprazole Sodium (Protonix Iv) 40 mg IVPB DAILY [facility] Last Admin: 08/14/17 10:13 Dose: 40 mg Polyethylene Glycol (Miralax (For Daily Use) -) 17 gm PO DAILY [facility] Last Admin: 08/14/17 10:13 Dose: Not Given Tramadol HCl (Ultram -) 50 mg PO Q6H PRN PRN Reason: PAIN LEVEL 4 - 6 Last Admin: 08/14/17 13:45 Dose: 50 mg - Objective Vital Signs: Vital Signs Temperature 98.1 F 08/14/17 19:00 Pulse Rate 107 H 08/14/17 19:00 Respiratory Rate 20 08/14/17 19:00 Blood Pressure 134/63 08/14/17 19:00 O2 Sat by Pulse Oximetry (%) 99 08/14/17 09:00 Constitutional: Yes: No Distress, Cachectic Cardiovascular: Yes: Regular Rate and Rhythm, S1, S2 Respiratory: Yes: CTA Bilaterally Gastrointestinal: Yes: Normal Bowel Sounds Edema: No Labs: CBC, BMP 08/14/17 06:00 08/14/17 18:45 INR, PTT INR 1.52 (0.82-1.09) H 08/13/17 13:50 Assessment/Plan UTI/ Possible sepsis secondary to UTI Metastatic carcinoma Await cultures Continue empiric ceftriaxone
--- NOTE | 2017-08-14 21:57 | HOSP ---
Subjective - Review of Symptoms Events since last encounter: Pt with L foot that is cool to touch, which initially identified by daughter who is currently at bedside. Per daughter, pt was complaining that her L sock was bothersome early this evening. When daughter went to adjust sock she felt pt 's L foot was cold. RN notified PMD, who requested that Hospitalist service evaluate patient. Patient is confused and lethargic, and unable to provide ROS currently. Physical exam notable for L foot cool to touch on dorsal and plantar aspects. DP and PT pulses are palpable, but slightly diminished compared to R foot, which is warm. No skin color changes or edema noted bilaterally. Patient unresponsive to questioning of sensation or pain, but does not appear to be wincing or withdrawing to palpation of Left foot or calf. Physical Examination Vital Signs: Vital Signs Temperature 98.1 F 08/14/17 19:00 Pulse Rate 107 H 08/14/17 19:00 Respiratory Rate 20 08/14/17 19:00 Blood Pressure 134/63 08/14/17 19:00 O2 Sat by Pulse Oximetry (%) 99 08/14/17 09:00 Extremities: Yes: Cold Edema: No Peripheral Pulses WNL: No (Left pulses: DP +1. PT+1 vs Right pulses: DP+2, PT+2) Neurological: Yes: Lethargy, Unresponsive Labs: CBC, BMP 08/14/17 06:00 08/14/17 18:45 Hospitalist Encounter Assessment: 61yo woman with PMhx of Metastatic Vaginal Ca who was found to have L foot cool touch with slightly diminished, but still palpable PT and DP pulses. Patient not on SCDs or DVT PPX. Plan: 1) Stat venous and arterial ultrasound to r/o DVT/thrombus 2) SCDs b/l 3) Start Lovenox 40mg SQ daily for DVT PPX if none is found Daughter in agreement with plan. Visit type - Emergency Visit Emergency Visit: No - New Patient This patient is new to me today: Yes Date on this admission: 08/15/17 - Critical Care Critical Care patient: No
[2017-08-15] MEDS: ONDANSETRON 4 MG/2 ML VIAL IVPUSH PRN (06:34)
[2017-08-15] MEDS ORDERED: POTASSIUM CHLORIDE 20 MEQ in SODIUM CHLORIDE 250 ML IVPB ONE (07:00)
[2017-08-15 07:16] LABS: BASO % 0.6 % (0-2.0); EOS % 1.1 % (0-4.5); HEMATOCRIT 31.2 % (32.4-45.2); HEMOGLOBIN 10.3 GM/dL (10.7-15.3); LYMPH % 8.2 % (8-40); MCH 28.5 pg (25.7-33.7); MCHC 32.9 g/dl (32.0-36.0); MEAN CELL VOLUME 86.5 fl (80-96); MEAN PLT VOLUME 7.8 fl (7.5-11.1); MONO % 8.3 % (3.8-10.2); NEUT % 81.8 % (42.8-82.8); PLATELET COUNT 111 K/MM3 (134-434); RDW 20.6 % (11.6-15.6)
[2017-08-15 07:37] LABS: ALBUMIN 1.3 g/dl (3.4-5.0); ALK PHOS 160 U/L (45-117); ANION GAP 3 (8-16); BILIRUBIN,TOTAL 0.8 mg/dL (0.2-1.0); BLOOD UREA NITROGEN 6 mg/dL (7-18); CALCIUM 10.8 mg/dL (8.5-10.1); CHLORIDE 103 mmol/L (98-107); CO2 35 mmol/L (21-32); CREATININE 0.7 mg/dL (0.55-1.02); GLUCOSE,RANDOM 127 mg/dL (74-106); MAGNESIUM 2.1 mg/dL (1.8-2.4); SGOT/AST 65 U/L (15-37); SGPT/ALT 9 U/L (12-78); SODIUM 141 mmol/L (136-145); TOT PROT 8.1 g/dl (6.4-8.2)
[2017-08-15 07:50] LABS: POTASSIUM 2.7 mmol/L (3.5-5.1)
[2017-08-15] MEDS: traMADol HCL 50 MG TABLET PO PRN ×2 (08:00→16:59)
--- NOTE | 2017-08-15 08:55 | CONSULT ---
Consult Consult Specialty:: Vascular Surgery - History of Present Illness History of Present Illness: 61 year old woman with metastatic cancer to brain, bone hospitalized with recurrent UTI and sepsis developed cool left foot. She has had no complaints of pain or numbness. Arterial and Venous Duplex scans do not show any obstruction. 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 [employer] History of Recent Travel: No Home Medications - Allergies Allergies/Adverse Reactions: Allergies Allergy/AdvReac Type Severity Reaction Status Date / Time aspirin Allergy Mild Rash Verified 08/13/17 12:31 ciprofloxacin Allergy Mild Rash Verified 08/13/17 12:31 - Home Medications Home Medications: Ambulatory Orders Fentanyl 1 each TD Q48H 08/03/17 Glipizide 5 mg PO HS 08/03/17 Montelukast Sodium [Singulair] 10 mg PO DAILY 08/03/17 Ondansetron [Zofran -] 4 mg PO TID 08/03/17 Pantoprazole Sodium 40 mg PO DAILY 08/03/17 Tramadol HCl 50 mg PO Q6H 08/03/17 Polyethylene Glycol 3350 [Miralax 119 gm Btl -] 17 gm PO TID bottle 08/09/17 Sennosides [Senna -] 2 tab PO DAILY tablet 08/09/17 Physical Exam Vital Signs: Vital Signs Temperature 98.4 F 08/15/17 05:56 Pulse Rate 100 H 08/15/17 05:56 Respiratory Rate 18 08/15/17 05:56 Blood Pressure 120/79 08/15/17 05:56 O2 Sat by Pulse Oximetry (%) 93 L 08/14/17 21:00 Constitutional: Yes: No Distress Extremities: Yes: Cool (Left foot), Other (Left foot has no cyanosis or pallor. Motor and sensory exams are grossly normal.) Edema: No Peripheral Pulses WNL: Yes (Palpable left DP) Labs: CBC, BMP 08/15/17 06:00 08/15/17 06:00 Imaging - Results Ultrasound: Report Reviewed Problem List - Problems (1) Autonomic dysfunction Assessment/Plan: Temperature difference between feet in the absence of any vascular occlusion is usually due to an autonomic nervous system defect, in this case possibly related to pressure from a metastasis. Given the patient's overall condition and lack of other symptoms or findings, I do not feel that additional testing is necessary. If skin changes develop or she complains of pain this can be further investigated only if intervention would be considered by patient and family. Code(s): G90.9 - DISORDER OF THE AUTONOMIC NERVOUS SYSTEM, UNSPECIFIED
[2017-08-15] MEDS ORDERED: POTASSIUM CHLORIDE 10 MEQ in SODIUM CHLORIDE 100 ML IVPB SCH (09:00)
[2017-08-15] MEDS ORDERED: DEXTROSE 5%-WATER 100 ML IVPB ONE (09:23)
[2017-08-15] MEDS: POTASSIUM CHLORIDE 20 MEQ in SODIUM CHLORIDE 250 ML IVPB SCH ×2 (09:45→12:15)
[2017-08-15] MEDS ORDERED: POTASSIUM CHLORIDE 20 MEQ PREMIX IVPB 100 ML IVPB SCH (09:45)
[2017-08-15] MEDS: POLYETHYLENE GLYCOL 3350 119 GM BTL PO SCH ×2 (10:00→10:20)
--- NOTE | 2017-08-15 10:00 | PN ---
Progress Note, Physician Chief Complaint: Pt seen and examined,lethargic and confused Lt foot cold,arterial and venous doppler studies negative Vascul;ar surgery note appreciated Pt is DNR and DNI Blood cul negative and urine cul pending HYpokalemia,hypercalcemia ID and Oncology consult appreciated For hospice evaluation - Current Medication List Current Medications: Active Medications Acetaminophen (Tylenol -) 650 mg PO Q6H PRN PRN Reason: FEVER Enoxaparin Sodium (Lovenox -) 40 mg SQ DAILY [facility] Fentanyl (Duragesic 75mcg Patch -) 1 patch TD Q72H [facility] Potassium Chloride/Dextrose/Sod Cl (D5-1/2ns+10 Meq Kcl -) 10 meq in 1,000 mls @ 100 mls/hr IV ASDIR [facility] Last Admin: 08/14/17 23:06 Dose: 100 mls/hr Ceftriaxone Sodium 2 gm/ (Dextrose) 100 mls @ 200 mls/hr IVPB DAILY [facility] PRN Reason: Protocol Last Admin: 08/14/17 10:13 Dose: 200 mls/hr Potassium Chloride 20 meq/ (Sodium Chloride) 260 mls @ 130 mls/hr IVPB Q2H [facility] Stop: 08/15/17 13:59 Miscellaneous (Duragesic Patch Waste) 1 each TD PRN PRN PRN Reason: MISC Ondansetron HCl (Zofran Injection) 4 mg IVPUSH Q8H PRN PRN Reason: NAUSEA AND/OR VOMITING Last Admin: 08/15/17 06:34 Dose: 4 mg Pantoprazole Sodium (Protonix Iv) 40 mg IVPB DAILY [facility] Last Admin: 08/14/17 10:13 Dose: 40 mg Polyethylene Glycol (Miralax (For Daily Use) -) 17 gm PO DAILY [facility] Last Admin: 08/14/17 10:13 Dose: Not Given Tramadol HCl (Ultram -) 50 mg PO Q6H PRN PRN Reason: PAIN LEVEL 4 - 6 Last Admin: 08/14/17 23:12 Dose: 50 mg - Objective Vital Signs: Vital Signs Temperature 98.7 F 08/15/17 09:40 Pulse Rate 102 H 08/15/17 09:40 Respiratory Rate 20 08/15/17 09:40 Blood Pressure 138/56 08/15/17 09:40 O2 Sat by Pulse Oximetry (%) 93 L 08/14/17 21:00 Constitutional: Yes: No Distress, Pallor HENT: Yes: Atraumatic Neck: Yes: WNL, Supple Cardiovascular: Yes: WNL Respiratory: Yes: Regular, CTA Bilaterally Gastrointestinal: Yes: WNL, Other (colostomy working) Extremities: Yes: Cold (Lt foot cold,DP,PT palpable), Other Edema: No Peripheral Pulses WNL: Yes Neurological: Yes: Confusion, Lethargy Labs: CBC, BMP 08/15/17 06:00 08/15/17 06:00 INR, PTT INR 1.52 (0.82-1.09) H 08/13/17 13:50 Assessment/Plan AMS,lethargy UTI,R/O sepsis Dehydration Metastatic vaginal cancer Hypokalemia,hypercalcemia Cold lt foot PLAN Continue antibiotics K suppliment clinimix DNR,DNI Hospice evaluation Prognosis poor comfort care
[2017-08-15] MEDS ORDERED: AMINO ACIDS 4.25%/D5W 1,000 ML IV SCH ×2 (10:15→22:27)
[2017-08-15] MEDS: PANTOPRAZOLE SODIUM 40 MG VIAL IVPB SCH (10:19)
[2017-08-15] MEDS: ENOXAPARIN NA (PORCINE) 40 MG/0.4 ML DISP.SYRIN SQ SCH (10:20)
[2017-08-15] MEDS: CEFTRIAXONE 2 GM in DEXTROSE 5%-WATER 100 ML IVPB SCH (10:20)
[2017-08-15] MEDS ORDERED: POTASSIUM CHLORIDE ORAL LIQUID 20 MEQ/15 ML PO ONE (11:15)
[2017-08-15 13:11] VITALS: BMI 27.9
--- NOTE | 2017-08-15 13:18 | PN ---
Progress Note (short form) - Note Progress Note: Renal follow up for Hypercalcemia/Hypokalemia Pt seen and examined at the bedside son is at the bedside as well no sob, chest pain, abd pain, N/V/D Vital Signs Temperature 98.7 F 08/15/17 09:40 Pulse Rate 102 H 08/15/17 09:40 Respiratory Rate 20 08/15/17 09:40 Blood Pressure 138/56 08/15/17 09:40 O2 Sat by Pulse Oximetry (%) 95 08/15/17 09:00 Intake & Output 08/12/17 08/13/17 08/14/17 08/15/17 23:59 23:59 23:59 23:59 Intake Total 50 2450 1200 Balance 50 2450 1200 Weight 79.379 kg 73.936 kg 73.936 kg NAD awake and alert No LE edema CBC, BMP 08/15/17 06:00 08/15/17 06:00 Laboratory Tests 08/15/17 06:00 Calcium 10.8 H Magnesium 2.1 Current Medications Acetaminophen (Tylenol -) 650 mg PO Q6H PRN PRN Reason: FEVER Enoxaparin Sodium (Lovenox -) 40 mg SQ DAILY [facility] Last Admin: 08/15/17 10:20 Dose: 40 mg Fentanyl (Duragesic 75mcg Patch -) 1 patch TD Q72H [facility] Potassium Chloride/Dextrose/Sod Cl (D5-1/2ns+10 Meq Kcl -) 10 meq in 1,000 mls @ 100 mls/hr IV ASDIR [facility] Last Admin: 08/14/17 23:06 Dose: 100 mls/hr Ceftriaxone Sodium 2 gm/ (Dextrose) 100 mls @ 200 mls/hr IVPB DAILY [facility] PRN Reason: Protocol Last Admin: 08/15/17 10:20 Dose: 200 mls/hr Potassium Chloride 20 meq/ (Sodium Chloride) 260 mls @ 130 mls/hr IVPB Q2H [facility] Stop: 08/15/17 13:59 Last Admin: 08/15/17 12:25 Dose: 130 mls/hr Amino Acids (Clinimix -) 1,000 mls @ 42 mls/hr IV Q23H [facility] Miscellaneous (Duragesic Patch Waste) 1 each TD PRN PRN PRN Reason: MISC Ondansetron HCl (Zofran Injection) 4 mg IVPUSH Q8H PRN PRN Reason: NAUSEA AND/OR VOMITING Last Admin: 08/15/17 06:34 Dose: 4 mg Pantoprazole Sodium (Protonix Iv) 40 mg IVPB DAILY [facility] Last Admin: 08/15/17 10:19 Dose: 40 mg Polyethylene Glycol (Miralax (For Daily Use) -) 17 gm PO DAILY [facility] Last Admin: 08/15/17 10:20 Dose: Not Given Tramadol HCl (Ultram -) 50 mg PO Q6H PRN PRN Reason: PAIN LEVEL 4 - 6 Last Admin: 08/14/17 23:12 Dose: 50 mg 61 year old woman with PMhx of Metastatic Vaginal Ca who presented with complaints of weakness, body pain and poor oral intake and found to have hypercalcemia and hypomagnesemia. #Hypercalcemia (Corrected Ca ~14) #Hypokalemia #Hypomagnesemia #Hypophosphatemia #Metastatic Squamous Vaginal Ca Corrected Ca is now 12.9 continue IVF with KCL s/p IV and PO Kcl supplementation today will give IV K-phos as well repeat Ca, K, Mg, PHos this evening continue supportive care prognosis is poor Tommy James DO
--- NOTE | 2017-08-15 14:12 | PN ---
Progress Note (short form) - Note Progress Note: AFVSS letahrgic dry mm Cor: RSR, No murmurs, No gallops Lungs: Clear to P&A Abd: Soft, Normal bowel sounds, No organomegaly, +ostomy Ext:No significant edema Last Vital Signs Temp Pulse Resp BP Pulse Ox 97.5 F L 89 20 135/81 99 08/14/17 09:31 08/14/17 09:31 08/14/17 09:31 08/14/17 09:31 08/13/17 20:56 CBC, BMP 08/14/17 06:00 08/14/17 06:00 Current Medications Generic Name Dose Route Start Last Admin Trade Name Freq PRN Reason Stop Dose Admin Acetaminophen 650 mg 08/13/17 18:25 Tylenol - PO Q6H PRN FEVER Fentanyl 1 patch 08/15/17 19:00 Duragesic 75mcg Patch - TD Q72H [facility] Potassium Chloride/Dextrose/Sod Cl 10 meq in 1,000 mls @ 100 mls/hr 08/13/17 18:30 08/14/17 06:41 D5-1/2ns+10 Meq Kcl - IV 100 mls/hr ASDIR [facility] Administration Ceftriaxone Sodium 2 gm/ 100 mls @ 200 mls/hr 08/14/17 10:00 Dextrose IVPB DAILY [facility] Protocol Potassium Chloride 10 meq/ 105 mls @ 105 mls/hr 08/14/17 09:45 Sodium Chloride IVPB 08/14/17 13:44 Q1H [facility] Zoledronic Acid 4 mg/ Sodium 105 mls @ 100 mls/hr 08/14/17 11:00 Chloride IVPB 08/14/17 12:02 ONCE ONE Miscellaneous 1 each 08/13/17 18:25 Duragesic Patch Waste TD PRN PRN MISC Ondansetron HCl 4 mg 08/13/17 18:22 08/13/17 20:44 Zofran Injection IVPUSH 4 mg Q8H PRN Administration NAUSEA AND/OR VOMITING Pantoprazole Sodium 40 mg 08/13/17 18:30 08/13/17 18:52 Protonix Iv IVPB 40 mg DAILY [facility] Administration Polyethylene Glycol 17 gm 08/13/17 18:30 08/13/17 18:52 Miralax (For Daily Use) - PO Not Given DAILY [facility] Tramadol HCl 50 mg 08/13/17 18:24 08/14/17 07:30 Ultram - PO 50 mg Q6H PRN Administration PAIN LEVEL 4 - 6 61 y/o patient with widely metastatic vaginal cancer now with progressive disease <1cm brain mets (2) lesions failure to thrive poor performance status UTI HypoK HyperCa Lyte correction s/p zometa for HyperCa Abx as needed appreciate renal c/s severe malnutritio-being considered for clinimax for hospice eval.
[2017-08-15] MEDS ORDERED: POTASSIUM PHOSPHATE 15 MM in DEXTROSE 5%-WATER - 250 ML IVPB ONE (14:30)
[2017-08-15] MEDS: AMINO ACIDS 4.25%/D5W 1,000 ML IV SCH ×2 (18:15→21:27)
--- NOTE | 2017-08-15 18:53 | PN ---
Progress Note, Physician History of Present Illness: More awake, responsive Still confused Seated upright in bed Son at bedside Able to eat a small amount Afebrile - Current Medication List Current Medications: Active Medications Acetaminophen (Tylenol -) 650 mg PO Q6H PRN PRN Reason: FEVER Enoxaparin Sodium (Lovenox -) 40 mg SQ DAILY [facility] Last Admin: 08/15/17 10:20 Dose: 40 mg Fentanyl (Duragesic 75mcg Patch -) 1 patch TD Q72H [facility] Last Admin: 08/15/17 18:13 Dose: 1 patch Ceftriaxone Sodium 2 gm/ (Dextrose) 100 mls @ 200 mls/hr IVPB DAILY [facility] PRN Reason: Protocol Last Admin: 08/15/17 10:20 Dose: 200 mls/hr Amino Acids (Clinimix -) 1,000 mls @ 84 mls/hr IV Q23H [facility] Miscellaneous (Duragesic Patch Waste) 1 each TD PRN PRN PRN Reason: MISC Last Admin: 08/15/17 18:50 Dose: 1 each Ondansetron HCl (Zofran Injection) 4 mg IVPUSH Q8H PRN PRN Reason: NAUSEA AND/OR VOMITING Last Admin: 08/15/17 06:34 Dose: 4 mg Pantoprazole Sodium (Protonix Iv) 40 mg IVPB DAILY [facility] Last Admin: 08/15/17 10:19 Dose: 40 mg Polyethylene Glycol (Miralax (For Daily Use) -) 17 gm PO DAILY [facility] Last Admin: 08/15/17 10:00 Dose: 17 gm Tramadol HCl (Ultram -) 50 mg PO Q6H PRN PRN Reason: PAIN LEVEL 4 - 6 Last Admin: 08/15/17 16:59 Dose: 50 mg - Objective Vital Signs: Vital Signs Temperature 98.4 F 08/15/17 14:59 Pulse Rate 102 H 08/15/17 14:59 Respiratory Rate 20 08/15/17 14:59 Blood Pressure 114/62 08/15/17 14:59 O2 Sat by Pulse Oximetry (%) 95 08/15/17 09:00 Constitutional: Yes: No Distress Eyes: Yes: Conjunctiva Clear Cardiovascular: Yes: Regular Rate and Rhythm, S1, S2 Respiratory: Yes: CTA Bilaterally Gastrointestinal: Yes: Normal Bowel Sounds, Soft Edema: No Labs: CBC, BMP 08/15/17 06:00 05/17/18 06:00 INR, PTT INR 1.52 (0.82-1.09) H 08/13/17 13:50 Assessment/Plan UTI/ Possible sepsis secondary to UTI Metastatic carcinoma Await cultures Continue empiric ceftriaxone Discussed with son at bedside
[2017-08-15] MEDS ORDERED: fentaNYL 75mcg/hr PATCH.TD72 TD SCH (19:00)
[2017-08-15] MEDS ORDERED: morphine SULFATE 4 MG/ML VIAL IVPUSH PRN (22:07)
[2017-08-15 22:23] LABS: ANION GAP 5 (8-16); CALCIUM 9.8 mg/dL (8.5-10.1); CHLORIDE 107 mmol/L (98-107); CO2 31 mmol/L (21-32); CREATININE 0.6 mg/dL (0.55-1.02); GLUCOSE,RANDOM 91 mg/dL (74-106); MAGNESIUM 1.8 mg/dL (1.8-2.4); PHOSPHOROUS 2.4 mg/dL (2.5-4.9); POTASSIUM 3.5 mmol/L (3.5-5.1); SODIUM 143 mmol/L (136-145)
[2017-08-15 22:25] LABS: BLOOD UREA NITROGEN 5 mg/dL (7-18)
[2017-08-15] MEDS: morphine SULFATE 4 MG/ML VIAL IVPUSH PRN (22:35)
[2017-08-16] MEDS: morphine SULFATE 4 MG/ML VIAL IVPUSH PRN ×3 (07:20→20:43)
[2017-08-16 08:07] LABS: ALBUMIN 1.2 g/dl (3.4-5.0); ALK PHOS 158 U/L (45-117); ANION GAP 4 (8-16); BILIRUBIN,TOTAL 0.8 mg/dL (0.2-1.0); BLOOD UREA NITROGEN 8 mg/dL (7-18); CALCIUM 9.2 mg/dL (8.5-10.1); CHLORIDE 105 mmol/L (98-107); CO2 31 mmol/L (21-32); CREATININE 0.6 mg/dL (0.55-1.02); GLUCOSE,RANDOM 104 mg/dL (74-106); SGOT/AST 56 U/L (15-37); SGPT/ALT 9 U/L (12-78); SODIUM 140 mmol/L (136-145); TOT PROT 7.5 g/dl (6.4-8.2)
[2017-08-16 08:22] LABS: POTASSIUM 2.8 mmol/L (3.5-5.1)
[2017-08-16] MEDS ORDERED: DEXTROSE 5%-WATER 100 ML IVPB ONE ×2 (09:48→09:49)
--- NOTE | 2017-08-16 09:51 | PN ---
Progress Note, Physician Chief Complaint: Pt seen and examined Lethargic,confused Blood cul and urine cul negative HYpokalemia,hypercalcemia ID and Oncology,renal consult appreciated awaiting for transfer to [facility] - Current Medication List Current Medications: Active Medications Acetaminophen (Tylenol -) 650 mg PO Q6H PRN PRN Reason: FEVER Enoxaparin Sodium (Lovenox -) 40 mg SQ DAILY [facility] Last Admin: 08/15/17 10:20 Dose: 40 mg Fentanyl (Duragesic 75mcg Patch -) 1 patch TD Q72H [facility] Last Admin: 08/15/17 18:13 Dose: 1 patch Ceftriaxone Sodium 2 gm/ (Dextrose) 100 mls @ 200 mls/hr IVPB DAILY [facility] PRN Reason: Protocol Last Admin: 08/15/17 10:20 Dose: 200 mls/hr Amino Acids (Clinimix -) 1,000 mls @ 84 mls/hr IV ASDIR [facility] Last Admin: 08/15/17 22:00 Dose: 84 mls/hr Miscellaneous (Duragesic Patch Waste) 1 each TD PRN PRN PRN Reason: MISC Last Admin: 08/15/17 18:50 Dose: 1 each Morphine Sulfate (Morphine Sulfate) 1 mg IVPUSH Q4H PRN PRN Reason: PAIN 4-6;UNABLE TO TOLERATE PO Last Admin: 08/16/17 07:20 Dose: 1 mg Ondansetron HCl (Zofran Injection) 4 mg IVPUSH Q8H PRN PRN Reason: NAUSEA AND/OR VOMITING Last Admin: 08/15/17 06:34 Dose: 4 mg Pantoprazole Sodium (Protonix Iv) 40 mg IVPB DAILY [facility] Last Admin: 08/15/17 10:19 Dose: 40 mg Polyethylene Glycol (Miralax (For Daily Use) -) 17 gm PO DAILY [facility] Last Admin: 08/15/17 10:00 Dose: 17 gm Tramadol HCl (Ultram -) 50 mg PO Q6H PRN PRN Reason: PAIN LEVEL 4 - 6 Last Admin: 08/15/17 16:59 Dose: 50 mg - Objective Vital Signs: Vital Signs Temperature 98.3 F 08/16/17 05:55 Pulse Rate 105 H 08/16/17 05:55 Respiratory Rate 18 08/16/17 05:55 Blood Pressure 121/69 08/16/17 05:55 O2 Sat by Pulse Oximetry (%) 93 L 08/15/17 20:10 Constitutional: Yes: No Distress Eyes: Yes: Conjunctiva Clear HENT: Yes: Atraumatic Neck: Yes: Supple, Trachea Midline Cardiovascular: Yes: Regular Rate and Rhythm Respiratory: Yes: Regular, CTA Bilaterally Gastrointestinal: Yes: Normal Bowel Sounds, Other (colostomy working) Musculoskeletal: Yes: WNL Edema: No Peripheral Pulses WNL: Yes Neurological: Yes: Confusion, Lethargy Labs: CBC, BMP 08/15/17 06:00 08/16/17 06:30 INR, PTT INR 1.52 (0.82-1.09) H 08/13/17 13:50 Assessment/Plan AMS UTI,R/O sepsis Dehydration Metastatic vaginal cancer Hypokalemia,hypercalcemia PLAN Continue antibiotics K suppliment DNR awaiting transfer to [facility] Prognosis poor comfort care
[2017-08-16] MEDS ORDERED: morphine SULFATE 4 MG/ML VIAL IVPUSH ONE (10:00)
[2017-08-16] MEDS: ENOXAPARIN NA (PORCINE) 40 MG/0.4 ML DISP.SYRIN SQ SCH (10:22)
[2017-08-16] MEDS: CEFTRIAXONE 2 GM in DEXTROSE 5%-WATER 100 ML IVPB SCH (10:22)
[2017-08-16] MEDS: PANTOPRAZOLE SODIUM 40 MG VIAL IVPB SCH (10:23)
[2017-08-16] MEDS: POTASSIUM CHLORIDE 20 MEQ in AMINO ACIDS 4.25%/D5W 1,000 ML IVPB SCH ×2 (12:46→22:58)
[2017-08-16] MEDS: POTASSIUM CHLORIDE 10 MEQ in SODIUM CHLORIDE 100 ML IVPB SCH ×4 (12:46→19:24)
[2017-08-16] MEDS: POLYETHYLENE GLYCOL 3350 119 GM BTL PO SCH (12:50)
[2017-08-16] MEDS ORDERED: POTASSIUM CHLORIDE ORAL LIQUID 20 MEQ/15 ML PO ONE (12:59)
--- NOTE | 2017-08-16 13:28 | PN ---
Progress Note, Physician History of Present Illness: Awake, confused Supine in bed Son at bedside Able to eat a small amount Afebrile Cultures negative - Current Medication List Current Medications: Active Medications Acetaminophen (Tylenol -) 650 mg PO Q6H PRN PRN Reason: FEVER Enoxaparin Sodium (Lovenox -) 40 mg SQ DAILY [facility] Last Admin: 08/16/17 10:22 Dose: 40 mg Fentanyl (Duragesic 75mcg Patch -) 1 patch TD Q72H [facility] Last Admin: 08/15/17 18:13 Dose: 1 patch Ceftriaxone Sodium 2 gm/ (Dextrose) 100 mls @ 200 mls/hr IVPB DAILY [facility] PRN Reason: Protocol Last Admin: 08/16/17 10:22 Dose: 200 mls/hr Potassium Chloride 10 meq/ (Sodium Chloride) 105 mls @ 105 mls/hr IVPB Q1H [facility] Stop: 08/16/17 13:59 Last Admin: 08/16/17 12:46 Dose: 105 mls/hr Potassium Chloride 20 meq/ (Amino Acids) 1,010 mls @ 84 mls/hr IVPB Q12H [facility] Last Admin: 08/16/17 12:46 Dose: 84 mls/hr Miscellaneous (Duragesic Patch Waste) 1 each TD PRN PRN PRN Reason: MISC Last Admin: 08/15/17 18:50 Dose: 1 each Morphine Sulfate (Morphine Sulfate) 1 mg IVPUSH Q4H PRN PRN Reason: PAIN 4-6;UNABLE TO TOLERATE PO Last Admin: 08/16/17 07:20 Dose: 1 mg Ondansetron HCl (Zofran Injection) 4 mg IVPUSH Q8H PRN PRN Reason: NAUSEA AND/OR VOMITING Last Admin: 08/15/17 06:34 Dose: 4 mg Pantoprazole Sodium (Protonix Iv) 40 mg IVPB DAILY [facility] Last Admin: 08/16/17 10:23 Dose: 40 mg Polyethylene Glycol (Miralax (For Daily Use) -) 17 gm PO DAILY [facility] Last Admin: 08/16/17 12:50 Dose: Not Given Tramadol HCl (Ultram -) 50 mg PO Q6H PRN PRN Reason: PAIN LEVEL 4 - 6 Last Admin: 08/15/17 16:59 Dose: 50 mg - Objective Vital Signs: Vital Signs Temperature 98.3 F 08/16/17 05:55 Pulse Rate 105 H 08/16/17 05:55 Respiratory Rate 18 08/16/17 05:55 Blood Pressure 121/69 08/16/17 05:55 O2 Sat by Pulse Oximetry (%) 93 L 08/15/17 20:10 Constitutional: Yes: No Distress Eyes: Yes: Conjunctiva Clear Cardiovascular: Yes: Regular Rate and Rhythm, S1, S2 Respiratory: Yes: Diminished Gastrointestinal: Yes: Normal Bowel Sounds, Soft. No: Tenderness Labs: CBC, BMP 08/15/17 06:00 08/16/17 06:30 INR, PTT INR 1.52 (0.82-1.09) H 08/13/17 13:50 Assessment/Plan UTI/ Possible sepsis secondary to UTI Obstructive uropathy Metastatic carcinoma Substitute po ceftin
--- NOTE | 2017-08-16 18:28 | PN ---
Progress Note (short form) - Note Progress Note: Renal follow up for Hypercalcemia/Hypokalemia Pt seen and examined at the bedside family at the bedside pt awake but confused as per the family on IVF K was 2.8 this am Vital Signs Temperature 97.9 F 08/16/17 14:41 Pulse Rate 112 H 08/16/17 14:41 Respiratory Rate 18 08/16/17 14:41 Blood Pressure 125/87 08/16/17 14:41 O2 Sat by Pulse Oximetry (%) 94 L 08/16/17 10:00 NAD awake and alert No LE edema CBC, BMP 08/15/17 06:00 08/16/17 06:30 Current Medications Acetaminophen (Tylenol -) 650 mg PO Q6H PRN PRN Reason: FEVER Cefuroxime Axetil (Ceftin -) 250 mg PO BID [facility] Enoxaparin Sodium (Lovenox -) 40 mg SQ DAILY [facility] Last Admin: 08/16/17 10:22 Dose: 40 mg Fentanyl (Duragesic 75mcg Patch -) 1 patch TD Q72H [facility] Last Admin: 08/15/17 18:13 Dose: 1 patch Potassium Chloride 20 meq/ (Amino Acids) 1,010 mls @ 84 mls/hr IVPB Q12H [facility] Last Admin: 08/16/17 12:46 Dose: 84 mls/hr Miscellaneous (Duragesic Patch Waste) 1 each TD PRN PRN PRN Reason: MISC Last Admin: 08/15/17 18:50 Dose: 1 each Morphine Sulfate (Morphine Sulfate) 1 mg IVPUSH Q4H PRN PRN Reason: PAIN 4-6;UNABLE TO TOLERATE PO Last Admin: 08/16/17 16:16 Dose: 1 mg Ondansetron HCl (Zofran Injection) 4 mg IVPUSH Q8H PRN PRN Reason: NAUSEA AND/OR VOMITING Last Admin: 08/15/17 06:34 Dose: 4 mg Pantoprazole Sodium (Protonix Iv) 40 mg IVPB DAILY [facility] Last Admin: 08/16/17 10:23 Dose: 40 mg Polyethylene Glycol (Miralax (For Daily Use) -) 17 gm PO DAILY [facility] Last Admin: 08/16/17 12:50 Dose: Not Given Tramadol HCl (Ultram -) 50 mg PO Q6H PRN PRN Reason: PAIN LEVEL 4 - 6 Last Admin: 08/15/17 16:59 Dose: 50 mg 61 year old woman with PMhx of Metastatic Vaginal Ca who presented with complaints of weakness, body pain and poor oral intake and found to have hypercalcemia and hypomagnesemia. #Hypercalcemia (Corrected Ca ~14) #Hypokalemia #Hypomagnesemia #Hypophosphatemia #Metastatic Squamous Vaginal Ca Corrected CA is WNL to get VIVIEN 80meq total today (40 meq iV AND 40 meq PO) Repeat BMP this evening awaiting transfer to Hospice prognosis is poor Tommy James DO
--- NOTE | 2017-08-16 19:04 | PN ---
Progress Note (short form) - Note Progress Note: Patient seen and examined Nurses report that pain control seems adequate Corrected calcium - normalized Receiving K+ repletion Poor p.o. intake, --on IV clinimix. Awaiting hospice transfer.
[2017-08-16] MEDS: CEFUROXIME AXETIL 250 MG TABLET PO SCH (22:57)
[2017-08-17] MEDS: morphine SULFATE 4 MG/ML VIAL IVPUSH PRN ×2 (03:26→09:00)
[2017-08-17 08:30] LABS: BASO % 0.4 % (0-2.0); EOS % 1.3 % (0-4.5); HEMATOCRIT 31.3 % (32.4-45.2); HEMOGLOBIN 10.1 GM/dL (10.7-15.3); LYMPH % 11.5 % (8-40); MCH 29.2 pg (25.7-33.7); MCHC 32.4 g/dl (32.0-36.0); MEAN CELL VOLUME 90.2 fl (80-96); MEAN PLT VOLUME 8.2 fl (7.5-11.1); MONO % 9.9 % (3.8-10.2); NEUT % 76.9 % (42.8-82.8); PLATELET COUNT 105 K/MM3 (134-434); RBC 3.47 M/mm3 (3.60-5.2)
[2017-08-17 08:50] LABS: ANION GAP 7 (8-16); BLOOD UREA NITROGEN 8 mg/dL (7-18); CALCIUM 8.4 mg/dL (8.5-10.1); CHLORIDE 111 mmol/L (98-107); CO2 24 mmol/L (21-32); CREATININE 0.6 mg/dL (0.55-1.02); GLUCOSE,RANDOM 111 mg/dL (74-106); MAGNESIUM 1.4 mg/dL (1.8-2.4); POTASSIUM 3.2 mmol/L (3.5-5.1); SODIUM 142 mmol/L (136-145)
--- NOTE | 2017-08-17 09:32 | PN ---
Progress Note, Physician Chief Complaint: Pt seen and examined Lethargic,confused Blood cul and urine cul negative HYpokalemia,hypercalcemia ID and Oncology,renal consult appreciated awaiting for transfer to [facility] - Current Medication List Current Medications: Active Medications Acetaminophen (Tylenol -) 650 mg PO Q6H PRN PRN Reason: FEVER Cefuroxime Axetil (Ceftin -) 250 mg PO BID [facility] Last Admin: 08/16/17 22:57 Dose: 250 mg Enoxaparin Sodium (Lovenox -) 40 mg SQ DAILY [facility] Last Admin: 08/16/17 10:22 Dose: 40 mg Fentanyl (Duragesic 75mcg Patch -) 1 patch TD Q72H [facility] Last Admin: 08/15/17 18:13 Dose: 1 patch Potassium Chloride 20 meq/ (Amino Acids) 1,010 mls @ 84 mls/hr IVPB Q12H [facility] Last Admin: 08/16/17 22:58 Dose: Not Given Miscellaneous (Duragesic Patch Waste) 1 each TD PRN PRN PRN Reason: MISC Last Admin: 08/15/17 18:50 Dose: 1 each Morphine Sulfate (Morphine Sulfate) 1 mg IVPUSH Q4H PRN PRN Reason: PAIN 4-6;UNABLE TO TOLERATE PO Last Admin: 08/17/17 03:26 Dose: 1 mg Ondansetron HCl (Zofran Injection) 4 mg IVPUSH Q8H PRN PRN Reason: NAUSEA AND/OR VOMITING Last Admin: 08/15/17 06:34 Dose: 4 mg Pantoprazole Sodium (Protonix Iv) 40 mg IVPB DAILY [facility] Last Admin: 08/16/17 10:23 Dose: 40 mg Polyethylene Glycol (Miralax (For Daily Use) -) 17 gm PO DAILY [facility] Last Admin: 08/16/17 12:50 Dose: Not Given Tramadol HCl (Ultram -) 50 mg PO Q6H PRN PRN Reason: PAIN LEVEL 4 - 6 Last Admin: 08/15/17 16:59 Dose: 50 mg - Objective Vital Signs: Vital Signs Temperature 97.9 F 08/17/17 06:00 Pulse Rate 106 H 08/17/17 06:00 Respiratory Rate 20 08/17/17 06:00 Blood Pressure 149/75 08/17/17 06:00 O2 Sat by Pulse Oximetry (%) 94 L 08/16/17 21:00 Constitutional: Yes: No Distress Eyes: Yes: Conjunctiva Clear HENT: Yes: Atraumatic Neck: Yes: Supple, Trachea Midline Cardiovascular: Yes: Regular Rate and Rhythm Respiratory: Yes: Regular, CTA Bilaterally Gastrointestinal: Yes: Normal Bowel Sounds Extremities: Yes: WNL Edema: No Peripheral Pulses WNL: Yes Neurological: Yes: Confusion, Lethargy Labs: CBC, BMP 08/17/17 08:00 08/17/17 08:00 INR, PTT INR 1.52 (0.82-1.09) H 08/13/17 13:50 Assessment/Plan AMS UTI,R/O sepsis Dehydration Metastatic vaginal cancer Hypokalemia,hypercalcemia PLAN Continue antibiotics K suppliment DNR awaiting transfer to [facility] Prognosis poor comfort care
[2017-08-17] MEDS ORDERED: MAGNESIUM SULF 50% (8.12 MEQ/2 ML-1 GM VIAL) IVPB ONE ×2 (09:47→10:02)
[2017-08-17] MEDS: ENOXAPARIN NA (PORCINE) 40 MG/0.4 ML DISP.SYRIN SQ SCH (09:55)
[2017-08-17] MEDS: CEFUROXIME AXETIL 250 MG TABLET PO SCH (09:55)
[2017-08-17] MEDS: POLYETHYLENE GLYCOL 3350 119 GM BTL PO SCH (09:55)
[2017-08-17] MEDS: PANTOPRAZOLE SODIUM 40 MG VIAL IVPB SCH (09:56)
[2017-08-17 09:57] VITALS: BP 148/84; PULSE 110; TEMP 98.3
[2017-08-17] MEDS ORDERED: KCL 10 MEQ IVPB 10 MEQ/100 ML INFUS.BAG IVPB SCH (10:00)
[2017-08-17] MEDS ORDERED: POTASSIUM CHLORIDE 20 MEQ in AMINO ACIDS 4.25%/D5W 1,000 ML IVPB SCH (10:03)
[2017-08-17] MEDS ORDERED: POTASSIUM CHLORIDE ORAL LIQUID 20 MEQ/15 ML PO ONE (10:03)
[2017-08-17] MEDS ORDERED: POTASSIUM CHLORIDE 20 MEQ in SODIUM CHLORIDE 250 ML IVPB ONE (11:00)
[2017-08-17] MEDS ORDERED: POTASSIUM CHLORIDE 10 MEQ in SODIUM CHLORIDE 100 ML IVPB ONE (13:00)
--- NOTE | 2017-08-18 23:41 | DS ---
DATE OF ADMISSION: DATE OF DISCHARGE: DATE OF DICTATION: 08/18/2017 HISTORY OF PRESENT ILLNESS: The patient is a 61-year-old female with the past medical history of metastatic renal cancer, hypertension, recurrent urinary tract infection status post colostomy, ureteric stent placement , admitted with the complaints of altered mental status, poor oral p.o. intake. Patient complains of body pain and a poor p.o. intake, recently discharged from the hospital after treated for altered mental status and poor p.o. intake and urinary tract infection. ALLERGIES: No known drug allergies. MEDICATION: Home medications reviewed. Patient is on fentanyl, Zofran, pantoprazole, and Ultram at home. At the time of admission, temperature was 97.9, pulse rate 108, respirations 20, blood pressure 121/74, pulse 98. PHYSICAL EXAMINATION: General: Patient is nourished, appropriately dressed, in no apparent distress. Head/Neck: Normal. Chest: Clear. Cardiovascular: First and second sound normal. Abdomen: Soft. Colostomy working. Extremity: No edema. Neurologic: Alert without any confusion. LABORATORY: At the time of admission, WBC was 11.1, hemoglobin 12.1, hematocrit 37.9, platelets 161. CMP: Sodium 140, potassium 2.8, chloride 98, bicarbonate 36, BUN 9, creatinine 0.9, sugar 98. EKG normal. normal. Lactic acid was 3.8 . Patient was admitted with admitting diagnosis of lethargy, altered mental status , and urinary tract infection. Patient was given IV antibiotics, pain medication. Urine culture, blood culture no growth seen. Patient was treated with IV fluid and _pain meds. During the hospitalization, left foot felt cold and clammy, but the pulsation was present. Arterial and venous Doppler done. There was no thrombus or clot seen. Patient was hemodynamically stable in the hospital. Electrolyte imbalance, corrected accordingly . Patient was followed by the ID, oncology, renal. PT stable during the hospitalization. Patient was DNI, DNR, and was on comfort care. Patient placed in hospice care. . Patient transferred in a stable condition to [facility] CHANO HUTCHINS M.D. [id number] [facility]
== END 2017-08-17 12:45 | disposition hospice, inpatient (51) | DRG 54 ==
LOC: JER 12:24 → JERBED 14:25 → J7W 17:30
PROVIDERS: ADMIT Family Medicine; ATTEND Family Medicine
DX: C79.31 Secondary malignant neoplasm of brain (principal); E43 Unspecified severe protein-calorie malnutrition; C78.00 Secondary malignant neoplasm of unspecified lung; C78.7 Secondary malignant neoplasm of liver and intrahepatic bile duct; N39.0 Urinary tract infection, site not specified; C52 Malignant neoplasm of vagina; I10 Essential (primary) hypertension; E86.0 Dehydration; N13.9 Obstructive and reflux uropathy, unspecified; E87.6 Hypokalemia; E83.52 Hypercalcemia; J45.909 Unspecified asthma, uncomplicated; E83.39 Other disorders of phosphorus metabolism; G90.9 Disorder of the autonomic nervous system, unspecified; E83.42 Hypomagnesemia; R62.7 Adult failure to thrive; Z93.3 Colostomy status; Z66 Do not resuscitate
CPT/HCPCS: 36415; 71045-TC-FY; 80048; 80053; 81003; 81015; 82310; 82803; 83605; 83735; 83970; 84100; 84132; 84484; 85025; 85610; 86850; 86900; 86901; 87040; 87086; 93005; 93010; 93926-TC; 93971-TC; 99281-25; J0131; J3489; J7030